=== PATIENT | female | born 1935 | race Caucasian/White ===

== ENCOUNTER → 2018-02-15 | Outpatient (CLI) | payer MEDICARE, BC ==
[2018-02-15 13:19] LABS: Basophils % (A) 0 %; Eosinophils # (A) 0.2 k/uL (0-0.7); Eosinophils % (A) 2 %; HCT 45.8 % (34.0-46.0); HGB 14.8 gm/dL (11.4-16.0); Lymphocytes # (A) 2.8 k/uL (1.0-4.8); Lymphocytes % (A) 32 %; MCH 32.7 pg (25.0-35.0); MCHC 32.3 g/dL (31.0-37.0); MCV 101.4 fL (80.0-100.0); Macrocytosis Slight; Monocytes # (A) 0.5 k/uL (0-1.0); Monocytes % (A) 5 %; Neutrophils # (A) 4.9 k/uL (1.3-7.7); Neutrophils % (A) 56 %; Platelet Count 179 k/uL (150-450); RBC 4.51 m/uL (3.80-5.40); WBC 8.7 k/uL (3.8-10.6)
[2018-02-15 19:16] LABS: T4, Free (Free Thyroxine) 1.5 ng/dL (0.80-1.80)
[2018-02-15 19:17] LABS: Albumin 4.2 g/dL (3.80-4.90); Albumin/Globulin Ratio 1.4 (1.20-2.10); Anion Gap 11.4 mmol/L (4.00-12.00); Calcium 9.9 mg/dL (8.7-10.3); Carbon Dioxide 23.6 mmol/L (21.6-31.8); LDL Cholesterol,Calculated 105.8 mg/dL (0.0-131.0); Magnesium 1.8 mg/dL (1.5-2.4); Potassium 4.5 mmol/L (3.5-5.5); Total Protein 7.2 g/dL (6.2-8.2); VLDL Calculation 23.2 mg/dL (5.00-40.00)
== END | disposition home or self-care (01) ==
LOC: LABWHC1 12:40
PROVIDERS: ATTEND Family Medicine
DX: E55.9 Vitamin D deficiency, unspecified (principal); R53.83 Other fatigue; E03.8 Other specified hypothyroidism; E78.5 Hyperlipidemia, unspecified
CPT/HCPCS: 36415; 80053; 80061; 82306; 82607; 83735; 84439; 84443; 85025

== ENCOUNTER 2018-07-12 13:20 | Emergency (ER) | payer MEDICARE, BC ==
[2018-07-12] MEDS ORDERED: ACETAMINOPHEN TAB 500 MG TAB PO STA (15:31)
--- NOTE | 2018-07-12 15:32 | XR ---
EXAMINATION TYPE: XR foot complete LT DATE OF EXAM: 07/12/2018 CLINICAL HISTORY: Left foot pain. Focal pain and swelling of the left second toe without injury. TECHNIQUE: Frontal, lateral, and oblique images of the left foot are obtained. COMPARISON: None FINDINGS: There is no acute fracture/dislocation evident in the left foot. The joint spaces in the left foot appear within normal limits. The overlying soft tissue appears unremarkable. There is a pu nctate radiopaque foreign body of the medial aspect of the soft tissues of the second toe of the left foot adjacent to the proximal diaphysis of the proximal phalanx. This measures 1 mm. There is genera lized osseous demineralization of the left foot. Degenerative changes are seen of the forefoot and mi dfoot. There is a small plantar enthesophyte and moderate Achilles enthesophyte. IMPRESSION: 1. No acute fracture or dislocation in the left foot. 2. Punctate foreign body of the medial second digit soft tissues near the 1st-2nd digit webspace. 3. Diffuse osseous demineralization, heel spurs, and degenerative changes of the forefoot and midfoot .
--- NOTE | 2018-07-12 15:54 | ED ---
Extremity Problem HPI - General Chief complaint: Extremity Problem,Nontraumatic Stated complaint: Leg Swelling, Foot Pain Time Seen by Provider: 07/12/18 15:05 Source: patient, family Mode of arrival: wheelchair Limitations: no limitations - History of Present Illness Initial comments: Patient is a 82-year-old female complaining of the left second toe pain 1 week. Patient denies any trauma. Patient was in the hospital visiting her and one of nurses saw her swelling and thought she should get an x-ray. Patient has chronic lower extremity swelling. No other complaints at this time. - Related Data Home Medications Medication Instructions Recorded Confirmed Atorvastatin Calcium [Lipitor] 10 mg PO HS 07/12/18 07/12/18 Levothyroxine Sodium [Synthroid] 150 mcg PO MOTUWETH 07/12/18 07/12/18 Levothyroxine Sodium [Synthroid] 225 mcg PO SUFRSA 07/12/18 07/12/18 Losartan [Cozaar] 25 mg PO DAILY 07/12/18 07/12/18 amLODIPine [Norvasc] 10 mg PO DAILY 07/12/18 07/12/18 Allergies Allergy/AdvReac Type Severity Reaction Status Date / Time No Known Allergies Allergy Verified 07/12/18 15:29 Review of Systems ROS Statement: Those systems with pertinent positive or pertinent negative responses have been documented in the HPI. ROS Other: All systems not noted in ROS Statement are negative. Past Medical History Past Medical History: Cancer, Hyperlipidemia, Hypertension, Myocardial Infarction ([place]), Osteoarthritis (OA), Thyroid Disorder Additional Past Surgical History / Comment(s): BILATERAL MASTECTOMY, MELANOMA Past Psychological History: Anxiety Smoking Status: Never smoker Past Alcohol Use History: None Reported Past Drug Use History: None Reported General Exam - General Exam Comments Initial Comments: GENERAL: Well-appearing, well-nourished and in no acute distress. HEAD: Atraumatic, normocephalic. EYES: Pupils equal round and reactive to light, extraocular movements intact, sclera anicteric, conjunctiva are normal. ENT: TMs normal, nares patent, oropharynx clear without exudates. Moist mucous membranes. NECK: Normal range of motion, supple without lymphadenopathy or JVD. LUNGS: Breath sounds clear to auscultation bilaterally and equal. No wheezes rales or rhonchi. HEART: Regular rate and rhythm without murmurs, rubs or gallops. ABDOMEN: Soft, nontender, normoactive bowel sounds. No guarding, no rebound. No masses appreciated. : Deferred EXTREMITIES: TTP over the left second toe. Range of motion is normal. Sensation is normal. 2+ pitting edema in the left foot NEUROLOGICAL: Cranial nerves II through XII grossly intact. Normal speech, normal gait. PSYCH: Normal mood, normal affect. SKIN: Warm, Dry, normal turgor, no rashes or lesions noted. Limitations: no limitations Course Vital Signs 07/12/18 14:08 Temperature 97.9 F Pulse Rate 67 Respiratory 16 Rate Blood Pressure 154/74 O2 Sat by Pulse 99 Oximetry Medical Decision Making - Medical Decision Making Patient is a 82-year-old female complaining of left second toe pain 1 week. On exam she is tender to palpation, full range of motion. X-ray shows possible foreign body in the webspace between the first and second toe. Correlation on exam reveals no erythema and no signs of infection. Patient will be discharged and will follow up with ortho if pain continues. Disposition Clinical Impression: Left foot pain Disposition: HOME SELF-CARE Condition: Stable Instructions (If sedation given, give patient instructions): Arthralgia (ED) Additional Instructions: Please return to the Emergency Department if symptoms worsen or any other concerns. Follow up with orthopedic if pain continues. Is patient prescribed a controlled substance at d/c from ED?: No Referrals: Lindsay Coy MD [Primary Care Provider] - 1-2 days
[2018-07-12 16:14] VITALS: BP 132/55; PULSE 69; RESP 18; TEMP 98.3
== END 2018-07-12 16:14 | disposition home or self-care (01) ==
LOC: EC 13:20
DX: M79.672 Pain in left foot (principal); R60.0 Localized edema; M79.675 Pain in left toe(s); E78.5 Hyperlipidemia, unspecified; I10 Essential (primary) hypertension; E07.9 Disorder of thyroid, unspecified; I25.2 Old myocardial infarction; Z79.890 Hormone replacement therapy; Z79.899 Other long term (current) drug therapy; Z87.39 Personal history of other diseases of the musculoskeletal system and connective tissue; Z85.820 Personal history of malignant melanoma of skin; Z98.890 Other specified postprocedural states
CPT/HCPCS: 99283

== ENCOUNTER 2018-07-18 12:27 | Emergency (ER) | payer MEDICARE, BC ==
[2018-07-18] MEDS ORDERED: KETOROLAC 30 MG/ML 1 ML VIAL IM STA (13:30)
--- NOTE | 2018-07-18 13:35 | ED ---
General Adult HPI - General Chief complaint: Extremity Problem,Nontraumatic Stated complaint: left foot (gout) Time Seen by Provider: 07/18/18 13:19 Source: patient, RN notes reviewed, old records reviewed Mode of arrival: ambulatory Limitations: physical limitation - History of Present Illness Initial comments: 82-year-old female with left second toe pain for the past several weeks. She denies injury or trauma. She was seen in the emergency department approximately one week ago, she had an x-ray at that time. She states the pain has persisted. She's been taking Tylenol arthritis with minimal relief. She denies fever. She states there was some swelling although this has improved. Denies pain at the ankle or calf. No known history of gout or pseudogout. - Related Data Home Medications Medication Instructions Recorded Confirmed Atorvastatin Calcium [Lipitor] 10 mg PO HS 07/12/18 07/12/18 Levothyroxine Sodium [Synthroid] 150 mcg PO MOTUWETH 07/12/18 07/12/18 Levothyroxine Sodium [Synthroid] 225 mcg PO SUFRSA 07/12/18 07/12/18 Losartan [Cozaar] 25 mg PO DAILY 07/12/18 07/12/18 amLODIPine [Norvasc] 10 mg PO DAILY 07/12/18 07/12/18 Previous Rx's Medication Instructions Recorded Ibuprofen [Motrin] 400 mg PO Q8HR #15 tab 07/18/18 Allergies Allergy/AdvReac Type Severity Reaction Status Date / Time No Known Allergies Allergy Verified 07/18/18 13:10 Review of Systems ROS Statement: Those systems with pertinent positive or pertinent negative responses have been documented in the HPI. ROS Other: All systems not noted in ROS Statement are negative. Past Medical History Past Medical History: Cancer, Hyperlipidemia, Hypertension, Myocardial Infarction ([place]), Osteoarthritis ([place]), Thyroid Disorder History of Any Multi-Drug Resistant Organisms: None Reported Additional Past Surgical History / Comment(s): BILATERAL MASTECTOMY, MELANOMA Past Psychological History: Anxiety Smoking Status: Never smoker Past Alcohol Use History: None Reported Past Drug Use History: None Reported General Exam Limitations: physical limitation General appearance: alert, in no apparent distress Head exam: Present: atraumatic, normocephalic Eye exam: Present: normal appearance, PERRL Neck exam: Present: normal inspection. Absent: tenderness, meningismus Respiratory exam: Present: normal lung sounds bilaterally. Absent: respiratory distress, wheezes Cardiovascular Exam: Present: regular rate, normal rhythm GI/Abdominal exam: Present: soft. Absent: distended, tenderness Extremities exam: Present: other (Left foot, normal cap refill, no swelling of the digits or midfoot, there is tenderness at the base of the second toe. No pain with range of motion. No swelling or erythema.) Course Vital Signs 07/18/18 13:07 Temperature 97.9 F Pulse Rate 84 Respiratory 18 Rate Blood Pressure 128/65 O2 Sat by Pulse 99 Oximetry Medical Decision Making - Medical Decision Making 82-year-old female with left second toe pain. Exam unremarkable, no signs of infection in the foot or toes. No external signs of trauma, no bruising, normal range of motion. She does have some point tenderness at the base of the second toe. She is currently taking Tylenol arthritis. She will be prescribed short course of Motrin 400. She will follow-up with her primary care physician. She will be given orthopedic follow-up. Disposition Clinical Impression: Left foot pain, Osteoarthritis Disposition: HOME SELF-CARE Condition: Good Prescriptions: Ibuprofen [Motrin] 400 mg PO Q8HR #15 tab Is patient prescribed a controlled substance at d/c from ED?: No Referrals: Lindsay Coy MD [Primary Care Provider] - 1-2 days Time of Disposition: 13:34
[2018-07-18 14:40] VITALS: BP 122/66; PULSE 81; RESP 16; TEMP 98
== END 2018-07-18 14:39 | disposition home or self-care (01) ==
LOC: EC 12:27
DX: M19.072 Primary osteoarthritis, left ankle and foot (principal); I10 Essential (primary) hypertension; E78.5 Hyperlipidemia, unspecified; I25.2 Old myocardial infarction; E07.9 Disorder of thyroid, unspecified; Z79.890 Hormone replacement therapy; Z79.899 Other long term (current) drug therapy; Z85.820 Personal history of malignant melanoma of skin; Z90.13 Acquired absence of bilateral breasts and nipples
CPT/HCPCS: 99283; 96372; J1885

== ENCOUNTER → 2018-09-20 | Outpatient (CLI) | payer MEDICARE, BC ==
[2018-09-20 14:05] LABS: Basophils # (A) 0.1 k/uL (0-0.2); Basophils % (A) 1 %; Eosinophils # (A) 0.1 k/uL (0-0.7); Eosinophils % (A) 1 %; HCT 40.9 % (34.0-46.0); HGB 13.3 gm/dL (11.4-16.0); Lymphocytes # (A) 1.9 k/uL (1.0-4.8); Lymphocytes % (A) 21 %; MCH 33.1 pg (25.0-35.0); MCHC 32.4 g/dL (31.0-37.0); MCV 102.1 fL (80.0-100.0); Macrocytosis Slight; Mean Platelet Volume 10.4; Monocytes # (A) 0.8 k/uL (0-1.0); Monocytes % (A) 9 %; Neutrophils % (A) 66 %; Platelet Count 218 k/uL (150-450); RDW 15.2 % (11.5-15.5); WBC 9.2 k/uL (3.8-10.6)
[2018-09-20 19:52] LABS: T4, Free (Free Thyroxine) 1.7 ng/dL (0.80-1.80)
[2018-09-20 20:04] LABS: African American GFR (CKD) 34.7 (60.0-200.0); Albumin 3.7 g/dL (3.80-4.90); Albumin/Globulin Ratio 1.37 (1.60-3.17); Anion Gap 11.4 mmol/L (4.00-12.00); BUN/Creat Ratio 13.13 Ratio (12.00-20.00); Calcium 9.6 mg/dL (8.7-10.3); Carbon Dioxide 23.6 mmol/L (21.6-31.8); Chol/HDL Ratio 3.32; Globulin 2.7 g/dL (1.6-3.3); LDL Cholesterol,Calculated 107.8 mg/dL (0.0-131.0); Magnesium 1.8 mg/dL (1.5-2.4); Non-African American GFR(CKD) 29.9 (60.0-200.0); Potassium 4.9 mmol/L (3.5-5.5); Total Bilirubin 1.4 mg/dL (0.3-1.2); Total Protein 6.4 g/dL (6.2-8.2); VLDL Calculation 24.2 mg/dL (5.00-40.00)
== END | disposition home or self-care (01) ==
LOC: LABWHC1 12:43
PROVIDERS: ATTEND Family Medicine
DX: E78.5 Hyperlipidemia, unspecified (principal); E03.8 Other specified hypothyroidism; R11.0 Nausea; R18.8 Other ascites
CPT/HCPCS: 36415; 80053; 80061; 83690; 83735; 84439; 84443; 85025

== ENCOUNTER → 2018-09-29 | Outpatient (CLI) | payer MEDICARE, BC ==
[2018-09-30 00:35] LABS: African American GFR (CKD) 30.1 (60.0-200.0); Anion Gap 14.2 mmol/L (4.00-12.00); BUN/Creat Ratio 13.33 Ratio (12.00-20.00); Calcium 9.6 mg/dL (8.7-10.3); Carbon Dioxide 23.8 mmol/L (21.6-31.8); Non-African American GFR(CKD) 25.9 (60.0-200.0); Potassium 4.7 mmol/L (3.5-5.5)
== END | disposition home or self-care (01) ==
LOC: LABWHC1 15:27
PROVIDERS: ATTEND Family Medicine
DX: N17.9 Acute kidney failure, unspecified (principal); R18.8 Other ascites
CPT/HCPCS: 36415; 80048; 85652

== ENCOUNTER → 2018-09-30 | Outpatient (CLI) | payer MEDICARE, BC ==
--- NOTE | 2018-09-30 20:32 | CT ---
EXAMINATION TYPE: CT abdomen pelvis wo con DATE OF EXAM: 09/30/2018 COMPARISON: None HISTORY: Ascites and lower leg edema. CT DLP: 971 mGycm Examination of the solid and hollow viscera is limited given the lack of contrast. FINDINGS: LUNG BASES: No evidence for nodule. No evidence for infiltrate. LIVER/GB: Diminutive liver with peripheral nodular contour compatible with cirrhotic liver disease. T here is evidence of force surrounding ascites throughout the upper abdomen. Cholelithiasis is identif ied. PANCREAS: No pancreatic mass identified. No inflammatory process seen. SPLEEN: No evidence for splenomegaly. No intrasplenic lesions seen. ADRENALS: No adrenal nodules identified. Mild right-sided adrenal glandular hyperplasia. KIDNEYS: No evidence for renal mass. No nephrolithiasis. No hydronephrosis. No renal hematoma identif ied. BOWEL: There appear to be partial colectomy changes. Correlate surgical history. No evidence of bowel obstruction. No inflammatory process. Lymph nodes: No evidence for adenopathy greater than 1 cm. Abdominal aorta: Atheromatous changes seen. No evidence for aneurysm. Genital organs: No significant abnormality. Other: Moderately severe four-quadrant ascites. IMPRESSION: 1. Findings compatible with cirrhotic liver disease. 2. Four-quadrant ascites. 3. Cholelithiasis.
== END | disposition home or self-care (01) ==
LOC: RADCTMAIN 15:15
PROVIDERS: ATTEND Family Medicine
DX: K80.20 Calculus of gallbladder without cholecystitis without obstruction (principal); R18.8 Other ascites; C43.39 Malignant melanoma of other parts of face; Z85.3 Personal history of malignant neoplasm of breast
CPT/HCPCS: 74176

== ENCOUNTER 2018-10-04 10:59 | Inpatient (IN) | payer MEDICARE, BC ==
[2018-10-04] MEDS ORDERED: FUROSEMIDE 10 MG/ML 4 ML VIAL IV STA (11:31)
[2018-10-04] MEDS ORDERED: IPRATROPIUM-ALBUTEROL 3 ML NEB INHALATION STA (11:31)
--- NOTE | 2018-10-04 11:41 | ED ---
SOB HPI - General Chief Complaint: Shortness of Breath Stated Complaint: RETAINING FLUID Time Seen by Provider: 10/04/18 11:12 Source: patient, RN notes reviewed Mode of arrival: ambulatory Limitations: no limitations - History of Present Illness Initial Comments: This 82-year-old female who presents from her doctor's office with complaints of shortness of breath exertional dyspnea peripheral edema also recent weight gain. She also did have a CAT scan the abdomen pelvis on that she is not sure with the results are. The CAT scan she is demonstrating a strike liver ascites and cholelithiasis. No fevers chills she also states she's had some nausea and increased amounts of flatus. No other modifying factors at this time. She is nonsmoker a nondrinker MD Complaint: shortness of breath - Related Data Home Medications Medication Instructions Recorded Confirmed Atorvastatin Calcium [Lipitor] 10 mg PO HS 07/12/18 10/04/18 Levothyroxine Sodium [Synthroid] 150 mcg PO MOTUWETH 07/12/18 10/04/18 Levothyroxine Sodium [Synthroid] 225 mcg PO SUFRSA 07/12/18 10/04/18 Losartan [Cozaar] 25 mg PO DAILY 07/12/18 10/04/18 amLODIPine [Norvasc] 10 mg PO DAILY 07/12/18 10/04/18 Cholecalciferol (Vitamin D3) 2,000 unit PO DAILY 07/18/18 10/04/18 [Vitamin D3] Multivitamins, Thera [Multivitamin 1 tab PO DAILY 07/18/18 10/04/18 (formulary)] Furosemide [Lasix] 20 mg PO DAILY 10/04/18 10/04/18 Allergies Allergy/AdvReac Type Severity Reaction Status Date / Time aspirin AdvReac Unknown Verified 10/04/18 11:24 hydrochlorothiazide AdvReac Unknown Verified 10/04/18 11:25 Review of Systems ROS Statement: Those systems with pertinent positive or pertinent negative responses have been documented in the HPI. ROS Other: All systems not noted in ROS Statement are negative. Past Medical History Past Medical History: Cancer, Hyperlipidemia, Hypertension, Myocardial Infarction ([place]), Osteoarthritis (OA), Thyroid Disorder History of Any Multi-Drug Resistant Organisms: None Reported Additional Past Surgical History / Comment(s): BILATERAL MASTECTOMY, MELANOMA Past Psychological History: Anxiety Smoking Status: Never smoker Past Alcohol Use History: None Reported Past Drug Use History: None Reported General Exam - General Exam Comments Initial Comments: This is a well-developed well-nourished awake alert oriented 3 female Limitations: no limitations General appearance: alert, anxious Head exam: Present: atraumatic, normocephalic, normal inspection Eye exam: Present: normal appearance, PERRL, EOMI. Absent: scleral icterus, conjunctival injection, periorbital swelling ENT exam: Present: normal exam, mucous membranes moist Neck exam: Present: normal inspection. Absent: tenderness, meningismus, lymphadenopathy Respiratory exam: Present: decreased breath sounds. Absent: respiratory distress, wheezes, rales, rhonchi, stridor Cardiovascular Exam: Present: regular rate, normal rhythm, normal heart sounds. Absent: systolic murmur, diastolic murmur, rubs, gallop, clicks GI/Abdominal exam: Present: soft, distended, normal bowel sounds, other (Exam consistent with ascites). Absent: tenderness, guarding, rebound, rigid Extremities exam: Present: full ROM, normal capillary refill, pedal edema. Absent: tenderness, joint swelling, calf tenderness Back exam: Present: normal inspection Neurological exam: Present: alert, oriented X3, CN II-XII intact Psychiatric exam: Present: normal affect, normal mood Skin exam: Present: warm, dry, intact, normal color. Absent: rash Course Vital Signs 10/04/18 10/04/18 10/04/18 11:02 11:45 11:53 Temperature 97.6 F Pulse Rate 95 77 78 Respiratory 18 Rate Blood Pressure 134/76 O2 Sat by Pulse 100 Oximetry - Reevaluation(s) Reevaluation #1: 10/04/18 14:09 Patient is feeling slightly better after the breathing treatment Medical Decision Making - Medical Decision Making I did discuss the findings with the patient family members as well as with Dr. Myles patient be admitted nephrology consultation patient does have evidence of CHF - Lab Data Result diagrams: 10/04/18 11:25 10/04/18 11:25 Lab Results 10/04/18 10/04/18 10/04/18 Range/Units 11:25 11:25 11:25 WBC 9.6 (3.8-10.6) k/uL RBC 4.07 (3.80-5.40) m/uL Hgb 13.2 (11.4-16.0) gm/dL Hct 40.0 (34.0-46.0) % MCV 98.3 (80.0-100.0) fL MCH 32.6 (25.0-35.0) pg MCHC 33.1 (31.0-37.0) g/dL RDW 15.4 (11.5-15.5) % Plt Count 248 (150-450) k/uL Neutrophils % 70 % Lymphocytes % 20 % Monocytes % 7 % Eosinophils % 1 % Basophils % 0 % Neutrophils # 6.7 (1.3-7.7) k/uL Lymphocytes # 1.9 (1.0-4.8) k/uL Monocytes # 0.7 (0-1.0) k/uL Eosinophils # 0.1 (0-0.7) k/uL Basophils # 0.0 (0-0.2) k/uL PT (9.0-12.0) sec INR (<1.2) APTT (22.0-30.0) sec Sodium 136 L (137-145) mmol/L Potassium 4.1 (3.5-5.1) mmol/L Chloride 101 (98-107) mmol/L Carbon Dioxide 21 L (22-30) mmol/L Anion Gap 14 mmol/L BUN 24 H (7-17) mg/dL Creatinine 1.81 H (0.52-1.04) mg/dL Est GFR (CKD-EPI)AfAm 30 (>60 ml/min/1.73 sqM) Est GFR (CKD-EPI)NonAf 26 (>60 ml/min/1.73 sqM) Glucose 125 H (74-99) mg/dL Calcium 9.8 (8.4-10.2) mg/dL Magnesium 1.8 (1.6-2.3) mg/dL Total Bilirubin 1.9 H (0.2-1.3) mg/dL AST 72 H (14-36) U/L ALT 32 (9-52) U/L Alkaline Phosphatase 166 H (38-126) U/L Troponin I (0.000-0.034) ng/mL NT-Pro-B Natriuret Pep 1500 pg/mL Total Protein 7.4 (6.3-8.2) g/dL Albumin 3.8 (3.5-5.0) g/dL 10/04/18 10/04/18 Range/Units 11:25 11:25 WBC (3.8-10.6) k/uL RBC (3.80-5.40) m/uL Hgb (11.4-16.0) gm/dL Hct (34.0-46.0) % MCV (80.0-100.0) fL MCH (25.0-35.0) pg MCHC (31.0-37.0) g/dL RDW (11.5-15.5) % Plt Count (150-450) k/uL Neutrophils % % Lymphocytes % % Monocytes % % Eosinophils % % Basophils % % Neutrophils # (1.3-7.7) k/uL Lymphocytes # (1.0-4.8) k/uL Monocytes # (0-1.0) k/uL Eosinophils # (0-0.7) k/uL Basophils # (0-0.2) k/uL PT 12.1 H (9.0-12.0) sec INR 1.2 H (<1.2) APTT 25.6 (22.0-30.0) sec Sodium (137-145) mmol/L Potassium (3.5-5.1) mmol/L Chloride (98-107) mmol/L Carbon Dioxide (22-30) mmol/L Anion Gap mmol/L BUN (7-17) mg/dL Creatinine (0.52-1.04) mg/dL Est GFR (CKD-EPI)AfAm (>60 ml/min/1.73 sqM) Est GFR (CKD-EPI)NonAf (>60 ml/min/1.73 sqM) Glucose (74-99) mg/dL Calcium (8.4-10.2) mg/dL Magnesium (1.6-2.3) mg/dL Total Bilirubin (0.2-1.3) mg/dL AST (14-36) U/L ALT (9-52) U/L Alkaline Phosphatase (38-126) U/L Troponin I 0.021 (0.000-0.034) ng/mL NT-Pro-B Natriuret Pep pg/mL Total Protein (6.3-8.2) g/dL Albumin (3.5-5.0) g/dL - EKG Data -: EKG Interpreted by Me (EKG shows sinus rhythm of 70 and with premature atrial complexes. Interval) EKG Comments: Rate was 79 CA interval 176 QRS duration 88 QT since QTC 382/438 nonspecific inferior and anterior configuration's - Radiology Data Radiology results: report reviewed (I did review the imaging and report or is evidence of a right small pleural effusions some increased markings.), image reviewed Disposition Clinical Impression: Congestive heart failure, Acute kidney injury, Peripheral edema, Exertional dyspnea, Bronchospasm Disposition: ADMITTED IP TO THIS HOSP Condition: Fair Referrals: Lindsay Coy MD [Primary Care Provider] - 1-2 days
[2018-10-04 12:02] LABS: Albumin 3.8 g/dL (3.5-5.0); Calcium 9.8 mg/dL (8.4-10.2); Magnesium 1.8 mg/dL (1.6-2.3); Potassium 4.1 mmol/L (3.5-5.1); Total Bilirubin 1.9 mg/dL (0.2-1.3); Total Protein 7.4 g/dL (6.3-8.2)
--- NOTE | 2018-10-04 12:15 | XR ---
EXAMINATION TYPE: XR chest 2V DATE OF EXAM: 10/04/2018 COMPARISON: 08/02/2010 HISTORY: Difficulty breathing TECHNIQUE: Frontal and lateral views of the chest are obtained. FINDINGS: There is no focal air space opacity, pulmonary vascular congestion, or pneumothorax seen. Very trace right pleural effusion blunts the costophrenic angle. Slight left perihilar peribronchial cuffing. The cardiac silhouette size is within normal limits. The osseous structures are intact. Mo derate multilevel degenerative changes of the thoracic spine. IMPRESSION: 1. Trace right pleural effusion. 2. Slight left perihilar peribronchial cuffing. Consider bronchitis or reactive airway disease.
[2018-10-04 12:18] LABS: Basophils % (A) 0 %; Eosinophils # (A) 0.1 k/uL (0-0.7); Eosinophils % (A) 1 %; HGB 13.2 gm/dL (11.4-16.0); Lymphocytes # (A) 1.9 k/uL (1.0-4.8); Lymphocytes % (A) 20 %; MCH 32.6 pg (25.0-35.0); MCHC 33.1 g/dL (31.0-37.0); MCV 98.3 fL (80.0-100.0); Mean Platelet Volume 10.3; Monocytes # (A) 0.7 k/uL (0-1.0); Monocytes % (A) 7 %; Neutrophils # (A) 6.7 k/uL (1.3-7.7); Neutrophils % (A) 70 %; Platelet Count 248 k/uL (150-450); RBC 4.07 m/uL (3.80-5.40); RDW 15.4 % (11.5-15.5); WBC 9.6 k/uL (3.8-10.6)
[2018-10-04 12:19] LABS: INR 1.2 (<1.2); Partial Thromboplastin Time 25.6 sec (22.0-30.0); Prothrombin Time 12.1 sec (9.0-12.0)
--- NOTE | 2018-10-04 15:50 | P.HPIM ---
History of Present Illness H&P Date: 10/04/18 Chief Complaint: retaining fluid and shortness of breath The patient is a 82-year-old morbidly obese female with a past medical history of essential hypertension, hyperlipidemia, osteoarthritis, hypothyroidism, breast cancer status post bilateral mastectomy who presents to the ER via private vehicle with chief complaint of difficulty breathing and increased swelling in her lower extremities. Apparently the patient began having worsening lower extremity swelling/fluid retention 2 weeks ago and then subsequently presented to her PCP and was started on Lasix 20 mg, the patient denied any improvement with Lasix and her dose was doubled to 40 mg, during this time the patient has had increasing difficulty breathing, she describes increasing abdominal distention with some pressure making it difficult for her to take deep breaths, she denies any abdominal pain, denies nausea and vomiting, she reports episodes of constipation. She denies any coughs or subjective fevers chills or night sweats, she denies any history of smoking Or alcohol use. At home the patient is normally able to ambulate with assistive devices using a cane walker and wheelchair. Patient reports that she had a CT abdomen and pelvis done on and only got the results today when she called Her PCP with worsening complaints. Review of records of CT abdomen and pelvis 09/30 suggests findings compatible with cirrhotic liver disease, with 4 quadrant ascites and cholelithiasis. In the ER the patient had a comprehensive workup chest x-ray showed trace right pleural effusion with slight left perihilar peribronchial cuffing. CBC was unremarkable, serum sodium was 136, serum bicarb 21, serum creatinine 1.8, total bilirubin 1.9, AST 72, ALT 32 alk phos 166, NT proBNP 1500. Patient was given a dose of Lasix and recommended for admission Review of Systems Pertinent positives per HPI all other review of systems otherwise negative Past Medical History Past Medical History: Cancer, Hyperlipidemia, Hypertension, Myocardial Infarction ([place]), Osteoarthritis ([place]), Thyroid Disorder History of Any Multi-Drug Resistant Organisms: None Reported Additional Past Surgical History / Comment(s): BILATERAL MASTECTOMY, MELANOMA Past Psychological History: Anxiety Smoking Status: Never smoker Past Alcohol Use History: None Reported Past Drug Use History: None Reported - Past Family History Father Additional Family Medical History / Comment(s): Father had heart disease and of this at the age of 73 yrs. Mother Family Medical History: Blood Disorder, Hypertension Additional Family Medical History / Comment(s): Von Willebrand disease. Mother at the age of 88 or 89yrs. Brother(s) Family Medical History: Blood Disorder Additional Family Medical History / Comment(s): Brother of Von Willebrand. Medications and Allergies Home Medications Medication Instructions Recorded Confirmed Type Atorvastatin Calcium [Lipitor] 10 mg PO HS 07/12/18 10/04/18 History Levothyroxine Sodium [Synthroid] 150 mcg PO MOTUWETH 07/12/18 10/04/18 History Levothyroxine Sodium [Synthroid] 225 mcg PO SUFRSA 07/12/18 10/04/18 History Losartan [Cozaar] 25 mg PO DAILY 07/12/18 10/04/18 History amLODIPine [Norvasc] 10 mg PO DAILY 07/12/18 10/04/18 History Cholecalciferol (Vitamin D3) 2,000 unit PO DAILY 07/18/18 10/04/18 History [Vitamin D3] Multivitamins, Thera [Multivitamin 1 tab PO DAILY 07/18/18 10/04/18 History (formulary)] Furosemide [Lasix] 20 mg PO DAILY 10/04/18 10/04/18 History Allergies Allergy/AdvReac Type Severity Reaction Status Date / Time aspirin AdvReac Unknown Verified 10/04/18 11:24 hydrochlorothiazide AdvReac Unknown Verified 10/04/18 11:25 Physical Exam Vitals: Vital Signs Temp Pulse Resp BP Pulse Ox 10/04/18 11:53 78 10/04/18 11:45 77 10/04/18 11:02 97.6 F 95 18 134/76 100 Intake and Output 10/04/18 10/04/18 10/04/18 06:59 14:59 22:59 Other: Weight 86.183 kg Constitutional: No acute distress, conversant, pleasant Eyes: Anicteric sclerae, moist conjunctiva, no lid-lag, PERRLA ENMT: NC/AT,Oropharynx clear, no erythema, exudates Neck:Supple, FROM, no masses, or JVD, No carotid bruits; No thyromegaly Lungs: Clear to auscultation, Clear to percussion, Normal respiratory effort, no accessory muscle use Cardiovascular: Heart regular in rate and rhythm, No murmurs, gallops, or rubs, 3 + pitting bipedal peripheral edema Abdominal: Soft Nontender, nom distended, no guarding, no rebound or rigidity, Normoactive bowel sounds No hepatomegaly, No splenomegaly, No palpable mass No abdominal wall hernia noted Skin: Normal temperature, tone, texture, turgor, No induration No subcutaneous nodules, No rash, lesions, No ulcers Extremities:No digital cyanosis No clubbing, Pedal pulses intact and symmetrical Radial pulses intact and symmetrical Normal gait and station, No calf tenderness Psychiatric: Alert and oriented to person, place and time, Appropriate affect Intact judgement Neuro: Muscles Strength 5/5 in all 4 extremities, Sensation to light touch grossly present throughout, Cranial nerves II-XII grossly intact. No focal sensory deficits Results CBC & Chem 7: 10/04/18 11:25 10/04/18 11:25 Labs: Abnormal Lab Results - Last 24 Hours (Table) 10/04/18 10/04/18 Range/Units 11:25 11:25 PT 12.1 H (9.0-12.0) sec INR 1.2 H (<1.2) Sodium 136 L (137-145) mmol/L Carbon Dioxide 21 L (22-30) mmol/L BUN 24 H (7-17) mg/dL Creatinine 1.81 H (0.52-1.04) mg/dL Glucose 125 H (74-99) mg/dL Total Bilirubin 1.9 H (0.2-1.3) mg/dL AST 72 H (14-36) U/L Alkaline Phosphatase 166 H (38-126) U/L Assessment and Plan Assessment: chronic medical conditions Essential hypertension Osteoarthritis Hyperlipidemia Hypothyroidism (1) Exertional dyspnea Current Visit: Yes Status: Acute Code(s): R06.09 - OTHER FORMS OF DYSPNEA SNOMED Code(s): 58746985 (2) Acute kidney injury Current Visit: Yes Status: Acute Code(s): N17.9 - ACUTE KIDNEY FAILURE, UNSPECIFIED SNOMED Code(s): 24026462 (3) Ascites Current Visit: Yes Status: Acute Code(s): R18.8 - OTHER ASCITES SNOMED Code(s): 188226573 (4) Peripheral edema Current Visit: Yes Status: Acute Code(s): R60.9 - EDEMA, UNSPECIFIED SNOMED Code(s): 425723295 (5) Elevated brain natriuretic peptide (BNP) level Current Visit: Yes Status: Acute Code(s): R79.89 - OTHER SPECIFIED ABNORMAL FINDINGS OF BLOOD CHEMISTRY SNOMED Code(s): 983844659 Plan: The patient is placed in observation anticipate a less than 2 midnight stay after presenting with exertional dyspnea, peripheral edema and recent CT abdomen and pelvis suggesting four-quadrant ascites and liver cirrhosis. The patient is noted to be in acute kidney injury likely prerenal. Patient is also had noted to have elevated NT proBNP 1500 and started on diuretics with Lasix, will plan to check a TSH, echocardiogram, PRANEETH, alpha-1 antitrypsin, ceruloplasmin, GGT, hepatitis panel, liver and renal ultrasound with plans for consultation to GI and nephrology respectively. The patient is continued on her home medications and her nephrotoxic agents are such as her ARB I will follow-up consultants recommendations and continue to follow her clinical course. CODE STATUS: Full code Discussed plan of care with: Patient and her family Anticipated discharge: 1-[address]: Home Prophylaxis : SCDs/heparin
--- NOTE | 2018-10-04 17:31 | US ---
EXAMINATION TYPE: US abd limited kidneys/bladder DATE OF EXAM: 10/04/2018 COMPARISON: NONE CLINICAL HISTORY: stone/cirrhosis. EXAM MEASUREMENTS: Liver Length: 12.7 cm Gallbladder Wall: 0.4 cm CBD: not visualized due to shadowing from stone in gallbladder/overlying bowel gas/ascites Right Kidney: 9.3 x 3.9 x 4.8 cm Left Kidney: 10.0 x 4.3 x 4.4 cm Pancreas: portions visualized wnl, partially obscured by bowel gas Liver: atrophied right lobe, lobular contour Gallbladder: wall slightly thickened, gallstones CBD: not visualized due to shadowing from stone in gallbladder/overlying bowel gas/ascites Right Kidney: No hydronephrosis or masses seen Left Kidney: Superior pole obscured by overlying bowel gas, limited views due to ascites and overlyi ng bowel gas Bladder: not fully distended, limited visualization Moderate to severe ascites. IMPRESSION: There are gallstones. No dilated ducts. Abdominal ascites. Kidneys show no sign of renal mass or obstruction.
[2018-10-04] MEDS: FUROSEMIDE 10 MG/ML 4 ML VIAL IV SCH (21:18)
[2018-10-04] MEDS: HEPARIN SODIUM,PORCINE 5,000 UNIT/ML 1 ML VIAL SQ SCH (21:19)
[2018-10-04] MEDS: ATORVASTATIN 10 MG TAB PO SCH (21:19)
[2018-10-04 22:30] LABS: Appearance,Urine Clear (Clear); Bacteria,Urine Moderate /hpf; Bilirubin,Urine Negative (Negative); Blood,Urine Negative (Negative); Color,Urine Yellow; Glucose,Urine (UA) Negative (Negative); Hyaline Casts,Urine 69 /lpf (0-2); Ketones,Urine Negative (Negative); Leukocyte Esterase,Urine Small (Negative); Mucus,Urine Rare /hpf; Nitrite,Urine Negative (Negative); Protein,Urine Negative (Negative); RBC,Urine 1 /hpf (0-5); Specific Gravity,Urine 1.013 (1.001-1.035); Squamous Epithelial Cell,Urine 3 /hpf (0-4); Urobilinogen,Urine <2.0 mg/dL (<2.0); WBC,Urine 4 /hpf (0-5)
[2018-10-05] MEDS: LEVOTHYROXINE 75 MCG TAB PO SCH (06:39)
[2018-10-05] MEDS ORDERED: FUROSEMIDE 40 MG TAB PO SCH (09:00)
[2018-10-05] MEDS ORDERED: LOSARTAN 25 MG TAB PO SCH (09:00)
[2018-10-05] MEDS: HEPARIN SODIUM,PORCINE 5,000 UNIT/ML 1 ML VIAL SQ SCH ×2 (09:07→20:34)
[2018-10-05] MEDS: MULTIVITAMINS, THERA 1 EACH TAB PO SCH (09:11)
[2018-10-05] MEDS: CHOLECALCIFEROL 1,000 UNIT TAB PO SCH (09:11)
[2018-10-05] MEDS: amLODIPine 10 MG TAB PO SCH (09:11)
[2018-10-05 10:53] VITALS: BMI 37.5
--- NOTE | 2018-10-05 12:04 | P.PN ---
Subjective Progress Note Date: 10/05/18 Patient seen and examined follow-up resting comfortably in bed, reports that she still feels significantly better. Reports her abdominal distention is significantly improved on diuretics, reports that her breathing is now back to baseline without any shortness of air. Also reports that her lower extremity swelling is improved. Right upper quadrant ultrasound indicating moderate to severe ascites, gallstones noted with slightly thickened gallbladder wall. Objective - Vital Signs Vital signs: Vital Signs Temp 98.1 F 10/05/18 08:30 Pulse 72 10/05/18 08:30 Resp 18 10/05/18 08:30 BP 119/56 10/05/18 08:30 Pulse Ox 99 10/05/18 08:30 Intake & Output 10/04/18 10/05/18 10/05/18 18:59 06:59 18:59 Intake Total 222 Output Total 700 Balance -700 222 Weight 86.183 kg 91.5 kg 91.5 kg Intake: Oral 222 Output: Urine 700 Other: Voiding Method Toilet # Voids 5 - Exam Constitutional: No acute distress, conversant, pleasant Eyes: Anicteric sclerae, moist conjunctiva, no lid-lag, PERRLA ENMT: NC/AT,Oropharynx clear, no erythema, exudates Neck:Supple, FROM, no masses, or JVD, No carotid bruits; No thyromegaly Lungs: Clear to auscultation, Clear to percussion, Normal respiratory effort, no accessory muscle use Cardiovascular: Heart regular in rate and rhythm, No murmurs, gallops, or rubs, 1.5 + pitting bipedal peripheral edema Abdominal: Soft Nontender, moderately distended improving, no guarding, no rebound or rigidity, Normoactive bowel sounds No hepatomegaly, No splenomegaly, No palpable mass No abdominal wall hernia noted Skin: Normal temperature, tone, texture, turgor, No induration No subcutaneous nodules, No rash, lesions, No ulcers Extremities:No digital cyanosis No clubbing, Pedal pulses intact and symmetrical Radial pulses intact and symmetrical Normal gait and station, No calf tenderness Psychiatric: Alert and oriented to person, place and time, Appropriate affect Intact judgement Neuro: Muscles Strength 5/5 in all 4 extremities, Sensation to light touch grossly present throughout, Cranial nerves II-XII grossly intact. No focal sensory deficits - Labs CBC & Chem 7: 10/04/18 11:25 10/04/18 11:25 Labs: Abnormal Lab Results - Last 24 Hours (Table) 10/04/18 10/04/18 10/04/18 Range/Units 07:00 11:25 11:25 PT 12.1 H (9.0-12.0) sec INR 1.2 H (<1.2) Sodium 136 L (137-145) mmol/L Carbon Dioxide 21 L (22-30) mmol/L BUN 24 H (7-17) mg/dL Creatinine 1.81 H (0.52-1.04) mg/dL Glucose 125 H (74-99) mg/dL Total Bilirubin 1.9 H (0.2-1.3) mg/dL GGT 176 H (12-43) U/L AST 72 H (14-36) U/L Alkaline Phosphatase 166 H (38-126) U/L Ur Leukocyte Esterase (Negative) Urine WBC Clumps (None) /hpf Urine Bacteria (None) /hpf Hyaline Casts (0-2) /lpf Urine Mucus (None) /hpf 10/04/18 Range/Units 21:25 PT (9.0-12.0) sec INR (<1.2) Sodium (137-145) mmol/L Carbon Dioxide (22-30) mmol/L BUN (7-17) mg/dL Creatinine (0.52-1.04) mg/dL Glucose (74-99) mg/dL Total Bilirubin (0.2-1.3) mg/dL GGT (12-43) U/L AST (14-36) U/L Alkaline Phosphatase (38-126) U/L Ur Leukocyte Esterase Small H (Negative) Urine WBC Clumps Rare H (None) /hpf Urine Bacteria Moderate H (None) /hpf Hyaline Casts 69 H (0-2) /lpf Urine Mucus Rare H (None) /hpf Assessment and Plan (1) Exertional dyspnea Narrative/Plan: * Now resolved with receiving diuretics * Likely secondary to volume overload due to underlying liver cirrhosis versus possible CHF * Abdominal ultrasound confirming moderate to severe ascites Current Visit: Yes Status: Acute Code(s): R06.09 - OTHER FORMS OF DYSPNEA SNOMED Code(s): 12145453 (2) Acute kidney injury Narrative/Plan: * Likely prerenal secondary to volume overload continue diuretics * Renal consultation requested * A follow-up today's labs Current Visit: Yes Status: Acute Code(s): N17.9 - ACUTE KIDNEY FAILURE, UNSPECIFIED SNOMED Code(s): 06952617 (3) Ascites Narrative/Plan: * Symptomatically patient feeling better with less abdominal distention * Computed tomography scan suggesting underlying liver cirrhosis * GI consultation requested awaiting recommendations, labs ordered * Consider diagnostic paracentesis Current Visit: Yes Status: Acute Code(s): R18.8 - OTHER ASCITES SNOMED Code(s): 165154358 (4) Peripheral edema Current Visit: Yes Status: Acute Code(s): R60.9 - EDEMA, UNSPECIFIED SNOMED Code(s): 748230506 (5) Elevated brain natriuretic peptide (BNP) level Current Visit: Yes Status: Acute Code(s): R79.89 - OTHER SPECIFIED ABNORMAL FINDINGS OF BLOOD CHEMISTRY SNOMED Code(s): 186889032 Plan: Disposition * Continue current treatment plan continue diuretics consultants recommendations * Continue to follow clinical course * Anticipated discharge 1-2 days
[2018-10-05 12:36] LABS: Basophils % (A) 0 %; Eosinophils # (A) 0.1 k/uL (0-0.7); Eosinophils % (A) 1 %; HCT 37.9 % (34.0-46.0); HGB 12.4 gm/dL (11.4-16.0); Lymphocytes # (A) 2.3 k/uL (1.0-4.8); Lymphocytes % (A) 22 %; MCH 32.2 pg (25.0-35.0); MCHC 32.8 g/dL (31.0-37.0); MCV 98.1 fL (80.0-100.0); Macrocytosis Slight; Monocytes # (A) 0.7 k/uL (0-1.0); Monocytes % (A) 7 %; Neutrophils # (A) 7.1 k/uL (1.3-7.7); Neutrophils % (A) 68 %; Platelet Count 216 k/uL (150-450); RBC 3.86 m/uL (3.80-5.40); RDW 15.7 % (11.5-15.5); WBC 10.4 k/uL (3.8-10.6)
[2018-10-05 12:44] LABS: Albumin 3.9 g/dL (3.5-5.0); Calcium 9.7 mg/dL (8.4-10.2); Total Bilirubin 1.6 mg/dL (0.2-1.3); Total Protein 7.5 g/dL (6.3-8.2)
[2018-10-05 12:45] LABS: Potassium 4.2 mmol/L (3.5-5.1)
--- NOTE | 2018-10-05 13:01 | ECHOF ---
Referral Reason:Peripheral edema MEASUREMENTS -------- HEIGHT: 162.6 cm WEIGHT: 86.2 kg BP: 139/76 RVIDd: 3.4 cm (< 3.3) IVSd: 1.1 cm (0.6 - 1.1) LVIDd: 3.3 cm (3.9 - 5.3) LVPWd: 1.4 cm (0.6 - 1.1) IVSs: 1.3 cm LVIDs: 2.9 cm LVPWs: 1.5 cm LA Diam: 4.1 cm (2.7 - 3.8) LAESV Index (A-L): 30.60 ml/m Ao Diam: 2.6 cm (2.0 - 3.7) AV Cusp: 1.5 cm (1.5 - 2.6) LA Diam: 4.2 cm (2.7 - 3.8) MV EXCURSION: 18.048 mm (> 18.000) MV EF SLOPE: 74 mm/s (70 - 150) EPSS: 0.8 cm MV E Pierre: 0.81 m/s MV DecT: 337 ms MV A Pierre: 1.08 m/s MV E/A Ratio: 0.76 RAP: 5.00 mmHg RVSP: 42.07 mmHg FINDINGS -------- Undetermined rhythm. This was a technically good study. The left ventricular size is normal. There is borderline concentric left ventricular hypertrophy. Overall left ventricular systolic function is normal with, an EF between 55 - 60 %. The diastolic filling pattern is normal for the age of the patient 10.31. The right ventricle is normal in size. The left atrium is mildly dilated. The right atrial size is normal. There is mild aortic valve sclerosis. There is no evidence of aortic regurgitation. Mild mitral annular calcification present. [id number] mitral regurgitation is present. Mild tricuspid regurgitation present. There is mild pulmonary hypertension. The right ventricular systolic pressure, as measured by Doppler, is 42.07mmHg. There is no pulmonic regurgitation present. The aortic root size is normal. There is a small, generalized pericardial effusion present. Large Pleural Effusion. CONCLUSIONS -------- 1. Undetermined rhythm. 2. This was a technically good study. 3. The left ventricular size is normal. 4. There is borderline concentric left ventricular hypertrophy. 5. Overall left ventricular systolic function is normal with, an EF between 55 - 60 %. 6. The diastolic filling pattern is normal for the age of the patient 10.31 7. The right ventricle is normal in size. 8. The left atrium is mildly dilated. 9. The right atrial size is normal. 10. There is mild aortic valve sclerosis. 11. Mild mitral annular calcification present. 12. [id number]-[id number] mitral regurgitation is present. 13. Mild tricuspid regurgitation present. 14. There is mild pulmonary hypertension. 15. The right ventricular systolic pressure, as measured by Doppler, is 42.07mmHg. 16. There is no pulmonic regurgitation present. 17. The aortic root size is normal. 18. There is a small, generalized pericardial effusion present. 19. Large Pleural Effusion. BRICK BAKER: Monica Oshea RDCS
[2018-10-05] MEDS: FUROSEMIDE 10 MG/ML 4 ML VIAL IV SCH ×2 (13:12→20:36)
--- NOTE | 2018-10-05 13:29 | P.CONS ---
History of Present Illness - Reason for Consult Consult date: 10/05/18 Cirrhosis Requesting physician: Kaleb Luz - Chief Complaint Shortness of breath lower extremity edema abdominal distention - History of Present Illness 82-year-old female with a past medical history of von Willebrand disease, breast carcinoma, skin cancer, hyperlipidemia, hypertension, [place] admitted with shortness of breath increased lower extremity edema and abdominal distention and firmness 2 weeks with elevated BUN/creatinine. Patient was placed on diuretics and r eports feeling leg edema is better abdomen is more soft. Consult requested for cirrhosis. Ultrasound of the kidneys bladder reported lobular contour atrophic right lobe liver measuring 12.7 cm. Gallstones present. CBD not visualized. Moderate to severe ascites. Patient noticed increased exacerbated leg swelling and abdominal girth over the last few weeks. Outpatient CT of abdomen and pelvis on 09/30/2018 findings compatible with cirrhotic liver disease four-quadrant ascites and gallstones. No history of known liver disorders. No history of alcoholism or hepatitis. Hepatitis screen nonreactive. Hemoglobin 13.2. White count 9.6. Platelet 248. INR 1.2. Total bilirubin 1.9. AST 72. ALT 32. AP 166. GGT 176. Ceruloplasmin 32.2. PRANEETH negative. BUN 24. Creatinine 1.8. Review of Systems Constitutional: Denies fever, chills, sweats, weight gain, or loss. Weakness. HEENT: Negative for migraines, blurred vision or loss, earaches, drainage, tinnitus, oral mucosal lesions, dysphagia, or odynophagia. CARDIAC: Negative for chest pain, arrhythmias, or palpitation. RESPIRATORY: Admitted with shortness of breath denies, hemoptysis, cough, or sputum production. GI: See HPI for pertinent findings. : Negative for hematuria, urgency, frequency, polyuria, or dysuria. GYNc: Negative vaginal discharge. MUSCULOSKELETAL: Negative for muscle aches, swelling, arthritis, and arthralgias. NEUROLOGIC: Negative for stroke or TIA. ENDOCRINE: Negative for thyroid problems. SKIN: Increased lower extremity edema. Negative for rash or itching. PSYCHIATRIC: Negative history for depression and anxiety Past Medical History Past Medical History: Cancer, Hyperlipidemia, Hypertension, Myocardial Infarction ([place]), Osteoarthritis (OA), Thyroid Disorder Additional Past Medical History / Comment(s): Bilateral breast cancer with mastectomies (years apart), facial melanoma, Von Willebrand disease, aortic and tricuspid murmur, arthritis in multiple joints, hypothyroid, lower leg edema at times, History of Any Multi-Drug Resistant Organisms: None Reported Past Surgical History: Breast Surgery, Hernia Repair Additional Past Surgical History / Comment(s): BILATERAL MASTECTOMY, MELANOMA Past Anesthesia/Blood Transfusion Reactions: No Reported Reaction Past Psychological History: Anxiety Smoking Status: Never smoker Past Alcohol Use History: None Reported Past Drug Use History: None Reported - Past Family History Father Additional Family Medical History / Comment(s): Father had heart disease and of this at the age of 73 yrs. Mother Family Medical History: Blood Disorder, Hypertension Additional Family Medical History / Comment(s): Von Willebrand disease. Mother at the age of 88 or 89yrs. Brother(s) Family Medical History: Blood Disorder Additional Family Medical History / Comment(s): Brother of Von Willebrand. Medications and Allergies Home Medications Medication Instructions Recorded Confirmed Type Atorvastatin Calcium [Lipitor] 10 mg PO HS 07/12/18 10/04/18 History Levothyroxine Sodium [Synthroid] 150 mcg PO MOTUWETH 07/12/18 10/04/18 History Levothyroxine Sodium [Synthroid] 225 mcg PO SUFRSA 07/12/18 10/04/18 History Losartan [Cozaar] 25 mg PO DAILY 07/12/18 10/04/18 History amLODIPine [Norvasc] 10 mg PO DAILY 07/12/18 10/04/18 History Cholecalciferol (Vitamin D3) 2,000 unit PO DAILY 07/18/18 10/04/18 History [Vitamin D3] Multivitamins, Thera [Multivitamin 1 tab PO DAILY 07/18/18 10/04/18 History (formulary)] Furosemide [Lasix] 20 mg PO DAILY 10/04/18 10/04/18 History Allergies Allergy/AdvReac Type Severity Reaction Status Date / Time aspirin AdvReac Unknown Verified 10/04/18 11:24 hydrochlorothiazide AdvReac Unknown Verified 10/04/18 11:25 Physical Exam Vitals: Vital Signs Temp Pulse Pulse Resp BP BP Pulse Ox 10/05/18 08:30 98.1 F 72 18 119/56 99 10/05/18 04:00 97.9 F 67 17 106/57 95 10/05/18 00:00 98.3 F 72 18 132/69 95 08/26/19 20:26 17 10/04/18 20:00 98.8 F 80 18 140/93 94 L 10/04/18 19:00 81 18 141/89 99 10/04/18 16:00 98.0 F 72 18 126/70 99 Intake and Output 10/04/18 10/05/18 10/05/18 22:59 06:59 14:59 Intake Total 222 Output Total 100 600 Balance -100 -600 222 Intake: Oral 222 Output: Urine 100 600 Other: Voiding Method Toilet Toilet # Voids 5 Weight 92.1 kg 91.5 kg 91.5 kg General appearance: The patient is alert, oriented, in no acute distress. HET: Head is normocephalic and atraumatic. Pupils are equal and reactive. Oropharynx is clear without lesions. Neck: Supple without lymphadenopathy. Trachea midline. Heart: S1 S2. Regular rate and rhythm. Lungs: No crackles or wheezes are heard. Abdomen: Soft, nontender, mildly bloated ascites present with bowel sounds. No peritoneal signs. No palpable organomegaly or masses. Extremities: +2/+3 bilateral lower extremity edema. Neurological: No focal deficits. Strength and sensation are grossly intact. Results CBC & Chem 7: 10/05/18 12:16 10/05/18 12:16 Labs: Abnormal Lab Results - Last 24 Hours (Table) 10/04/18 10/04/18 10/05/18 Range/Units 07:00 21:25 12:16 RDW 15.7 H (11.5-15.5) % BUN (7-17) mg/dL Creatinine (0.52-1.04) mg/dL Glucose (74-99) mg/dL Total Bilirubin (0.2-1.3) mg/dL GGT 176 H (12-43) U/L AST (14-36) U/L Alkaline Phosphatase (38-126) U/L Ur Leukocyte Esterase Small H (Negative) Urine WBC Clumps Rare H (None) /hpf Urine Bacteria Moderate H (None) /hpf Hyaline Casts 69 H (0-2) /lpf Urine Mucus Rare H (None) /hpf 10/05/18 Range/Units 12:16 RDW (11.5-15.5) % BUN 27 H (7-17) mg/dL Creatinine 1.55 H (0.52-1.04) mg/dL Glucose 102 H (74-99) mg/dL Total Bilirubin 1.6 H (0.2-1.3) mg/dL GGT (12-43) U/L AST 80 H (14-36) U/L Alkaline Phosphatase 159 H (38-126) U/L Ur Leukocyte Esterase (Negative) Urine WBC Clumps (None) /hpf Urine Bacteria (None) /hpf Hyaline Casts (0-2) /lpf Urine Mucus (None) /hpf CT scan - abdomen: report reviewed (Dr. Layton) US - abdomen: report reviewed (Dr. Layton) Assessment and Plan (1) Cirrhosis Narrative/Plan: 82-year-old female history von Willebrand disease admitted with exertional dyspnea increased lower extremity edema abdominal distention acute kidney injury with radiographic imaging consistent with a cirrhotic liver ascites gallstones mild transaminitis hyperbilirubinemia etiology unclear possible nonalcoholic steatohepatitis progressed to cirrhosis underlying intrinsic liver disease autoimmune pathology cannot be excluded. LFTs slightly elevated total bilirubin 1.6. AST 80. ALT 34. AP 159 Current Visit: Yes Status: Acute Code(s): K74.60 - UNSPECIFIED CIRRHOSIS OF LIVER SNOMED Code(s): 73385936 (2) Ascites Current Visit: Yes Status: Acute Code(s): R18.8 - OTHER ASCITES SNOMED Code(s): 078866541 (3) Von Willebrand disease Current Visit: Yes Status: Chronic Code(s): D68.0 - VON WILLEBRAND'S DISEASE SNOMED Code(s): 567733044 Plan: 1. Serologic workup for chronic liver disease initiated. Diagnostic paracent esis was advised we'll schedule interventional radiology sent fluid for cytology and analysis. Continue with diuretics presently receiving Lasix 40 g IV twice daily which is improving her symptomatology. We'll follow closely with you. Thank you for this kind referral and the opportunity to participate in the care of your patient. This consultation was discussed with Dr. Layton. The impression and plan of care have been directed as dictated.
--- NOTE | 2018-10-05 18:21 | CONS ---
CONSULTATION REASON FOR CONSULT: Renal failure. HISTORY OF PRESENT ILLNESS: The patient is an 82-year-old female who was admitted to the hospital yesterday with complaints of increased shortness of breath and lower extremity edema. The patient noticed that she has been progressively gaining weight and has developed increased abdominal distention and swelling in her legs. She was also more short of breath. The patient states that PCP had started Lasix as outpatient, but there was no significant improvement. The patient denies any previous history of kidney diseases. Her creatinine was 1.8 on admission. It is down to 1.5 now. Previous creatinine noted to be 1.0 in March of 2018 and 0.7 in July of 2017. Currently, patient is maintained on Lasix 40 mg IV q.12 hours. The patient denies use of any nonsteroidal anti-inflammatory agents prior to admission. She was maintained on Cozaar at home. Blood pressures have been on the lower side with systolic about 106-119 mmHg. PAST MEDICAL HISTORY: Hypertension, hyperlipidemia, history of IA and coronary artery disease, osteoarthritis, hypothyroidism, history of breast cancer. PAST SURGICAL HISTORY: Bilateral mastectomy, melanoma resection. SOCIAL HISTORY: Negative for smoking, drug abuse or alcohol abuse. MEDICATIONS: Medications at home prior to admission include Lipitor, Synthroid, Cozaar, Norvasc, vitamin D3, multivitamins, Lasix. ALLERGIES: Include aspirin and hydrochlorothiazide. REVIEW OF SYSTEMS: As per HPI. Other systems negative. PHYSICAL EXAMINATION: Patient is comfortable, awake, alert, oriented x3. She is not in any acute distress. Blood pressure is 118/72, heart rate 85 per minute. Patient is afebrile. Examination of the heart S1, S2. Examination of the lungs, bilateral breath sounds are heard. Abdomen is soft, nontender. Exam of lower extremities shows edema 2+ bilaterally. Abdomen is distended and nontender. DISABILITY HEARING OFFICER exam grossly intact. LABS: Show sodium 137, potassium 4.2, BUN 27, serum creatinine 1.5, hemoglobin 12.4 g/dL. UA is completely benign. ASSESSMENT: 1. Acute kidney injury, mostly cardiorenal, currently improving. Continue with current dose of diuretics. Hold off on the Cozaar as blood pressure is currently on the lower side. 2. Congestive heart failure, acute, mainly diastolic. EF 55-60 percent on echocardiogram. 3. Mild to moderate mitral regurgitation. 4. Some possible underlying liver disease. The patient has been evaluated by Gastroenterology. There is consideration for possible nonalcoholic steatohepatitis. 5. Von Willebrand's disease. PLAN: Continue with current dose of Lasix. Repeat labs in a.m. Patient will need outpatient followup. Follow up on the diagnostic paracentesis. Thank you for this consultation. We will continue to follow the patient with you during her hospitalization. MMODL / IJN: [id number] /
[2018-10-05 18:40] LABS: Iron Saturation 25.12 (12.00-45.00)
[2018-10-05 18:48] LABS: Protein, Total 6.6 g/dL (5.7-8.2)
[2018-10-05 19:06] LABS: Alpha Fetoprotein, Tumor Mkr 5.1 ng/mL (0.0-7.9)
[2018-10-05] MEDS: ATORVASTATIN 10 MG TAB PO SCH (20:37)
[2018-10-06] MEDS: LEVOTHYROXINE 75 MCG TAB PO SCH (06:15)
[2018-10-06 06:58] LABS: Basophils % (A) 0 %; Eosinophils # (A) 0.2 k/uL (0-0.7); Eosinophils % (A) 2 %; HCT 40.2 % (34.0-46.0); HGB 12.9 gm/dL (11.4-16.0); Lymphocytes # (A) 3.5 k/uL (1.0-4.8); Lymphocytes % (A) 32 %; MCH 32.3 pg (25.0-35.0); MCHC 32.2 g/dL (31.0-37.0); MCV 100.6 fL (80.0-100.0); Macrocytosis Slight; Mean Platelet Volume 9.7; Monocytes # (A) 0.6 k/uL (0-1.0); Monocytes % (A) 6 %; Neutrophils # (A) 6.4 k/uL (1.3-7.7); Neutrophils % (A) 58 %; Platelet Count 211 k/uL (150-450); RBC 3.99 m/uL (3.80-5.40); RDW 14.4 % (11.5-15.5); WBC 11.1 k/uL (3.8-10.6)
[2018-10-06 07:08] LABS: Albumin 3.7 g/dL (3.5-5.0); Calcium 9.7 mg/dL (8.4-10.2); Potassium 3.6 mmol/L (3.5-5.1); Total Bilirubin 1.3 mg/dL (0.2-1.3); Total Protein 7.2 g/dL (6.3-8.2)
[2018-10-06] MEDS: HEPARIN SODIUM,PORCINE 5,000 UNIT/ML 1 ML VIAL SQ SCH ×2 (09:31→19:43)
[2018-10-06] MEDS: CHOLECALCIFEROL 1,000 UNIT TAB PO SCH (10:35)
[2018-10-06] MEDS: MULTIVITAMINS, THERA 1 EACH TAB PO SCH (10:36)
[2018-10-06] MEDS: amLODIPine 10 MG TAB PO SCH (10:36)
[2018-10-06 10:44] LABS: Albumin 3.45 g/dL (3.80-4.90); Gamma Globulin 1.24 g/dL (0.70-1.50)
[2018-10-06 11:47] LABS: Liver/Kidney Microsome Antibod 1.1 UNITS (<=20)
--- NOTE | 2018-10-06 12:06 | P.PN ---
Subjective Progress Note Date: 10/06/18 Patient seen and examined follow-up resting comfortably in bed, reports that she still feels significantly better. Reports her abdominal distention is significantly improved on diuretics, reports that her breathing is now back to baseline without any shortness of air. Also reports that her lower extremity swelling is improved. Right upper quadrant ultrasound indicating moderate to severe ascites, gallstones noted with slightly thickened gallbladder wall. Patient reports to have had 4. 2 liters of ascitic fluid from her paracentesis labs are pending patient doing well no acute events overnight Objective - Vital Signs Vital signs: Vital Signs Temp 97.6 F 10/06/18 04:00 Pulse 71 10/06/18 10:33 Resp 18 10/06/18 10:33 BP 134/63 10/06/18 10:33 Pulse Ox 97 10/06/18 10:33 Intake & Output 10/05/18 10/06/18 10/06/18 18:59 06:59 18:59 Intake Total 666 240 Output Total 750 400 Balance -84 -400 240 Weight 91.5 kg 90.9 kg Intake: Oral 666 240 Output: Urine 750 400 Other: Voiding Method Toilet # Voids 1 # Bowel Movements 2 - Exam Constitutional: No acute distress, conversant, pleasant Eyes: Anicteric sclerae, moist conjunctiva, no lid-lag, PERRLA ENMT: NC/AT,Oropharynx clear, no erythema, exudates Neck:Supple, FROM, no masses, or JVD, No carotid bruits; No thyromegaly Lungs: Clear to auscultation, Clear to percussion, Normal respiratory effort, no accessory muscle use Cardiovascular: Heart regular in rate and rhythm, No murmurs, gallops, or rubs, 2 + pitting bipedal peripheral edema Abdominal: Soft Nontender, nondistended, no guarding, no rebound or rigidity, Normoactive bowel sounds No hepatomegaly, No splenomegaly, No palpable mass No abdominal wall hernia noted Skin: Normal temperature, tone, texture, turgor, No induration No subcutaneous nodules, No rash, lesions, No ulcers Extremities:No digital cyanosis No clubbing, Pedal pulses intact and symmetrical Radial pulses intact and symmetrical Normal gait and station, No calf tenderness Psychiatric: Alert and oriented to person, place and time, Appropriate affect Intact judgement Neuro: Muscles Strength 5/5 in all 4 extremities, Sensation to light touch grossly present throughout, Cranial nerves II-XII grossly intact. No focal sensory deficits - Labs CBC & Chem 7: 10/06/18 06:46 10/06/18 06:46 Labs: Abnormal Lab Results - Last 24 Hours (Table) 10/05/18 10/05/18 10/05/18 Range/Units 12:16 12:16 12:16 WBC (3.8-10.6) k/uL MCV (80.0-100.0) fL RDW 15.7 H (11.5-15.5) % BUN 27 H (7-17) mg/dL Creatinine 1.55 H (0.52-1.04) mg/dL Glucose 102 H (74-99) mg/dL TIBC 215 L (228-460) ug/dL Ferritin 353.7 H (10.0-291.0) ng/mL Total Bilirubin 1.6 H (0.2-1.3) mg/dL AST 80 H (14-36) U/L Alkaline Phosphatase 159 H (38-126) U/L Albumin (PEP) 3.45 L (3.80-4.90) g/dL 10/06/18 10/06/18 Range/Units 06:46 06:46 WBC 11.1 H (3.8-10.6) k/uL MCV 100.6 H (80.0-100.0) fL RDW (11.5-15.5) % BUN 27 H (7-17) mg/dL Creatinine 1.58 H (0.52-1.04) mg/dL Glucose (74-99) mg/dL TIBC (228-460) ug/dL Ferritin (10.0-291.0) ng/mL Total Bilirubin (0.2-1.3) mg/dL AST 71 H (14-36) U/L Alkaline Phosphatase 159 H (38-126) U/L Albumin (PEP) (3.80-4.90) g/dL Assessment and Plan (1) Cirrhosis of liver with ascites Narrative/Plan: * Likely secondary to HODGES * Symptomatically patient feeling better abdomen no longer distended after diagnostic paracentesis , Follow up with ascitic fluid results * Computed tomography scan suggesting underlying liver cirrhosis * Appreciate GI recommendations, labs ordered * Continue diuretics will switch from IV to Lasix 40 mg by mouth twice a day and Aldactone 25 mg by mouth daily Current Visit: Yes Status: Acute Code(s): K74.60 - UNSPECIFIED CIRRHOSIS OF LIVER; R18.8 - OTHER ASCITES SNOMED Code(s): 03878851 (2) Exertional dyspnea Narrative/Plan: * Now resolved with receiving diuretics * Likely secondary to volume overload due to underlying liver cirrhosis versus possible CHF * Abdominal ultrasound confirming moderate to severe ascites Current Visit: Yes Status: Acute Code(s): R06.09 - OTHER FORMS OF DYSPNEA SNOMED Code(s): 95230838 (3) Acute kidney injury Narrative/Plan: * Likely prerenal secondary to volume overload continue diuretics * Appreciate nephrology recommendations * A follow-up today's labs Current Visit: Yes Status: Acute Code(s): N17.9 - ACUTE KIDNEY FAILURE, UNSPECIFIED SNOMED Code(s): 71039910 (4) Peripheral edema Narrative/Plan: * Elevated BNP but echocardiogram showing normal preserved ejection fraction with mild to moderate MR and normal diastolic filling pressures * Multifactorial secondary to underlying liver cirrhosis ( previously on amlodipine medications * Likely secondary to * Continue with diuretics Current Visit: Yes Status: Acute Code(s): R60.9 - EDEMA, UNSPECIFIED SNOMED Code(s): 095048298 (5) Essential hypertension Narrative/Plan: * We'll change her antihypertensive regimen discontinue Cozaar and Norvasc * Initiate Lasix and Aldactone Current Visit: Yes Status: Acute Code(s): I10 - ESSENTIAL (PRIMARY) HYPERTENSION SNOMED Code(s): 08660391 (6) Elevated brain natriuretic peptide (BNP) level Current Visit: Yes Status: Acute Code(s): R79.89 - OTHER SPECIFIED ABNORMAL FINDINGS OF BLOOD CHEMISTRY SNOMED Code(s): 419491113 Plan: * Follow up ascitic fluid results * Anticipated discharge 1-2 days
--- NOTE | 2018-10-06 12:20 | US ---
Therapeutic paracentesis. DATE OF EXAM: 10/06/2018 CLINICAL HISTORY: Ascites The procedure was discussed with the patient. The risks, complications, benefits, and alternatives we re discussed and any questions were answered. Informed consent was obtained. The patient was placed s upine on the ultrasound table and prepped and draped in the usual sterile fashion. All elements of maximal barrier technique were utilized. Under ultrasound guidance, access into the right lower quadrant was obtained, via the paracentesis catheter system and direct ultrasound guidanc e. Approximately 4.25 liters of straw-colored fluid was removed. The patient was stable throughout the p rocedure and remained stable upon discharge from Department of Radiology. IMPRESSION: Successful therapeutic paracentesis under ultrasound guidance.
--- NOTE | 2018-10-06 12:32 | P.PN ---
Subjective Progress Note Date: 10/06/18 Principal diagnosis: cirrhosis ascites s/p diagnostic therapeutic paracentesis 4L removed. Patient feels much better. Serologic workup for CLD processing so far unremarkable. Creatinine stable 1.5. Objective - Vital Signs Vital signs: Vital Signs Temp 97.6 F 10/06/18 04:00 Pulse 71 10/06/18 10:33 Resp 18 10/06/18 10:33 BP 134/63 10/06/18 10:33 Pulse Ox 97 10/06/18 10:33 Intake & Output 10/05/18 10/06/18 10/06/18 18:59 06:59 18:59 Intake Total 666 240 Output Total 750 400 Balance -84 -400 240 Weight 91.5 kg 90.9 kg Intake: Oral 666 240 Output: Urine 750 400 Other: Voiding Method Toilet # Voids 1 # Bowel Movements 2 - Exam General appearance: The patient is alert, oriented, in no acute distress. HET: Head is normocephalic and atraumatic. Pupils are equal and reactive. Oropharynx is clear without lesions. Neck: Supple without lymphadenopathy. Trachea midline. Heart: S1 S2. Regular rate and rhythm. Lungs: No crackles or wheezes are heard. Abdomen: Soft, nontender, nondistended with bowel sounds. No peritoneal signs. No palpable organomegaly or masses. Extremities: +2BLE edema Neurological: No focal deficits. Strength and sensation are grossly intact. - Labs CBC & Chem 7: 10/06/18 06:46 10/06/18 06:46 Labs: Abnormal Lab Results - Last 24 Hours (Table) 10/05/18 10/05/18 10/05/18 Range/Units 12:16 12:16 12:16 WBC (3.8-10.6) k/uL MCV (80.0-100.0) fL RDW 15.7 H (11.5-15.5) % BUN 27 H (7-17) mg/dL Creatinine 1.55 H (0.52-1.04) mg/dL Glucose 102 H (74-99) mg/dL TIBC 215 L (228-460) ug/dL Ferritin 353.7 H (10.0-291.0) ng/mL Total Bilirubin 1.6 H (0.2-1.3) mg/dL AST 80 H (14-36) U/L Alkaline Phosphatase 159 H (38-126) U/L 10/06/18 10/06/18 Range/Units 06:46 06:46 WBC 11.1 H (3.8-10.6) k/uL MCV 100.6 H (80.0-100.0) fL RDW (11.5-15.5) % BUN 27 H (7-17) mg/dL Creatinine 1.58 H (0.52-1.04) mg/dL Glucose (74-99) mg/dL TIBC (228-460) ug/dL Ferritin (10.0-291.0) ng/mL Total Bilirubin (0.2-1.3) mg/dL AST 71 H (14-36) U/L Alkaline Phosphatase 159 H (38-126) U/L Assessment and Plan (1) Cirrhosis Narrative/Plan: 82-year-old female history von Willebrand disease admitted with exertional dyspnea increased lower extremity edema abdominal distention acute kidney injury with radiographic imaging consistent with a cirrhotic liver ascites gallstones mild transaminitis hyperbilirubinemia etiology unclear possible nonalcoholic steatohepatitis progressed to cirrhosis underlying intrinsic liver disease autoimmune pathology cannot be excluded. Current Visit: Yes Status: Acute Code(s): K74.60 - UNSPECIFIED CIRRHOSIS OF LIVER SNOMED Code(s): 33460377 (2) Ascites Current Visit: Yes Status: Acute Code(s): R18.8 - OTHER ASCITES SNOMED Code(s): 555532396 (3) Von Willebrand disease Current Visit: Yes Status: Chronic Code(s): D68.0 - VON WILLEBRAND'S DISEASE SNOMED Code(s): 206542982 Plan: 1. S/P paracentesis cytology pending. Continue w/ diuretics per nephrology recommendations. Low salt diet. DC per nephrology/medicine. RTC 2 weeks for reevaluation. Assessment and plan of care d/w Dr. Layton
[2018-10-06 14:15] LABS: Appearance,BF Clear; Color,BF Yellow; Nucleated Cells, Body Fluid 210 /uL; RBC, Body Fluid 160 /uL
[2018-10-06 14:17] LABS: Mononuclear WBC,Body Fluid 79 %; Polynuclear WBC,Body Fluid 21 %; Total Cells Counted,Body Fluid 100
[2018-10-06] MEDS: FUROSEMIDE 40 MG TAB PO SCH (16:08)
--- NOTE | 2018-10-06 18:16 | PN ---
PROGRESS NOTE Patient is seen for followup for acute kidney injury. Her renal function has been improving since admission, with serum creatinine down from about 1.8 mg/dL to 1.5 now. The patient was admitted with volume overload, increased lower extremity edema, and she has been maintained on diuretics. She was receiving IV Lasix q.12 hours. She also had paracentesis done yesterday for about 4 L. The patient tolerated the procedure well. She has not had any episodes of hypotension. On examination this morning, blood pressure 131/69, heart rate 76 per minute. She is afebrile. EXAMINATION OF THE HEART: S1 and S2. EXAMINATION OF LUNGS: Bilateral breath sounds are heard. ABDOMEN: Soft, non-tender. Examination of lower extremities shows edema 1+ bilaterally. TECHNICAL SUPERVISOR exam is grossly intact. Labs show sodium 138, potassium 3.6, BUN 27, serum creatinine 1.58, hemoglobin of 12.9 g/dL. ASSESSMENT: 1. Acute kidney injury, mostly cardiorenal. Currently off of Cozaar, maintained on diuretics. IV Lasix has been switched to p.o., which is appropriate. She has had an improvement in volume status. The patient is not on any nephrotoxic medications. We will repeat labs in a.m. 2. Congestive heart failure, diastolic, ejection fraction 55% to 60%, currently improved. 3. Mild to moderate mitral regurgitation. 4. Liver cirrhosis, being followed by Gastroenterology, being worked up for etiology. 5. Von Willebrand's disease. 6. Portal hypertension and ascites, status post paracentesis done yesterday. PLAN: Continue with oral Lasix. Avoid hypotension. Repeat labs in a.m. No evidence of obstructive uropathy noted on ultrasound. Patient will need outpatient followup. MMODL / IJN: [id number] /
[2018-10-06] MEDS: ATORVASTATIN 10 MG TAB PO SCH (19:54)
[2018-10-06 19:58] VITALS: RESP 16
[2018-10-06 21:47] LABS: Albumin, Fluid Source Paracentesis Fluid
[2018-10-07] MEDS: LEVOTHYROXINE 75 MCG TAB PO SCH (05:35)
[2018-10-07 06:19] LABS: Basophils % (A) 0 %; Eosinophils # (A) 0.3 k/uL (0-0.7); Eosinophils % (A) 4 %; HCT 38.2 % (34.0-46.0); HGB 12.3 gm/dL (11.4-16.0); Lymphocytes % (A) 33 %; MCHC 32.2 g/dL (31.0-37.0); MCV 99.3 fL (80.0-100.0); Macrocytosis Slight; Mean Platelet Volume 9.9; Monocytes # (A) 0.6 k/uL (0-1.0); Monocytes % (A) 7 %; Neutrophils # (A) 4.8 k/uL (1.3-7.7); Neutrophils % (A) 53 %; Platelet Count 157 k/uL (150-450); RBC 3.85 m/uL (3.80-5.40); RDW 14.4 % (11.5-15.5); WBC 9.1 k/uL (3.8-10.6)
[2018-10-07 06:28] LABS: Albumin 3.1 g/dL (3.5-5.0); Potassium 3.6 mmol/L (3.5-5.1); Total Bilirubin 1.2 mg/dL (0.2-1.3); Total Protein 6.3 g/dL (6.3-8.2)
[2018-10-07] MEDS ORDERED: SPIRONOLACTONE 25 MG TAB PO SCH (09:00)
[2018-10-07] MEDS: HEPARIN SODIUM,PORCINE 5,000 UNIT/ML 1 ML VIAL SQ SCH (09:05)
[2018-10-07] MEDS: CHOLECALCIFEROL 1,000 UNIT TAB PO SCH (09:41)
[2018-10-07] MEDS: MULTIVITAMINS, THERA 1 EACH TAB PO SCH (09:41)
[2018-10-07] MEDS: FUROSEMIDE 40 MG TAB PO SCH (09:41)
[2018-10-07 10:16] VITALS: BP 120/59; PULSE 67; TEMP 97.8
--- NOTE | 2018-10-07 10:20 | P.DS ---
Providers Date of admission: 10/04/18 14:52 Expected date of discharge: 10/07/18 Attending physician: Kaleb Luz MD Consults: 10/04/18 14:52 Consult Physician Routine Consulting Provider: Teena Vidal Consult Reason/Comments: Acute kidney injury Do you want consulting provider notified?: Yes 10/04/18 15:21 Consult Physician Routine Consulting Provider: Pan Layton Consult Reason/Comments: liver cirrhosis Do you want consulting provider notified?: Yes Primary care physician: Lindsay Coy MD - Discharge Diagnosis(es) (1) Cirrhosis of liver with ascites Status: Acute (2) Exertional dyspnea Status: Acute (3) Acute kidney injury Status: Acute (4) Peripheral edema Status: Acute (5) Essential hypertension Status: Acute (6) Elevated brain natriuretic peptide (BNP) level Status: Acute Hospital Course: The patient is a 82-year-old obese female with a history of hypertension hyperlipidemia hypothyroidism that was admitted with exertional dyspnea peripheral edema and ascites and was found to have liver cirrhosis with ascites of unknown etiology possibly nonalcoholic steatohepatitis. The patient was placed on diuretics with IV Lasix and diuresed well and noted improvement of her abdominal distention and difficulty breathing and peripheral edema, Abdominal ultrasound was consistent with moderate to severe ascites gallstones noted with slightly thickened gallbladder wall. GI was consulted and workup for liver cirrhosis was initiated, interventional radiology was consulted and the patient had a diagnostic paracentesis with 4.2 L of ascitic fluid removed performed without any significant causative etiology identified. The patient presented with a creatinine of 1.8 that was thought to be cardiorenal and due to over diuresis with Lasix. Noted elevated NT proBNP 1500, echocardiogram performed showed a preserved LVEF of 55-60% without any diastolic dysfunction noted. with treatment the patient's symptoms resolved and she was subsequently discharged home in stable condition and told to follow-up with GI in 2 weeks in clinic. This discharge process took approximately 35 minutes. Focused exam Abdomen: Soft nontender nondistended, normoactive bowel sounds all 4 quadrants Cardiovascular: Regular rate and rhythm no murmurs rubs or gallops, +1.5 pitting peripheral edema Patient Condition at Discharge: Fair Plan - Discharge Summary Discharge Rx Participant: No New Discharge Prescriptions: New Spironolactone [Aldactone] 25 mg PO DAILY #30 tab Furosemide [Lasix] 40 mg PO BID@0900,1600 #60 tab Vitamin E (Dl,Tocopheryl Acet) [Vitamin E] 400 unit PO BID #60 capsule Continue Levothyroxine Sodium [Synthroid] 225 mcg PO SUFRSA Atorvastatin Calcium [Lipitor] 10 mg PO HS Levothyroxine Sodium [Synthroid] 150 mcg PO MOTUWETH Cholecalciferol (Vitamin D3) [Vitamin D3] 2,000 unit PO DAILY Multivitamins, Thera [Multivitamin (formulary)] 1 tab PO DAILY Discontinued amLODIPine [Norvasc] 10 mg PO DAILY Losartan [Cozaar] 25 mg PO DAILY Furosemide [Lasix] 20 mg PO DAILY Discharge Medication List Atorvastatin Calcium [Lipitor] 10 mg PO HS 07/12/18 [History] Levothyroxine Sodium [Synthroid] 150 mcg PO MOTUWETH 07/12/18 [History] Levothyroxine Sodium [Synthroid] 225 mcg PO SUFRSA 07/12/18 [History] Cholecalciferol (Vitamin D3) [Vitamin D3] 2,000 unit PO DAILY 07/18/18 [History] Multivitamins, Thera [Multivitamin (formulary)] 1 tab PO DAILY 07/18/18 [History] Furosemide [Lasix] 40 mg PO BID@0900,1600 #60 tab 10/06/18 [Rx] Spironolactone [Aldactone] 25 mg PO DAILY #30 tab 10/06/18 [Rx] Vitamin E (Dl,Tocopheryl Acet) [Vitamin E] 400 unit PO BID #60 capsule 10/07/18 [Rx] Follow up Appointment(s)/Referral(s): Lindsay Coy MD [Primary Care Provider] - 1-2 days (Office will contact for appointment) Pan Layton MD [STAFF PHYSICIAN] - 10/21/18 9:00 am Patient Instructions/Handouts: Pneumonia (DC), Paracentesis (DC) Discharge Disposition: HOME SELF-CARE
--- NOTE | 2018-10-07 20:56 | PN ---
PROGRESS NOTE Patient is seen for followup for acute kidney injury. She was admitted to the hospital with volume overload and increased lower extremity edema. Patient has been diuresed. She was also found to have ascites with evidence of liver cirrhosis. She has had paracentesis. Renal function has improved, with creatinine down to 1.35 from 1.8 on initial admission. Patient wants to go home today. On examination this morning, blood pressure 120/59, heart rate 67 per minute. She is afebrile. EXAMINATION OF THE HEART: S1 and S2. EXAMINATION OF LUNGS: Bilateral breath sounds are heard. ABDOMEN: Soft, non-tender. Examination of lower extremities shows edema 2+ bilaterally. CRAFT ARTIST exam is grossly intact. Labs show sodium 136, potassium 3.6, BUN 26, serum creatinine 1.35. UA was completely benign. ASSESSMENT: 1. Acute kidney injury, cardiorenal, currently improved. Patient is being diuresed. She was switched to oral diuretics yesterday. Currently doing well. 2. Liver cirrhosis, being followed by GI, status post paracentesis. 3. Hypothyroidism, maintained on supplementation. 4. Volume overload, currently improved. PLAN: The patient can be discharged on oral diuretics. Follow up as outpatient in about 1-2 weeks. MMODL / IJN: [id number] /
[2018-10-08] MEDS ORDERED: LEVOTHYROXINE 75 MCG TAB PO SCH (06:30)
== END 2018-10-07 13:07 | disposition home or self-care (01) | DRG 948 ==
LOC: EC 10:59 → 3SCARD 14:52
PROVIDERS: ADMIT Family Medicine; ATTEND Family Medicine
PROC: 0W9G3ZZ Drainage of Peritoneal Cavity, Percutaneous Approach (ICD-10-PCS; principal; 2018-10-06)
DX: R18.8 Other ascites (principal); N17.9 Acute kidney failure, unspecified; D68.0 Von Willebrand disease; K76.6 Portal hypertension; E66.01 Morbid (severe) obesity due to excess calories; I08.1 Rheumatic disorders of both mitral and tricuspid valves; K74.60 Unspecified cirrhosis of liver; K75.81 Nonalcoholic steatohepatitis (NASH); E03.9 Hypothyroidism, unspecified; E78.5 Hyperlipidemia, unspecified; F41.9 Anxiety disorder, unspecified; I25.10 Atherosclerotic heart disease of native coronary artery without angina pectoris; I25.2 Old myocardial infarction; J98.01 Acute bronchospasm; K80.20 Calculus of gallbladder without cholecystitis without obstruction; M19.90 Unspecified osteoarthritis, unspecified site; I10 Essential (primary) hypertension; T50.2X5A Adverse effect of carbonic-anhydrase inhibitors, benzothiadiazides and other diuretics, initial encounter; Z68.35 Body mass index [BMI] 35.0-35.9, adult; Z79.890 Hormone replacement therapy; Z79.899 Other long term (current) drug therapy; Z88.6 Allergy status to analgesic agent; Z88.8 Allergy status to other drugs, medicaments and biological substances; Z85.820 Personal history of malignant melanoma of skin; Z90.13 Acquired absence of bilateral breasts and nipples; Z85.3 Personal history of malignant neoplasm of breast; Z82.49 Family history of ischemic heart disease and other diseases of the circulatory system; Z83.2 Family history of diseases of the blood and blood-forming organs and certain disorders involving the immune mechanism
CPT/HCPCS: 36415; 49083; 71046; 76705; 76770; 80053; 80074; 81001; 82042; 82103; 82105; 82390; 82728; 82945; 82977; 83516; 83540; 83550; 83735; 83880; 84165; 84443; 84484; 85025; 85610; 85730; 86038; 86376; 87070; 87075; 87205; 88108; 88305; 88341; 88342; 89050; 93005; 93306; 94640; 96374; 99285

== ENCOUNTER → 2018-11-04 | Outpatient (CLI) | payer MEDICARE, BC ==
[2018-11-04 11:29] LABS: Basophils % (A) 0 %; Eosinophils # (A) 0.1 k/uL (0-0.7); Eosinophils % (A) 1 %; HCT 39.4 % (34.0-46.0); HGB 12.6 gm/dL (11.4-16.0); Lymphocytes # (A) 1.5 k/uL (1.0-4.8); Lymphocytes % (A) 17 %; MCHC 32.1 g/dL (31.0-37.0); MCV 99.6 fL (80.0-100.0); Macrocytosis Slight; Mean Platelet Volume 8.8; Monocytes # (A) 0.5 k/uL (0-1.0); Monocytes % (A) 6 %; Neutrophils # (A) 6.6 k/uL (1.3-7.7); Neutrophils % (A) 73 %; Platelet Count 241 k/uL (150-450); RBC 3.96 m/uL (3.80-5.40); RDW 15.2 % (11.5-15.5)
[2018-11-04 11:44] LABS: INR 1.2 (<1.2); Prothrombin Time 12.5 sec (9.0-12.0)
[2018-11-04 11:49] LABS: Appearance,Urine Clear (Clear); Bilirubin,Urine Negative (Negative); Blood,Urine Negative (Negative); Color,Urine Yellow; Glucose,Urine (UA) Negative (Negative); Ketones,Urine Negative (Negative); Leukocyte Esterase,Urine Negative (Negative); Nitrite,Urine Negative (Negative); PH, Urine 6.5 (5.0-8.0); Protein,Urine Negative (Negative); Specific Gravity,Urine 1.009 (1.001-1.035); Urobilinogen,Urine <2.0 mg/dL (<2.0)
[2018-11-04 17:15] LABS: Iron Saturation 29.52 (12.00-45.00)
[2018-11-04 17:23] LABS: Alpha Fetoprotein, Tumor Mkr 3.2 ng/mL (0.0-7.9); Vitamin D 25 Hydroxy 42.2 ng/mL (30.0-100.0)
[2018-11-04 17:34] LABS: African American GFR (CKD) 54.5 (60.0-200.0); Albumin 3.3 g/dL (3.80-4.90); Albumin/Globulin Ratio 1.14 (1.60-3.17); Anion Gap 9.6 mmol/L (4.00-12.00); BUN/Creat Ratio 16.36 Ratio (12.00-20.00); Calcium 9.2 mg/dL (8.7-10.3); Carbon Dioxide 28.4 mmol/L (21.6-31.8); Globulin 2.9 g/dL (1.6-3.3); Magnesium 1.7 mg/dL (1.5-2.4); Potassium 3.9 mmol/L (3.5-5.5); Total Bilirubin 1.6 mg/dL (0.3-1.2); Total Protein 6.2 g/dL (6.2-8.2); Uric Acid 8.4 mg/dL (2.9-7.7)
[2018-11-04 21:37] LABS: Creatinine,Urine Random 52.6 mg/dL
[2018-11-04 21:46] LABS: Total Protein,Urine Random 13.3 mg/dL (0.0-13.5)
== END | disposition home or self-care (01) ==
LOC: LABWHC1 10:42
PROVIDERS: ATTEND Nurse Practitioner
DX: K74.60 Unspecified cirrhosis of liver (principal); N17.9 Acute kidney failure, unspecified; R80.9 Proteinuria, unspecified
CPT/HCPCS: 36415; 80053; 81003; 82105; 82306; 82570; 82728; 83540; 83550; 83735; 83970; 84100; 84156; 84550; 85025; 85610

== ENCOUNTER → 2018-11-04 | Outpatient (CLI) | payer MEDICARE, BC ==
--- NOTE | 2018-11-04 13:32 | US ---
EXAMINATION TYPE: US abdomen limited DATE OF EXAM: 11/04/2018 COMPARISON: US CLINICAL HISTORY: K74.60 Unspecified cirrhosis of liver. EXAM MEASUREMENTS: Liver Length: 14.5 cm Gallbladder Wall: 0.4 cm CBD: 0.3 cm Right Kidney: 10.1 x 4.5 x 4.1cm Moderate volume ascites. Pancreas: Obscured by bowel gas Liver: atrophied right lobe, lobular, cirrhotic morphology Gallbladder: cholelithiasis Evidence for sonographic Dyson's sign: no CBD: wnl There is a cirrhotic morphology of the liver. The intrahepatic portion of the IVC and proximal abdomi nal aorta are within normal limits. Cholelithiasis is seen. Mild gallbladder wall thickening is seen likely related to the adjacent ascites as the common bile duct is within normal limits. The visualize d portions of the pancreas are homogenous. IMPRESSION: 1. Cirrhotic morphology of liver with recurrent ascites, overall moderate volume. No suspicious hepat ic mass is seen. 2. Cholelithiasis and mild gallbladder wall thickening, likely related to the adjacent ascites in hep atocellular disease.
== END | disposition home or self-care (01) ==
LOC: RADUSWWP 09:30
PROVIDERS: ATTEND Internal Medicine Gastroenterology
DX: K74.60 Unspecified cirrhosis of liver (principal); R18.8 Other ascites; K80.20 Calculus of gallbladder without cholecystitis without obstruction; K82.8 Other specified diseases of gallbladder
CPT/HCPCS: 76705

== ENCOUNTER 2018-11-25 11:42 | Day surgery (SDC) | payer MEDICARE, BC ==
[2018-11-25 12:26] LABS: Mean Platelet Volume 8.8; Platelet Count 246 k/uL (150-450)
[2018-11-25 12:38] VITALS: RESP 16; TEMP 98.1
[2018-11-25 12:57] LABS: INR 1.2 (<1.2); Prothrombin Time 12.2 sec (9.0-12.0)
[2018-11-25] MEDS: ALBUMIN HUMAN 25% 50 ML in EMPTY BAG 1 BAG IVPB SCH ×4 (13:17→14:04)
[2018-11-25 14:20] VITALS: BP 136/65; PULSE 80
--- NOTE | 2018-11-25 15:56 | US ---
Therapeutic paracentesis. DATE OF EXAM: 11/25/2018 CLINICAL HISTORY: Ascites The procedure was discussed with the patient. The risks, complications, benefits, and alternatives we re discussed and any questions were answered. Informed consent was obtained. The patient was placed s upine on the ultrasound table and prepped and draped in the usual sterile fashion. All elements of maximal barrier technique were utilized. Under ultrasound guidance, access into the right lower quadrant was obtained, via the paracentesis catheter system and direct ultrasound guidanc e. Approximately 8.1 liters of straw-colored fluid was removed. The patient was stable throughout the pr ocedure and remained stable upon discharge from Department of Radiology. IMPRESSION: Successful therapeutic paracentesis under ultrasound guidance.
== END 2018-11-25 14:50 | disposition home or self-care (01) ==
LOC: RADPROMAIN 11:42
PROVIDERS: ATTEND Internal Medicine Gastroenterology
DX: R18.8 Other ascites (principal)
CPT/HCPCS: 82565; 85049; 85610; 36415; 49083; P9047

== ENCOUNTER 2018-12-22 11:55 | Day surgery (SDC) | payer MEDICARE, BC ==
[2018-12-22 12:46] LABS: Mean Platelet Volume 7.5; Platelet Count 288 k/uL (150-450)
[2018-12-22 12:48] VITALS: RESP 18; TEMP 98.1
[2018-12-22] MEDS: ALBUMIN HUMAN 25% 50 ML in EMPTY BAG 1 BAG IVPB SCH ×4 (12:51→14:11)
[2018-12-22 12:55] LABS: INR 1.2 (<1.2); Prothrombin Time 12.1 sec (9.0-12.0)
[2018-12-22 15:36] VITALS: BP 139/68; PULSE 99
--- NOTE | 2018-12-23 08:29 | US ---
Therapeutic paracentesis. DATE OF EXAM: 12/22/2018 CLINICAL HISTORY: Ascites The procedure was discussed with the patient. The risks, complications, benefits, and alternatives we re discussed and any questions were answered. Informed consent was obtained. The patient was placed s upine on the ultrasound table and prepped and draped in the usual sterile fashion. All elements of maximal barrier technique were utilized. Under ultrasound guidance, access into the right lower quadrant was obtained, via the paracentesis catheter system and direct ultrasound guidanc e. Approximately 8.9 liters of straw-colored fluid was removed. The patient was stable throughout the pr ocedure and remained stable upon discharge from Department of Radiology. IMPRESSION: Successful therapeutic paracentesis under ultrasound guidance.
== END 2018-12-22 15:10 | disposition home or self-care (01) ==
LOC: RADPROMAIN 11:55
PROVIDERS: ATTEND Nurse Practitioner
DX: R18.8 Other ascites (principal)
CPT/HCPCS: 82565; 85049; 85610; 36415; 49083; P9047

== ENCOUNTER 2019-01-05 11:29 | Day surgery (SDC) | payer MEDICARE, BC ==
[2019-01-05 12:17] VITALS: RESP 20; TEMP 97.9
[2019-01-05 12:39] LABS: Mean Platelet Volume 7.6; Platelet Count 245 k/uL (150-450)
[2019-01-05 12:54] LABS: INR 1.2 (<1.2); Prothrombin Time 12.1 sec (9.0-12.0)
[2019-01-05] MEDS: ALBUMIN HUMAN 25% 50 ML in EMPTY BAG 1 BAG IVPB SCH ×4 (13:49→14:45)
[2019-01-05 15:26] VITALS: BP 121/70; PULSE 70
--- NOTE | 2019-01-05 15:38 | US ---
EXAMINATION TYPE: US paracentesis abd w/image DATE OF EXAM: 01/05/2019 COMPARISON: NONE HISTORY: Ascites. PROCEDURE: Maximal barrier technique was utilized. The skin overlying a suitable pocket of fluid was localized with ultrasound and the overlying skin was prepped and draped. Ultrasound was utilized with sterile technique. Lidocaine was used for local anesthesia and a skin helen made with a scalpel. Catheter was advanced under direct ultrasound guidance into a suitable pocket of fluid and approximately 9 liters of serous fluid were removed. Catheter was withdrawn and hemostasis achieved. There is no immediate complication; the patient is discharged in stable condition. IMPRESSION: STATUS POST ULTRASOUND GUIDED PARACENTESIS FOR PALLIATION OF ASCITES. THIS PROCEDURE WA S PERFORMED BY THE UNDERSIGNED.
== END 2019-01-05 15:20 | disposition home or self-care (01) ==
LOC: RADPROMAIN 11:29
PROVIDERS: ATTEND Internal Medicine Gastroenterology
DX: R18.8 Other ascites (principal)
CPT/HCPCS: 82565; 85049; 85610; 36415; 49083; P9047

== ENCOUNTER 2019-01-19 11:41 | Day surgery (SDC) | payer MEDICARE, BC ==
[2019-01-19 12:54] LABS: Mean Platelet Volume 9.6; Platelet Count 219 k/uL (150-450)
[2019-01-19 12:58] LABS: INR 1.2 (<1.2); Prothrombin Time 12.7 sec (9.0-12.0)
[2019-01-19 13:00] VITALS: TEMP 97.5
[2019-01-19] MEDS: ALBUMIN HUMAN 25% 50 ML in EMPTY BAG 1 BAG IVPB SCH ×4 (13:32→14:39)
[2019-01-19 14:02] VITALS: BP 136/74; PULSE 75; RESP 18
--- NOTE | 2019-01-20 08:06 | US ---
EXAMINATION TYPE: US paracentesis abd w/image DATE OF EXAM: 01/19/2019 COMPARISON: NONE HISTORY: Ascites. PROCEDURE: Maximal barrier technique was utilized. The skin overlying a suitable pocket of fluid was localized with ultrasound and the overlying skin was prepped and draped. Ultrasound was utilized with sterile technique. Lidocaine was used for local anesthesia and a skin helen made with a scalpel. Catheter was advanced under direct ultrasound guidance into a suitable pocket of fluid and approximately 8.4 liter s of serous fluid were removed. Catheter was withdrawn and hemostasis achieved. There is no immedia te complication; the patient is discharged in stable condition. IMPRESSION: STATUS POST ULTRASOUND GUIDED PARACENTESIS FOR PALLIATION OF ASCITES. THIS PROCEDURE WA S PERFORMED BY THE UNDERSIGNED.
== END 2019-01-19 15:25 | disposition home or self-care (01) ==
LOC: RADPROMAIN 11:41
PROVIDERS: ATTEND Internal Medicine Gastroenterology
DX: R18.8 Other ascites (principal)
CPT/HCPCS: 82565; 85049; 85610; 36415; 49083; P9047

== ENCOUNTER 2019-01-31 11:55 | Day surgery (SDC) | payer MEDICARE, BC ==
[2019-01-31 12:40] LABS: Mean Platelet Volume 9.8; Platelet Count 255 k/uL (150-450)
[2019-01-31 12:52] VITALS: RESP 18
[2019-01-31 13:03] LABS: INR 1.2 (<1.2); Prothrombin Time 12.1 sec (9.0-12.0)
[2019-01-31 14:07] VITALS: TEMP 98.4
[2019-01-31] MEDS: ALBUMIN HUMAN 25% 50 ML in EMPTY BAG 1 BAG IVPB SCH ×3 (14:54→15:25)
[2019-01-31 15:32] VITALS: BP 132/64; PULSE 83
--- NOTE | 2019-02-01 08:13 | US ---
EXAMINATION TYPE: US paracentesis abd w/image DATE OF EXAM: 01/31/2019 COMPARISON: NONE HISTORY: Ascites. PROCEDURE: Maximal barrier technique was utilized. The skin overlying a suitable pocket of fluid was localized with ultrasound and the overlying skin was prepped and draped. Ultrasound was utilized with sterile technique. Lidocaine was used for local anesthesia and a skin helen made with a scalpel. Catheter was advanced under direct ultrasound guidance into a suitable pocket of fluid and approximately 8.7 liter s of serous fluid were removed. Catheter was withdrawn and hemostasis achieved. There is no immedia te complication; the patient is discharged in stable condition. IMPRESSION: STATUS POST ULTRASOUND GUIDED PARACENTESIS FOR PALLIATION OF ASCITES. THIS PROCEDURE WA S PERFORMED BY THE UNDERSIGNED.
== END 2019-01-31 15:50 | disposition home or self-care (01) ==
LOC: RADPROMAIN 11:55
PROVIDERS: ATTEND Nurse Practitioner
DX: R18.8 Other ascites (principal)
CPT/HCPCS: 82565; 85049; 85610; 49083; P9047

== ENCOUNTER 2019-02-11 11:32 | Day surgery (SDC) | payer MEDICARE, BC ==
[2019-02-15] MEDS ORDERED: ALBUMIN HUMAN 25% 50 ML in EMPTY BAG 1 BAG IVPB SCH (12:45)
== END 2019-02-11 14:00 | disposition home or self-care (01) ==
LOC: RADPROMAIN 11:32
PROVIDERS: ATTEND Internal Medicine Gastroenterology
DX: R18.8 Other ascites (principal); Z53.8 Procedure and treatment not carried out for other reasons

== ENCOUNTER 2019-02-15 11:55 | Day surgery (SDC) | payer MEDICARE, BC ==
[2019-02-15 13:19] VITALS: RESP 20; TEMP 97.7
[2019-02-15 13:33] LABS: Mean Platelet Volume 10.1; Platelet Count 293 k/uL (150-450)
[2019-02-15 13:59] LABS: INR 1.1 (<1.2); Prothrombin Time 11.8 sec (9.0-12.0)
[2019-02-15] MEDS: ALBUMIN HUMAN 25% 50 ML in EMPTY BAG 1 BAG IVPB SCH ×4 (14:24→15:12)
[2019-02-15 15:05] VITALS: PULSE 78
[2019-02-15 15:54] VITALS: BP 118/72
--- NOTE | 2019-02-16 09:19 | US ---
Therapeutic paracentesis. DATE OF EXAM: 02/15/2019 CLINICAL HISTORY: Ascites The procedure was discussed with the patient. The risks, complications, benefits, and alternatives we re discussed and any questions were answered. Informed consent was obtained. The patient was placed s upine on the ultrasound table and prepped and draped in the usual sterile fashion. All elements of maximal barrier technique were utilized. Under ultrasound guidance, access into the right lower quadrant was obtained, via the paracentesis catheter system and direct ultrasound guidanc e. Approximately 9.1 liters of straw-colored fluid was removed. The patient was stable throughout the pr ocedure and remained stable upon discharge from Department of Radiology. IMPRESSION: Successful therapeutic paracentesis under ultrasound guidance.
== END 2019-02-15 16:05 | disposition home or self-care (01) ==
LOC: RADPROMAIN 11:55
PROVIDERS: ATTEND Internal Medicine Gastroenterology
DX: R18.8 Other ascites (principal)
CPT/HCPCS: 82565; 85049; 85610; 36415; 49083; P9047

== ENCOUNTER 2019-03-04 11:49 | Day surgery (SDC) | payer MEDICARE, BC ==
[2019-03-04 13:13] LABS: Mean Platelet Volume 9.5; Platelet Count 202 k/uL (150-450)
[2019-03-04 13:17] LABS: INR 1.2 (<1.2); Prothrombin Time 12.2 sec (9.0-12.0)
[2019-03-04 13:29] VITALS: RESP 16; TEMP 97.7
[2019-03-04] MEDS: ALBUMIN HUMAN 25% 50 ML in EMPTY BAG 1 BAG IVPB SCH ×4 (14:13→15:00)
[2019-03-04 14:40] VITALS: BP 128/70; PULSE 71
--- NOTE | 2019-03-08 18:51 | US ---
Therapeutic paracentesis. DATE OF EXAM: 03/04/2019 CLINICAL HISTORY: Ascites The procedure was discussed with the patient. The risks, complications, benefits, and alternatives we re discussed and any questions were answered. Informed consent was obtained. The patient was placed s upine on the ultrasound table and prepped and draped in the usual sterile fashion. All elements of maximal barrier technique were utilized. Under ultrasound guidance, access into the right lower quadrant was obtained, via the paracentesis catheter system and direct ultrasound guidanc e. Approximately 10.2 liters of straw-colored fluid was removed. The patient was stable throughout the p rocedure and remained stable upon discharge from Department of Radiology. IMPRESSION: Successful therapeutic paracentesis under ultrasound guidance.
== END 2019-03-04 15:45 | disposition home or self-care (01) ==
LOC: RADPROMAIN 11:49
PROVIDERS: ATTEND Internal Medicine Gastroenterology
DX: R18.8 Other ascites (principal)
CPT/HCPCS: 82565; 85049; 85610; 36415; 49083; P9047

== ENCOUNTER 2019-03-18 11:00 | Day surgery (SDC) | payer MEDICARE, BC ==
[2019-03-18 12:14] LABS: Mean Platelet Volume 9.3; Platelet Count 223 k/uL (150-450)
[2019-03-18 12:35] LABS: INR 1.1 (<1.2); Prothrombin Time 11.7 sec (9.0-12.0)
[2019-03-18 12:54] VITALS: TEMP 97.5
[2019-03-18] MEDS: ALBUMIN HUMAN 25% 50 ML in EMPTY BAG 1 BAG IVPB SCH ×4 (13:48→14:38)
[2019-03-18 15:15] VITALS: BP 121/67; PULSE 79; RESP 18
--- NOTE | 2019-03-18 15:54 | US ---
EXAMINATION TYPE: US paracentesis abd w/image DATE OF EXAM: 03/18/2019 COMPARISON: NONE HISTORY: Ascites. PROCEDURE: Maximal barrier technique was utilized. The skin overlying a suitable pocket of fluid was localized with ultrasound and the overlying skin was prepped and draped. Ultrasound was utilized with sterile technique. Hand hygiene obtained with soap and water. Lidocaine was used for local anesthesia and a s kin helen made with a scalpel. Catheter was advanced under direct ultrasound guidance into a suitable pocket of fluid and approximately 10.2 liters of serous fluid were removed. Catheter was withdrawn a nd hemostasis achieved. There is no immediate complication; the patient is discharged in stable cond ition. IMPRESSION: STATUS POST ULTRASOUND GUIDED PARACENTESIS FOR PALLIATION OF ASCITES. THIS PROCEDURE WA S PERFORMED BY THE UNDERSIGNED.
== END 2019-03-18 15:35 | disposition home or self-care (01) ==
LOC: RADPROMAIN 11:00
PROVIDERS: ATTEND Internal Medicine Gastroenterology
DX: R18.8 Other ascites (principal)
CPT/HCPCS: 82565; 85049; 85610; 36415; 49083; P9047

== ENCOUNTER 2019-04-01 10:45 | Day surgery (SDC) | payer MEDICARE, BC ==
[2019-04-01 11:56] LABS: Mean Platelet Volume 9.9; Platelet Count 207 k/uL (150-450)
[2019-04-01 11:57] LABS: INR 1.2 (<1.2); Prothrombin Time 12.4 sec (9.0-12.0)
[2019-04-01 12:01] VITALS: TEMP 97.5
[2019-04-01] MEDS: ALBUMIN HUMAN 25% 50 ML in EMPTY BAG 1 BAG IVPB SCH ×4 (12:44→13:27)
[2019-04-01 14:48] VITALS: BP 120/58; PULSE 73; RESP 14
--- NOTE | 2019-04-01 15:48 | US ---
EXAMINATION TYPE: US paracentesis abd w/image DATE OF EXAM: 04/01/2019 COMPARISON: NONE HISTORY: Ascites. PROCEDURE: Maximal barrier technique was utilized. The skin overlying a suitable pocket of fluid was localized with ultrasound and the overlying skin was prepped and draped. Ultrasound was utilized with sterile technique. Lidocaine was used for local anesthesia and a skin helen made with a scalpel. Catheter was advanced under direct ultrasound guidance into a suitable pocket of fluid and approximately 9.8 liter s of serous fluid were removed. Catheter was withdrawn and hemostasis achieved. There is no immedia te complication; the patient is discharged in stable condition. IMPRESSION: STATUS POST ULTRASOUND GUIDED PARACENTESIS FOR PALLIATION OF ASCITES. THIS PROCEDURE WA S PERFORMED BY THE UNDERSIGNED.
== END 2019-04-01 14:48 | disposition home or self-care (01) ==
LOC: RADPROMAIN 10:45
PROVIDERS: ATTEND Internal Medicine Gastroenterology
DX: R18.8 Other ascites (principal)
CPT/HCPCS: 82565; 85049; 85610; 36415; 49083; P9047

== ENCOUNTER → 2019-04-05 | Outpatient (CLI) | payer MEDICARE, BC ==
[2019-04-05 14:32] LABS: Basophils % (A) 0 %; Eosinophils # (A) 0.1 k/uL (0-0.7); Eosinophils % (A) 0 %; HCT 36.9 % (34.0-46.0); HGB 11.6 gm/dL (11.4-16.0); Lymphocytes # (A) 1.2 k/uL (1.0-4.8); Lymphocytes % (A) 11 %; MCH 31.4 pg (25.0-35.0); MCHC 31.5 g/dL (31.0-37.0); MCV 99.6 fL (80.0-100.0); Macrocytosis Slight; Mean Platelet Volume 10.7; Monocytes # (A) 0.6 k/uL (0-1.0); Monocytes % (A) 6 %; Neutrophils # (A) 8.9 k/uL (1.3-7.7); Neutrophils % (A) 80 %; Platelet Count 224 k/uL (150-450); RBC 3.71 m/uL (3.80-5.40); RDW 14.6 % (11.5-15.5); WBC 11.2 k/uL (3.8-10.6)
[2019-04-05 14:36] LABS: Appearance,Urine Clear (Clear); Bacteria,Urine Many /hpf; Bilirubin,Urine Negative (Negative); Blood,Urine Negative (Negative); Color,Urine Yellow; Glucose,Urine (UA) Negative (Negative); Hyaline Casts,Urine 29 /lpf (0-2); Ketones,Urine Negative (Negative); Leukocyte Esterase,Urine Small (Negative); Mucus,Urine Rare /hpf; Nitrite,Urine Negative (Negative); Protein,Urine Negative (Negative); RBC,Urine 1 /hpf (0-5); Specific Gravity,Urine 1.011 (1.001-1.035); Squamous Epithelial Cell,Urine 1 /hpf (0-4); Urobilinogen,Urine <2.0 mg/dL (<2.0); WBC,Urine 4 /hpf (0-5)
[2019-04-05 14:39] LABS: INR 1.3 (<1.2)
[2019-04-05 14:41] LABS: Protein/Creatinine Ratio,Urine 0.097
[2019-04-05 19:21] LABS: % Iron Saturation 43.9 (12.00-45.00); African American GFR (CKD) 21.1 (60.0-200.0); Albumin 3.1 g/dL (3.80-4.90); Albumin/Globulin Ratio 1.35 (1.60-3.17); Anion Gap 12.3 mmol/L (4.00-12.00); BUN/Creat Ratio 20.83 Ratio (12.00-20.00); Calcium 9.1 mg/dL (8.7-10.3); Carbon Dioxide 21.7 mmol/L (21.6-31.8); Ferritin 111.3 ng/mL (10.0-291.0); Globulin 2.3 g/dL (1.6-3.3); Magnesium 1.6 mg/dL (1.5-2.4); Non-African American GFR(CKD) 18.2 (60.0-200.0); Potassium 4.3 mmol/L (3.5-5.5); Total Bilirubin 1.2 mg/dL (0.3-1.2); Total Protein 5.4 g/dL (6.2-8.2)
== END | disposition home or self-care (01) ==
LOC: LABWHC1 13:17
PROVIDERS: ATTEND Nurse Practitioner
DX: E55.9 Vitamin D deficiency, unspecified (principal); N25.81 Secondary hyperparathyroidism of renal origin; N39.0 Urinary tract infection, site not specified; D64.9 Anemia, unspecified; R80.9 Proteinuria, unspecified; N17.9 Acute kidney failure, unspecified; K74.60 Unspecified cirrhosis of liver
CPT/HCPCS: 36415; 80053; 81001; 82306; 82570; 82728; 83540; 83550; 83735; 83970; 84156; 85025; 85610

== ENCOUNTER 2019-04-15 09:35 | Day surgery (SDC) | payer MEDICARE, BC ==
[2019-04-15 10:24] LABS: Mean Platelet Volume 9.5; Platelet Count 203 k/uL (150-450)
[2019-04-15 10:40] LABS: INR 1.3 (<1.2); Prothrombin Time 12.7 sec (9.0-12.0)
[2019-04-15 10:41] VITALS: TEMP 97.7
[2019-04-15] MEDS: ALBUMIN HUMAN 25% 50 ML in EMPTY BAG 1 BAG IVPB SCH ×4 (11:00→12:01)
[2019-04-15 12:13] VITALS: RESP 16
[2019-04-15 13:02] VITALS: BP 113/65; PULSE 70
--- NOTE | 2019-04-15 13:46 | US ---
Ultrasound-guided paracentesis. DATE OF EXAM: 04/15/2019 CLINICAL HISTORY: Ascites The procedure was discussed with the patient. The risks, complications, benefits, and alternatives we re discussed and any questions were answered. Informed consent was obtained. The patient was placed s upine on the ultrasound table and prepped and draped in the usual sterile fashion. All elements of maximal barrier technique were utilized. Under ultrasound guidance, access into the right lower quadrant was obtained, via the paracentesis catheter system and direct ultrasound guidanc e. Approximately 7.6 liters of straw-colored fluid was removed. The patient was stable throughout the pr ocedure and remained stable upon discharge from Department of Radiology. IMPRESSION: Successful paracentesis under ultrasound guidance.
== END 2019-04-15 12:40 | disposition home or self-care (01) ==
LOC: RADPROMAIN 09:35
PROVIDERS: ATTEND Internal Medicine Gastroenterology
DX: R18.8 Other ascites (principal)
CPT/HCPCS: 82565; 85049; 85610; 36415; 49083; P9047

== ENCOUNTER 2019-04-29 09:22 | Day surgery (SDC) | payer MEDICARE, BC ==
[2019-04-29 10:13] LABS: Mean Platelet Volume 9.9; Platelet Count 197 k/uL (150-450)
[2019-04-29 10:16] VITALS: TEMP 98
[2019-04-29 10:27] LABS: INR 1.2 (<1.2); Prothrombin Time 12.3 sec (9.0-12.0)
[2019-04-29 10:35] LABS: Calcium 9.2 mg/dL (8.4-10.2); Potassium 4.4 mmol/L (3.5-5.1)
[2019-04-29] MEDS: ALBUMIN HUMAN 25% 50 ML in EMPTY BAG 1 BAG IVPB SCH ×4 (11:31→12:11)
[2019-04-29 12:44] VITALS: RESP 14
--- NOTE | 2019-04-29 13:14 | US ---
EXAMINATION TYPE: US paracentesis abd w/image DATE OF EXAM: 04/29/2019 COMPARISON: NONE HISTORY: Ascites. PROCEDURE: Maximal barrier technique was utilized. The skin overlying a suitable pocket of fluid was localized with ultrasound and the overlying skin was prepped and draped. Ultrasound was utilized with sterile technique. Lidocaine was used for local anesthesia and a skin helen made with a scalpel. Catheter was advanced under direct ultrasound guidance into a suitable pocket of fluid and approximately 9.3 liter s of serous fluid were removed. Catheter was withdrawn and hemostasis achieved. There is no immedia te complication; the patient is discharged in stable condition. IMPRESSION: STATUS POST ULTRASOUND GUIDED PARACENTESIS FOR PALLIATION OF ASCITES. THIS PROCEDURE WA S PERFORMED BY THE UNDERSIGNED.
[2019-04-29 13:19] VITALS: BP 108/59; PULSE 75
== END 2019-04-29 13:15 | disposition home or self-care (01) ==
LOC: RADPROMAIN 09:22
PROVIDERS: ATTEND Internal Medicine Gastroenterology
DX: R18.8 Other ascites (principal)
CPT/HCPCS: 80048; 85049; 85610; 36415; 49083; P9047

== ENCOUNTER 2019-05-13 09:57 | Day surgery (SDC) | payer MEDICARE, BC ==
[2019-05-13 10:14] VITALS: RESP 20; TEMP 97.8
[2019-05-13 10:29] LABS: Mean Platelet Volume 9.9; Platelet Count 194 k/uL (150-450)
[2019-05-13 10:35] LABS: INR 1.3 (<1.2); Prothrombin Time 12.6 sec (9.0-12.0)
[2019-05-13] MEDS: ALBUMIN HUMAN 25% 50 ML in EMPTY BAG 1 BAG IVPB SCH ×4 (11:04→11:54)
[2019-05-13 11:55] VITALS: BP 112/56; PULSE 63
--- NOTE | 2019-05-16 10:33 | US ---
Ultrasound-guided paracentesis. DATE OF EXAM: 05/13/2019 CLINICAL HISTORY: Ascites The procedure was discussed with the patient. The risks, complications, benefits, and alternatives we re discussed and any questions were answered. Informed consent was obtained. The patient was placed s upine on the ultrasound table and prepped and draped in the usual sterile fashion. All elements of maximal barrier technique were utilized. Under ultrasound guidance, access into the right lower quadrant was obtained, via the paracentesis catheter system and direct ultrasound guidanc e. Approximately 7.9 liters of straw-colored fluid was removed. The patient was stable throughout the pr ocedure and remained stable upon discharge from Department of Radiology. IMPRESSION: Successful paracentesis under ultrasound guidance.
== END 2019-05-13 12:15 | disposition home or self-care (01) ==
LOC: RADPROMAIN 09:57
PROVIDERS: ATTEND Internal Medicine Gastroenterology
DX: R18.8 Other ascites (principal)
CPT/HCPCS: 82565; 85049; 85610; 36415; 49083; P9047

== ENCOUNTER 2019-05-27 09:40 | Day surgery (SDC) | payer MEDICARE, BC ==
[2019-05-27 10:26] VITALS: TEMP 97.4
[2019-05-27 10:27] LABS: Mean Platelet Volume 9.6; Platelet Count 185 k/uL (150-450)
[2019-05-27 10:33] LABS: INR 1.2 (<1.2); Prothrombin Time 12.2 sec (9.0-12.0)
[2019-05-27 10:59] LABS: T4, Free (Free Thyroxine) 2.63 ng/dL (0.78-2.19)
[2019-05-27] MEDS: ALBUMIN HUMAN 25% 50 ML in EMPTY BAG 1 BAG IVPB SCH ×4 (11:24→12:05)
[2019-05-27 12:30] VITALS: RESP 16
[2019-05-27 12:38] VITALS: BP 135/67; PULSE 70
--- NOTE | 2019-05-27 13:03 | US ---
Ultrasound-guided paracentesis. DATE OF EXAM: 05/27/2019 CLINICAL HISTORY: Ascites The procedure was discussed with the patient. The risks, complications, benefits, and alternatives we re discussed and any questions were answered. Informed consent was obtained. The patient was placed s upine on the ultrasound table and prepped and draped in the usual sterile fashion. All elements of maximal barrier technique were utilized. Under ultrasound guidance, access into the right lower quadrant was obtained, via the paracentesis catheter system and direct ultrasound guidanc e. Approximately 8.5 liters of straw-colored fluid was removed. The patient was stable throughout the pr ocedure and remained stable upon discharge from Department of Radiology. IMPRESSION: Successful paracentesis under ultrasound guidance.
== END 2019-05-27 12:55 | disposition home or self-care (01) ==
LOC: RADPROMAIN 09:40
PROVIDERS: ATTEND Internal Medicine Gastroenterology
DX: R18.8 Other ascites (principal)
CPT/HCPCS: 84439; 82565; 84443; 85049; 85610; 36415; 49083; P9047

== ENCOUNTER 2019-06-10 09:22 | Day surgery (SDC) | payer MEDICARE, BC ==
[2019-06-10 10:02] LABS: Mean Platelet Volume 9.8; Platelet Count 229 k/uL (150-450)
[2019-06-10 10:04] VITALS: TEMP 97.6
[2019-06-10 10:08] LABS: INR 1.2 (<1.2); Prothrombin Time 12.5 sec (9.0-12.0)
[2019-06-10] MEDS: ALBUMIN HUMAN 25% 50 ML in EMPTY BAG 1 BAG IVPB SCH ×4 (10:45→11:39)
[2019-06-10 11:29] VITALS: RESP 16
--- NOTE | 2019-06-10 13:02 | US ---
Ultrasound-guided paracentesis. DATE OF EXAM: 06/10/2019 CLINICAL HISTORY: Ascites The procedure was discussed with the patient. The risks, complications, benefits, and alternatives we re discussed and any questions were answered. Informed consent was obtained. The patient was placed s upine on the ultrasound table and prepped and draped in the usual sterile fashion. All elements of maximal barrier technique were utilized. Under ultrasound guidance, access into the right lower quadrant was obtained, via the paracentesis catheter system and direct ultrasound guidanc e. Approximately 9 liters of straw-colored fluid was removed. The patient was stable throughout the proc edure and remained stable upon discharge from Department of Radiology. IMPRESSION: Successful paracentesis under ultrasound guidance.
[2019-06-10 13:04] VITALS: BP 129/83; PULSE 75
== END 2019-06-10 12:25 | disposition home or self-care (01) ==
LOC: RADPROMAIN 09:22
PROVIDERS: ATTEND Internal Medicine Gastroenterology
DX: R18.8 Other ascites (principal)
CPT/HCPCS: 82565; 85049; 85610; 36415; 49083; P9047

== ENCOUNTER 2019-06-17 09:29 | Day surgery (SDC) | payer MEDICARE, BC ==
[2019-06-17 10:06] LABS: Mean Platelet Volume 10.4; Platelet Count 180 k/uL (150-450)
[2019-06-17 10:09] VITALS: TEMP 97.3
[2019-06-17 10:12] LABS: INR 1.2 (<1.2); Prothrombin Time 12.6 sec (9.0-12.0)
[2019-06-17] MEDS: ALBUMIN HUMAN 25% 50 ML in EMPTY BAG 1 BAG IVPB SCH ×3 (11:13→11:29)
[2019-06-17 11:58] VITALS: BP 129/61; PULSE 63; RESP 18
--- NOTE | 2019-06-17 13:41 | US ---
Ultrasound-guided paracentesis. DATE OF EXAM: 06/17/2019 CLINICAL HISTORY: Ascites The procedure was discussed with the patient. The risks, complications, benefits, and alternatives we re discussed and any questions were answered. Informed consent was obtained. The patient was placed s upine on the ultrasound table and prepped and draped in the usual sterile fashion. All elements of maximal barrier technique were utilized. Under ultrasound guidance, access into the right lower quadrant was obtained, via the paracentesis catheter system and direct ultrasound guidanc e. Approximately 6.5 liters of straw-colored fluid was removed. The patient was stable throughout the pr ocedure and remained stable upon discharge from Department of Radiology. IMPRESSION: Successful paracentesis under ultrasound guidance.
== END 2019-06-17 12:10 | disposition home or self-care (01) ==
LOC: RADPROMAIN 09:29
PROVIDERS: ATTEND Internal Medicine Gastroenterology
DX: R18.8 Other ascites (principal); Z11.59 Encounter for screening for other viral diseases
CPT/HCPCS: 82565; 85049; 85610; 87635; 36415; 49083; P9047

== ENCOUNTER 2019-06-24 10:06 | Day surgery (SDC) | payer MEDICARE, BC ==
[2019-06-24 10:41] LABS: Mean Platelet Volume 10.2; Platelet Count 205 k/uL (150-450)
[2019-06-24 10:45] LABS: INR 1.3 (<1.2); Prothrombin Time 12.6 sec (9.0-12.0)
[2019-06-24 11:55] VITALS: RESP 18; TEMP 97.8
[2019-06-24] MEDS: ALBUMIN HUMAN 25% 50 ML in EMPTY BAG 1 BAG IVPB SCH ×3 (12:18→14:28)
[2019-06-24 12:51] VITALS: BP 116/64; PULSE 72
--- NOTE | 2019-06-27 09:14 | US ---
EXAMINATION TYPE: US paracentesis abd w/image DATE OF EXAM: 06/24/2019 COMPARISON: NONE HISTORY: Ascites. PROCEDURE: Maximal barrier technique was utilized. The skin overlying a suitable pocket of fluid was localized with ultrasound and the overlying skin was prepped and draped. Ultrasound was utilized with sterile technique. Lidocaine was used for local anesthesia and a skin helen made with a scalpel. Catheter was advanced under direct ultrasound guidance into a suitable pocket of fluid and approximately 5 liters of serous fluid were removed. Catheter was withdrawn and hemostasis achieved. There is no immediate complication; the patient is discharged in stable condition. IMPRESSION: STATUS POST ULTRASOUND GUIDED PARACENTESIS FOR PALLIATION OF ASCITES. THIS PROCEDURE WA S PERFORMED BY THE UNDERSIGNED.
== END 2019-06-24 13:00 | disposition home or self-care (01) ==
LOC: RADPROMAIN 10:06
PROVIDERS: ATTEND Internal Medicine Gastroenterology
DX: R18.8 Other ascites (principal)
CPT/HCPCS: 85049; 85610; 87635; 36415; 49083; P9047

== ENCOUNTER 2019-07-04 18:05 | Inpatient (IN) | payer MEDICARE, BC ==
[2019-07-04] MEDS ORDERED: SODIUM CHLORIDE 0.9% 1,000 ML IV STA (19:28)
--- NOTE | 2019-07-04 19:58 | ED ---
General Adult HPI - General Chief complaint: Recheck/Abnormal Lab/Rx Stated complaint: fluid retention on abdomen Time Seen by Provider: 07/04/19 19:04 Source: patient, RN notes reviewed, old records reviewed Mode of arrival: ambulatory Limitations: no limitations - History of Present Illness Initial comments: Patient is a 83-year-old female with a history of stroke cyst, with frequent paracentesis scheduled. She reports she missed last weeks paracentesis. She presents today with a family friend to has been in charge of taking care of her. She reports that she has no local family and the care of the Patient has been solely on her. Patient has had frequent falls over the past few weeks, generalized weakness. She denies any specific chest pain. She does report significant lower extremity edema and now reports that her legs are "leaking". Patient states that she doesn't live alone at this time. Patient's caregiver and Patient states that she may be seeking consults to social work is she may benefit from long-term care. - Related Data Home Medications Medication Instructions Recorded Confirmed Atorvastatin Calcium [Lipitor] 10 mg PO HS 07/12/18 07/04/19 Levothyroxine Sodium [Synthroid] 150 mcg PO DAILY 07/12/18 07/04/19 Multivitamins, Thera [Multivitamin 1 tab PO DAILY 07/18/18 07/04/19 (formulary)] Spironolactone 25 mg PO DAILY 07/04/19 07/04/19 Previous Rx's Medication Instructions Recorded Furosemide [Lasix] 40 mg PO BID@0900,1600 #60 tab 10/06/18 Allergies Allergy/AdvReac Type Severity Reaction Status Date / Time aspirin AdvReac Unknown Verified 07/04/19 22:08 Review of Systems ROS Statement: Those systems with pertinent positive or pertinent negative responses have been documented in the HPI. ROS Other: All systems not noted in ROS Statement are negative. Past Medical History Past Medical History: Cancer, Hyperlipidemia, Hypertension, Osteoarthritis (OA), Thyroid Disorder Additional Past Medical History / Comment(s): Bilateral breast cancer with mastectomies (years apart), facial melanoma, Von Willebrand disease, aortic and tricuspid murmur, arthritis in multiple joints, hypothyroid, lower leg edema, ascites Last Myocardial Infarction Date:: unknown History of Any Multi-Drug Resistant Organisms: None Reported Past Surgical History: Breast Surgery, Hernia Repair Additional Past Surgical History / Comment(s): BILATERAL MASTECTOMY, MELANOMA removal from face with reconstruction, multiple paracenetesis, D & C, punch biopsy Past Anesthesia/Blood Transfusion Reactions: No Reported Reaction Past Psychological History: No Psychological Hx Reported Smoking Status: Never smoker Past Alcohol Use History: None Reported Past Drug Use History: None Reported - Past Family History Father Additional Family Medical History / Comment(s): Father had heart disease and of this at the age of 73 yrs. Mother Family Medical History: Blood Disorder, Hypertension Additional Family Medical History / Comment(s): Von Willebrand disease. Mother at the age of 88 or 89yrs. Brother(s) Family Medical History: Blood Disorder Additional Family Medical History / Comment(s): Brother of Von Willebrand. General Exam - General Exam Comments Initial Comments: 83-year-old female. Alert and oriented 3. Limitations: no limitations General appearance: alert, in no apparent distress Head exam: Present: atraumatic, normocephalic, normal inspection Eye exam: Present: normal appearance, PERRL, EOMI. Absent: scleral icterus, conjunctival injection, periorbital swelling ENT exam: Present: normal exam, mucous membranes moist Neck exam: Present: normal inspection. Absent: tenderness, meningismus, lymphadenopathy Respiratory exam: Present: decreased breath sounds. Absent: normal lung sounds bilaterally, respiratory distress, wheezes, rales, rhonchi, stridor Cardiovascular Exam: Present: regular rate, normal rhythm, normal heart sounds. Absent: systolic murmur, diastolic murmur, rubs, gallop, clicks GI/Abdominal exam: Present: soft, normal bowel sounds, other (Patient has evidence of ascites.). Absent: distended, tenderness, guarding, rebound, rigid Extremities exam: Present: normal inspection, full ROM, normal capillary refill, other (Is bilateral peripheral edema with weeping. ). Absent: tenderness, pedal edema, joint swelling, calf tenderness Back exam: Present: normal inspection Neurological exam: Present: alert, oriented X3, CN II-XII intact Psychiatric exam: Present: normal affect, normal mood Skin exam: Present: warm, dry, intact, normal color. Absent: rash Course Vital Signs 07/04/19 07/04/19 07/04/19 18:33 20:00 21:00 Temperature 98.3 F Pulse Rate 72 81 70 Respiratory 18 16 16 Rate Blood Pressure 103/67 110/64 O2 Sat by Pulse 98 96 Oximetry 07/04/19 22:00 Temperature Pulse Rate 68 Respiratory 16 Rate Blood Pressure 120/58 O2 Sat by Pulse Oximetry Medical Decision Making - Medical Decision Making 83-year-old female with history of cirrhosis and ascites presents today generalized weakness frequent falls, and lower extremity swelling and worsening ascites. Patient is requesting paracentesis. At this time patient's lab work was reviewed. She is found to be hyperkalemic. No significant EKG changes. She started hyperkalemia protocol. Some evidence of dehydration as well as low sodium. She was given some fluid in emergency Department this time. Patient's case was discussed with Dr. Garcia Patient will be admitted at this time with GI consult.Patient was found to have an elevated troponin 0.036 likely due to renal function. We will continue to trend this but she denies any specific chest pain. Chest x-ray shows new density on the right midlung field could be healing fracture or to exclude pulmonary nodule. Patient will be admitted this time. Discussed the case with Dr. Funes. - Lab Data Result diagrams: 07/04/19 19:51 07/04/19 21:27 Lab Results 07/04/19 07/04/19 07/04/19 Range/Units 19:51 19:51 19:51 WBC 10.5 (3.8-10.6) k/uL RBC 3.39 L (3.80-5.40) m/uL Hgb 10.3 L (11.4-16.0) gm/dL Hct 32.9 L (34.0-46.0) % MCV 97.0 (80.0-100.0) fL MCH 30.4 (25.0-35.0) pg MCHC 31.3 (31.0-37.0) g/dL RDW 14.8 (11.5-15.5) % Plt Count 203 (150-450) k/uL Neutrophils % 72 % Lymphocytes % 16 % Monocytes % 8 % Eosinophils % 1 % Basophils % 0 % Neutrophils # 7.5 (1.3-7.7) k/uL Lymphocytes # 1.6 (1.0-4.8) k/uL Monocytes # 0.8 (0-1.0) k/uL Eosinophils # 0.1 (0-0.7) k/uL Basophils # 0.0 (0-0.2) k/uL Hypochromasia Slight PT 12.8 H (9.0-12.0) sec INR 1.3 H (<1.2) APTT 24.0 (22.0-30.0) sec Sodium 126 L (137-145) mmol/L Potassium 7.4 H* (3.5-5.1) mmol/L Chloride 102 (98-107) mmol/L Carbon Dioxide 16 L (22-30) mmol/L Anion Gap 8 mmol/L BUN 38 H (7-17) mg/dL Creatinine 1.58 H (0.52-1.04) mg/dL Est GFR (CKD-EPI)AfAm 35 (>60 ml/min/1.73 sqM) Est GFR (CKD-EPI)NonAf 30 (>60 ml/min/1.73 sqM) Glucose 99 (74-99) mg/dL Calcium 9.4 (8.4-10.2) mg/dL Total Bilirubin 1.1 (0.2-1.3) mg/dL AST 63 H (14-36) U/L ALT 33 (4-34) U/L Alkaline Phosphatase 168 H (38-126) U/L Troponin I (0.000-0.034) ng/mL NT-Pro-B Natriuret Pep pg/mL Total Protein 6.0 L (6.3-8.2) g/dL Albumin 2.6 L (3.5-5.0) g/dL Amylase 113 H (30-110) U/L Lipase 429 H (23-300) U/L Urine Color Urine Appearance (Clear) Urine pH (5.0-8.0) Ur Specific [place] (1.001-1.035) Urine Protein (Negative) Urine Glucose (UA) (Negative) Urine Ketones (Negative) Urine Blood (Negative) Urine Nitrite (Negative) Urine Bilirubin (Negative) Urine Urobilinogen (<2.0) mg/dL Ur Leukocyte Esterase (Negative) Urine RBC (0-5) /hpf Urine WBC (0-5) /hpf Ur Squamous Epith Cells (0-4) /hpf Urine Bacteria (None) /hpf Hyaline Casts (0-2) /lpf Urine Mucus (None) /hpf 07/04/19 07/04/19 07/04/19 Range/Units 19:51 19:51 21:17 WBC (3.8-10.6) k/uL RBC (3.80-5.40) m/uL Hgb (11.4-16.0) gm/dL Hct (34.0-46.0) % MCV (80.0-100.0) fL MCH (25.0-35.0) pg MCHC (31.0-37.0) g/dL RDW (11.5-15.5) % Plt Count (150-450) k/uL Neutrophils % % Lymphocytes % % Monocytes % % Eosinophils % % Basophils % % Neutrophils # (1.3-7.7) k/uL Lymphocytes # (1.0-4.8) k/uL Monocytes # (0-1.0) k/uL Eosinophils # (0-0.7) k/uL Basophils # (0-0.2) k/uL Hypochromasia PT (9.0-12.0) sec INR (<1.2) APTT (22.0-30.0) sec Sodium (137-145) mmol/L Potassium (3.5-5.1) mmol/L Chloride (98-107) mmol/L Carbon Dioxide (22-30) mmol/L Anion Gap mmol/L BUN (7-17) mg/dL Creatinine (0.52-1.04) mg/dL Est GFR (CKD-EPI)AfAm (>60 ml/min/1.73 sqM) Est GFR (CKD-EPI)NonAf (>60 ml/min/1.73 sqM) Glucose (74-99) mg/dL Calcium (8.4-10.2) mg/dL Total Bilirubin (0.2-1.3) mg/dL AST (14-36) U/L ALT (4-34) U/L Alkaline Phosphatase (38-126) U/L Troponin I 0.036 H* (0.000-0.034) ng/mL NT-Pro-B Natriuret Pep 1180 pg/mL Total Protein (6.3-8.2) g/dL Albumin (3.5-5.0) g/dL Amylase (30-110) U/L Lipase (23-300) U/L Urine Color Yellow Urine Appearance Cloudy H (Clear) Urine pH 5.5 (5.0-8.0) Ur Specific [place] 1.017 (1.001-1.035) Urine Protein Negative (Negative) Urine Glucose (UA) Negative (Negative) Urine Ketones Negative (Negative) Urine Blood Negative (Negative) Urine Nitrite Negative (Negative) Urine Bilirubin Negative (Negative) Urine Urobilinogen <2.0 (<2.0) mg/dL Ur Leukocyte Esterase Large H (Negative) Urine RBC 2 (0-5) /hpf Urine WBC 16 H (0-5) /hpf Ur Squamous Epith Cells 4 (0-4) /hpf Urine Bacteria Many H (None) /hpf Hyaline Casts 1 (0-2) /lpf Urine Mucus Rare H (None) /hpf 07/04/19 Range/Units 21:27 WBC (3.8-10.6) k/uL RBC (3.80-5.40) m/uL Hgb (11.4-16.0) gm/dL Hct (34.0-46.0) % MCV (80.0-100.0) fL MCH (25.0-35.0) pg MCHC (31.0-37.0) g/dL RDW (11.5-15.5) % Plt Count (150-450) k/uL Neutrophils % % Lymphocytes % % Monocytes % % Eosinophils % % Basophils % % Neutrophils # (1.3-7.7) k/uL Lymphocytes # (1.0-4.8) k/uL Monocytes # (0-1.0) k/uL Eosinophils # (0-0.7) k/uL Basophils # (0-0.2) k/uL Hypochromasia PT (9.0-12.0) sec INR (<1.2) APTT (22.0-30.0) sec Sodium (137-145) mmol/L Potassium 6.8 H* (3.5-5.1) mmol/L Chloride (98-107) mmol/L Carbon Dioxide (22-30) mmol/L Anion Gap mmol/L BUN (7-17) mg/dL Creatinine (0.52-1.04) mg/dL Est GFR (CKD-EPI)AfAm (>60 ml/min/1.73 sqM) Est GFR (CKD-EPI)NonAf (>60 ml/min/1.73 sqM) Glucose (74-99) mg/dL Calcium (8.4-10.2) mg/dL Total Bilirubin (0.2-1.3) mg/dL AST (14-36) U/L ALT (4-34) U/L Alkaline Phosphatase (38-126) U/L Troponin I (0.000-0.034) ng/mL NT-Pro-B Natriuret Pep pg/mL Total Protein (6.3-8.2) g/dL Albumin (3.5-5.0) g/dL Amylase (30-110) U/L Lipase (23-300) U/L Urine Color Urine Appearance (Clear) Urine pH (5.0-8.0) Ur Specific [place] (1.001-1.035) Urine Protein (Negative) Urine Glucose (UA) (Negative) Urine Ketones (Negative) Urine Blood (Negative) Urine Nitrite (Negative) Urine Bilirubin (Negative) Urine Urobilinogen (<2.0) mg/dL Ur Leukocyte Esterase (Negative) Urine RBC (0-5) /hpf Urine WBC (0-5) /hpf Ur Squamous Epith Cells (0-4) /hpf Urine Bacteria (None) /hpf Hyaline Casts (0-2) /lpf Urine Mucus (None) /hpf 07/04/19 19:57 EKG performed at 1946 shows normal sinus rhythm cannot rule out anterior infarct age interim. Abnormal EKG. Ventricular rate 70 bpm. Was 196 most seconds. QT QTc is 362/390 ms. QRS is 96 ms. - Radiology Data Radiology results: report reviewed Patient was found to have an elevated troponin 0.036. We will continue to trend this but she denies any specific chest pain. Urinalysis shows evidence of UTI. Chest x-ray shows new density on the right midlung field could be healing fracture or to exclude pulmonary nodule. Disposition Clinical Impression: Peripheral edema, Acute kidney injury, Cirrhosis, Ascites, Von Willebrand disease, Hyperkalemia Disposition: ADMITTED IP TO THIS HOSP Condition: Stable Is patient prescribed a controlled substance at d/c from ED?: No Referrals: Jakob Hauser [Primary Care Provider] - 1-2 days Time of Disposition: 22:58
--- NOTE | 2019-07-04 20:03 | XR ---
EXAMINATION TYPE: XR chest 2V DATE OF EXAM: 07/04/2019 COMPARISON: 10/04/2018 HISTORY: Short of breath TECHNIQUE: 2 views. FINDINGS: Heart is normal. There is a poorly marginated 1.5 cm density in the right midlung. The other lung fi elds are clear. There are no hilar masses. There is no pleural effusion. Thoracic spine is intact. IMPRESSION: There is new density over the right midlung field. This could be healing rib fracture. Re commend shallow oblique views to confirm or exclude a pulmonary nodule. Normal heart.
[2019-07-04 20:35] LABS: Albumin 2.6 g/dL (3.5-5.0); Calcium 9.4 mg/dL (8.4-10.2); Total Bilirubin 1.1 mg/dL (0.2-1.3)
[2019-07-04 20:47] LABS: Basophils % (A) 0 %; Eosinophils # (A) 0.1 k/uL (0-0.7); Eosinophils % (A) 1 %; HCT 32.9 % (34.0-46.0); HGB 10.3 gm/dL (11.4-16.0); Hypochromasia Slight; Lymphocytes # (A) 1.6 k/uL (1.0-4.8); Lymphocytes % (A) 16 %; MCH 30.4 pg (25.0-35.0); MCHC 31.3 g/dL (31.0-37.0); Mean Platelet Volume 10.4; Monocytes # (A) 0.8 k/uL (0-1.0); Monocytes % (A) 8 %; Neutrophils # (A) 7.5 k/uL (1.3-7.7); Neutrophils % (A) 72 %; Platelet Count 203 k/uL (150-450); RBC 3.39 m/uL (3.80-5.40); RDW 14.8 % (11.5-15.5); WBC 10.5 k/uL (3.8-10.6)
[2019-07-04 20:48] LABS: Potassium 7.4 mmol/L (3.5-5.1)
[2019-07-04 20:53] LABS: INR 1.3 (<1.2); Prothrombin Time 12.8 sec (9.0-12.0)
[2019-07-04] MEDS ORDERED: ALBUTEROL NEB (CONC) 2.5 MG/0.5 ML INHALATION ONE (21:50)
[2019-07-04] MEDS ORDERED: DEXTROSE 50% SYRINGE 50 ML IVP ONE (21:50)
[2019-07-04] MEDS ORDERED: INSULIN REGULAR 100 UNIT/ML VIAL IV ONE (21:50)
[2019-07-04 22:06] LABS: Appearance,Urine Cloudy (Clear); Bacteria,Urine Many /hpf; Bilirubin,Urine Negative (Negative); Blood,Urine Negative (Negative); Color,Urine Yellow; Glucose,Urine (UA) Negative (Negative); Hyaline Casts,Urine 1 /lpf (0-2); Ketones,Urine Negative (Negative); Leukocyte Esterase,Urine Large (Negative); Mucus,Urine Rare /hpf; Nitrite,Urine Negative (Negative); PH, Urine 5.5 (5.0-8.0); Protein,Urine Negative (Negative); RBC,Urine 2 /hpf (0-5); Specific Gravity,Urine 1.017 (1.001-1.035); Squamous Epithelial Cell,Urine 4 /hpf (0-4); Urobilinogen,Urine <2.0 mg/dL (<2.0); WBC,Urine 16 /hpf (0-5)
[2019-07-04] MEDS ORDERED: SODIUM BICARB 8.4% 50 ML SYR (1 MEQ/ML) IV ONE (22:51)
[2019-07-04] MEDS ORDERED: SODIUM POLYSTYRENE SULFONATE 15 GM/60 ML BOTTLE PO ONE (22:51)
[2019-07-04] MEDS ORDERED: SODIUM CHLORIDE 0.9% 1,000 ML IV ONE (22:59)
[2019-07-04] MEDS ORDERED: CALCIUM GLUCONATE 1 GM in SODIUM CHLORIDE 0.9% 100 ML IVPB ONE (23:00)
[2019-07-05] MEDS ORDERED: IBUPROFEN 400 MG TAB PO PRN (00:20)
[2019-07-05] MEDS ORDERED: MORPHINE SULFATE 4 MG/ML SYRINGE IV PRN (00:20)
[2019-07-05] MEDS ORDERED: traMADol 50 MG TAB PO PRN (00:20)
[2019-07-05] MEDS ORDERED: NALOXONE 0.4 MG/ML 1 ML VIAL IV PRN (00:20)
[2019-07-05] MEDS ORDERED: ACETAMINOPHEN TAB 325 MG TAB PO PRN (00:20)
[2019-07-05] MEDS ORDERED: INSULIN REGULAR 100 UNIT/ML VIAL IV ONE (03:58)
[2019-07-05] MEDS ORDERED: DEXTROSE 50% SYRINGE 50 ML IVP ONE (03:58)
--- NOTE | 2019-07-05 05:52 | P.HPIM ---
History of Present Illness H&P Date: 07/05/19 Chief Complaint: Abdominal distention missed paracentesis 83-year-old female with idiopathic liver cirrhosis and von Willebrand disease Patient lives alone and currently not having proper care she has missed her paracentesis session for the past 2 weeks and this has been causing a lot of swelling in her legs and abdomen affecting her breathing denies any abdominal pain denies any fevers or chills denies any headache nausea or vomiting. Patient is asking also for social media strategist help to provide her with resources to get some care at home she otherwise denies any GI bleeding, urinary symptoms, nausea or vomiting Patient also reports falling at home due to generalized weakness. In the ED she was found to have elevated liver enzymes, anemia, slightly elevated troponin EKG showed no acute ST changes. Patient also has CK D stage III and hyponatremia. Patient also found to have hyperkalemia Chest x-ray showed right mid lung field no density versus a healing fracture of the rib Patient admitted for management of her hyperkalemia and for interventional radiology to perform paracentesis Review of Systems Pertinent positives as noted in HPI. All other systems were reviewed and are negative Past Medical History Past Medical History: Cancer, Hyperlipidemia, Hypertension, Osteoarthritis (OA), Thyroid Disorder Additional Past Medical History / Comment(s): Bilateral breast cancer with mastectomies (years apart), facial melanoma, Von Willebrand disease, aortic and tricuspid murmur, arthritis in multiple joints, hypothyroid, lower leg edema, ascites Last Myocardial Infarction Date:: unknown History of Any Multi-Drug Resistant Organisms: None Reported Past Surgical History: Breast Surgery, Hernia Repair Additional Past Surgical History / Comment(s): BILATERAL MASTECTOMY, MELANOMA removal from face with reconstruction, multiple paracenetesis, D & C, punch biopsy Past Anesthesia/Blood Transfusion Reactions: No Reported Reaction Past Psychological History: No Psychological Hx Reported Smoking Status: Never smoker Past Alcohol Use History: None Reported Past Drug Use History: None Reported - Past Family History Father Additional Family Medical History / Comment(s): Father had heart disease and of this at the age of 73 yrs. Mother Family Medical History: Blood Disorder, Hypertension Additional Family Medical History / Comment(s): Von Willebrand disease. Mother at the age of 88 or 89yrs. Brother(s) Family Medical History: Blood Disorder Additional Family Medical History / Comment(s): Brother of Von Willebrand. Medications and Allergies Home Medications Medication Instructions Recorded Confirmed Type Atorvastatin Calcium [Lipitor] 10 mg PO HS 07/12/18 07/04/19 History Levothyroxine Sodium [Synthroid] 150 mcg PO DAILY 07/12/18 07/04/19 History Multivitamins, Thera [Multivitamin 1 tab PO DAILY 07/18/18 07/04/19 History (formulary)] Furosemide [Lasix] 40 mg PO BID@0900,1600 #60 tab 10/06/18 07/04/19 Rx Spironolactone 25 mg PO DAILY 07/04/19 07/04/19 History Allergies Allergy/AdvReac Type Severity Reaction Status Date / Time aspirin AdvReac Unknown Verified 07/04/19 22:08 Physical Exam Vitals: Vital Signs Temp Pulse Resp BP Pulse Ox 07/05/19 01:00 82 16 96 07/05/19 00:00 84 16 112/51 95 07/04/19 23:10 85 07/04/19 23:00 85 16 112/63 07/04/19 22:59 84 07/04/19 22:00 68 16 120/58 07/04/19 21:00 70 16 07/04/19 20:00 81 16 110/64 96 07/04/19 18:33 98.3 F 72 18 103/67 98 Intake and Output 07/04/19 07/04/19 07/05/19 14:59 22:59 06:59 Other: Weight 53.524 kg Constitutional: No acute distress, conversant, pleasant Eyes: Scleral jaundice, moist conjunctiva, Pupils equal round reactive to light ENMT: NC/AT Oropharynx clear, no erythema, or exudates Neck: Supple, FROM, no masses, or JVD No carotid bruits No thyromegaly Lungs: Clear to auscultation Clear to percussion Normal respiratory effort, no accessory muscle use Cardiovascular: Heart regular in rate and rhythm, Systolic murmurs, no gallops, or rubs No peripheral edema Abdominal: Abdomen is moderate to severely distended no tenderness to deep palpation, positive transmitting thr Nontender, no guarding, rebound or rigidity Abdomen moving with respiration Normoactive bowel sounds No palpable mass No abdominal wall hernia noted Skin: Normal temperature, tone, texture, turgor No induration No subcutaneous nodules No rash, lesions No ulcers Extremities: No digital cyanosis No clubbing Pedal pulses intact and symmetrical Radial pulses intact and symmetrical No calf tenderness Psychiatric: Alert and oriented to person, place and time Appropriate affect fair judgement Neuro Muscles Strength 4/5 in all 4 extremities Sensation to light touch grossly present throughout Cranial nerves II-XII grossly intact No focal sensory deficits Lymphatics: no palpable cervical or supraclavicular , or inguinal lymph nodes Results CBC & Chem 7: 07/04/19 19:51 07/05/19 03:02 Labs: Abnormal Lab Results - Last 24 Hours (Table) 07/04/19 07/04/19 07/04/19 Range/Units 19:51 19:51 19:51 RBC 3.39 L (3.80-5.40) m/uL Hgb 10.3 L (11.4-16.0) gm/dL Hct 32.9 L (34.0-46.0) % PT 12.8 H (9.0-12.0) sec INR 1.3 H (<1.2) Sodium 126 L (137-145) mmol/L Potassium 7.4 H* (3.5-5.1) mmol/L Carbon Dioxide 16 L (22-30) mmol/L BUN 38 H (7-17) mg/dL Creatinine 1.58 H (0.52-1.04) mg/dL AST 63 H (14-36) U/L Alkaline Phosphatase 168 H (38-126) U/L Troponin I (0.000-0.034) ng/mL Total Protein 6.0 L (6.3-8.2) g/dL Albumin 2.6 L (3.5-5.0) g/dL Amylase 113 H (30-110) U/L Lipase 429 H (23-300) U/L Urine Appearance (Clear) Ur Leukocyte Esterase (Negative) Urine WBC (0-5) /hpf Urine Bacteria (None) /hpf Urine Mucus (None) /hpf 07/04/19 07/04/19 07/04/19 Range/Units 19:51 21:17 21:27 RBC (3.80-5.40) m/uL Hgb (11.4-16.0) gm/dL Hct (34.0-46.0) % PT (9.0-12.0) sec INR (<1.2) Sodium (137-145) mmol/L Potassium 6.8 H* (3.5-5.1) mmol/L Carbon Dioxide (22-30) mmol/L BUN (7-17) mg/dL Creatinine (0.52-1.04) mg/dL AST (14-36) U/L Alkaline Phosphatase (38-126) U/L Troponin I 0.036 H* (0.000-0.034) ng/mL Total Protein (6.3-8.2) g/dL Albumin (3.5-5.0) g/dL Amylase (30-110) U/L Lipase (23-300) U/L Urine Appearance Cloudy H (Clear) Ur Leukocyte Esterase Large H (Negative) Urine WBC 16 H (0-5) /hpf Urine Bacteria Many H (None) /hpf Urine Mucus Rare H (None) /hpf Assessment and Plan Assessment: 83-year-old female with idiopathic liver cirrhosis, von Willebrand disease. Comes in due to abdominal distention which started to affect her breathing. Generalized weakness and falling on home. Patient has missed 2 sessions of paracentesis which is done weekly. Anticipated length of stay less than 2 midnights Hyperkalemia Hypervolemic Hyponatremia, secondary to advanced liver cirrhosis Idiopathic liver cirrhosis Abdominal ascites Chronic anemia Elevated troponins CK D stage III Incidental finding of right mid lung field new density versus healing fracture consider follow-up Plan Supportive care Hyperkalemia cocktail slower potassium, close monitoring of her potassium Discontinue normal saline IV fluids. Resume diuretics and Aldactone Close monitoring of electrolytes Fall precautions PT/OT evaluation quill worker consult for discharge planning Resume home meds Interventional radiology for paracentesis CODE STATUS: Full code DVT prophylaxis: Heparin subcu 3 times a day Discussed with: Patient, ER, RN Anticipated length of stay less than [address]: Pending clinical course A total of 75 minutes was spent on the care of this complex patient more than 50% of the time was spent in counseling and care coordination.
[2019-07-05] MEDS ORDERED: LEVOTHYROXINE 75 MCG TAB PO SCH (06:30)
[2019-07-05] MEDS ORDERED: PANTOPRAZOLE 40 MG/10 ML VIAL IV SCH (09:00)
[2019-07-05] MEDS ORDERED: SODIUM BICARBONATE TAB 650 MG TAB PO SCH (09:00)
[2019-07-05] MEDS ORDERED: FUROSEMIDE 40 MG TAB PO SCH (09:00)
[2019-07-05] MEDS ORDERED: SPIRONOLACTONE 25 MG TAB PO SCH (09:00)
[2019-07-05 09:29] LABS: Calcium 9.2 mg/dL (8.4-10.2); Potassium 5.9 mmol/L (3.5-5.1)
[2019-07-05] MEDS: HEPARIN SODIUM,PORCINE 5,000 UNIT/ML 1 ML VIAL SQ SCH ×3 (10:26→16:48)
[2019-07-05 12:37] LABS: Glucose,Whole Blood 108 mg/dL (75-99)
[2019-07-05] MEDS ORDERED: FUROSEMIDE 10 MG/ML 10 ML VIAL IV STA (13:36)
--- NOTE | 2019-07-05 14:00 | P.PN ---
Subjective Progress Note Date: 07/05/19 (delayed charting seen at 1030) Principal diagnosis: abdominal distension Patient is an 83-year-old female with idiopathic cirrhosis of the liver requiring frequent paracentesis, von Willebrand's disease, arthritis, hypothyroidism, and chronic lower extremity edema who presented to the emergency department secondary to abdominal distention. In the ER she underwent an extensive evaluation. On arrival her vital signs were within normal limits. Laboratory analysis showed a sodium of 126 and potassium of 7.4. Her creatinine was 1.58 (baseline 2). Her lipase was mildly elevated at 429. Urinalysis was benign. Her chest x-ray shows density over the right lung field that could be a healing rib fracture versus a pulmonary nodule. Initial EKG was unremarkable. She was treated for her hyperkalemia with insulin, glucose, albuterol, bicarbonate, and Kayexalate. Arrangements were made for admission. Of note patient reports that she missed 1 of her paracentesis appointments. She's been struggling with driving and getting out of the house. Her potassium remained elevated throughout the night requiring repeated insulin and glucose. Patient seen and examined at bedside. She reports she feels very tired. She denies any nausea or vomiting. She is not having any shortness of breath or chest pain. She denies any diarrhea. She reiterates that things have been very difficult she lives alone and is having to care for her self, she is having difficulty driving and getting to her doctor's appointments. She denies missing any of her medications or taking any extra medications. She states that she has had home health care in the past. Her recently in February. Objective - Vital Signs Vital signs: Vital Signs Temp 97.8 F 07/05/19 05:00 Pulse 73 07/05/19 10:21 Resp 16 07/05/19 10:21 BP 111/80 07/05/19 10:21 Pulse Ox 100 07/05/19 10:21 Intake & Output 07/04/19 07/05/19 07/05/19 18:59 06:59 18:59 Weight 53.524 kg - Exam General: ill appearing, mild distress, appears at stated age Derm: warm, dry Head: atraumatic, normocephalic, symmetric Eyes: EOMI, no lid lag, anicteric sclera Mouth: no lip lesion, mucus membranes moist Cardiovascular: S1S2 reg, no murmur, positive posterior tibial pulse bilateral, Lungs: Decreased breath sounds bilateral with rhonchi on right , no accessory muscle use Abdominal: soft, + distention, + fluid wave nontender to palpation, no guarding, no appreciable organomegaly Ext: no gross muscle atrophy, 3+ edema, no contractures Neuro: CN II-XI grossly intact, no focal neuro deficits Psych: Alert, oriented, appropriate affect - Labs CBC & Chem 7: 07/04/19 19:51 07/05/19 08:39 Labs: Abnormal Lab Results - Last 24 Hours (Table) 07/04/19 07/04/19 07/04/19 Range/Units 19:51 19:51 19:51 RBC 3.39 L (3.80-5.40) m/uL Hgb 10.3 L (11.4-16.0) gm/dL Hct 32.9 L (34.0-46.0) % PT 12.8 H (9.0-12.0) sec INR 1.3 H (<1.2) Sodium 126 L (137-145) mmol/L Potassium 7.4 H* (3.5-5.1) mmol/L Carbon Dioxide 16 L (22-30) mmol/L BUN 38 H (7-17) mg/dL Creatinine 1.58 H (0.52-1.04) mg/dL POC Glucose (mg/dL) (75-99) mg/dL AST 63 H (14-36) U/L Alkaline Phosphatase 168 H (38-126) U/L Troponin I (0.000-0.034) ng/mL Total Protein 6.0 L (6.3-8.2) g/dL Albumin 2.6 L (3.5-5.0) g/dL Amylase 113 H (30-110) U/L Lipase 429 H (23-300) U/L Urine Appearance (Clear) Ur Leukocyte Esterase (Negative) Urine WBC (0-5) /hpf Urine Bacteria (None) /hpf Urine Mucus (None) /hpf 07/04/19 07/04/19 07/04/19 Range/Units 19:51 21:17 21:27 RBC (3.80-5.40) m/uL Hgb (11.4-16.0) gm/dL Hct (34.0-46.0) % PT (9.0-12.0) sec INR (<1.2) Sodium (137-145) mmol/L Potassium 6.8 H* (3.5-5.1) mmol/L Carbon Dioxide (22-30) mmol/L BUN (7-17) mg/dL Creatinine (0.52-1.04) mg/dL POC Glucose (mg/dL) (75-99) mg/dL AST (14-36) U/L Alkaline Phosphatase (38-126) U/L Troponin I 0.036 H* (0.000-0.034) ng/mL Total Protein (6.3-8.2) g/dL Albumin (3.5-5.0) g/dL Amylase (30-110) U/L Lipase (23-300) U/L Urine Appearance Cloudy H (Clear) Ur Leukocyte Esterase Large H (Negative) Urine WBC 16 H (0-5) /hpf Urine Bacteria Many H (None) /hpf Urine Mucus Rare H (None) /hpf 07/05/19 07/05/19 07/05/19 Range/Units 03:02 08:39 12:36 RBC (3.80-5.40) m/uL Hgb (11.4-16.0) gm/dL Hct (34.0-46.0) % PT (9.0-12.0) sec INR (<1.2) Sodium 130 L (137-145) mmol/L Potassium 6.1 H* 5.9 H (3.5-5.1) mmol/L Carbon Dioxide 19 L (22-30) mmol/L BUN 38 H (7-17) mg/dL Creatinine 1.56 H (0.52-1.04) mg/dL POC Glucose (mg/dL) 108 H (75-99) mg/dL AST (14-36) U/L Alkaline Phosphatase (38-126) U/L Troponin I (0.000-0.034) ng/mL Total Protein (6.3-8.2) g/dL Albumin (3.5-5.0) g/dL Amylase (30-110) U/L Lipase (23-300) U/L Urine Appearance (Clear) Ur Leukocyte Esterase (Negative) Urine WBC (0-5) /hpf Urine Bacteria (None) /hpf Urine Mucus (None) /hpf Microbiology - Last 24 Hours (Table) 07/04/19 21:17 Urine Culture - Preliminary Urine,Clean Catch Assessment and Plan Assessment: Decompensated idiopathic cirrhosis -Paracentesis today -Aldactone on hold secondary to hyperkalemia -Lasix switched IV to help with diuresis -2 g sodium, 1.5 L fluid restriction diet Hyperkalemia -Undetermined etiology -Aldactone on hold -Improving -Status post Kayexalate and temporizing measures -Repeat potassium level at 3 PM Hyponatremia -Hypervolemic -Continue with diuresis -Follow sodium levels -Continue with fluid restriction Chronic kidney disease stage IV with non-anion gap metabolic acidosis -Continue with sodium bicarb -Slightly improving -Creatinine is better than baseline which is 2 Mildly elevated troponin -Suspect secondary to chronic kidney disease -No signs or symptoms consistent with coronary artery disease will not continue to trend troponin Anemia, mild and clinically insignificant -Follow CBC -Further outpatient evaluation Right-sided pulmonary abnormality -Healing rib fracture versus acute infiltrate -Repeat chest x-ray in a.m. Social stressors -Difficulty with right to doctor's appointment - recently Chronic: Hypertension Dyslipidemia Von Willebrand's disease DVT prophylaxis: Heparin Discussed with: patient, nursing Anticipated discharge: in 1-[address]: home with home health A total of 35 minutes was spent on the care of this complex patient more than 50% of the time was spent in counseling and care coordination.
[2019-07-05 16:34] LABS: Calcium 8.9 mg/dL (8.4-10.2); Potassium 5.3 mmol/L (3.5-5.1)
[2019-07-05] MEDS ORDERED: ALBUMIN HUMAN 25% 50 ML in EMPTY BAG 1 BAG IVPB ONE ×2 (17:00→18:00)
[2019-07-05 17:48] LABS: Glucose,Whole Blood 170 mg/dL (75-99)
[2019-07-05 20:08] VITALS: RESP 18
[2019-07-05] MEDS ORDERED: FUROSEMIDE 10 MG/ML 10 ML VIAL IV SCH (21:00)
[2019-07-05 21:24] VITALS: BP 127/67; PULSE 78; TEMP 97.5
--- NOTE | 2019-07-06 07:43 | US ---
Ultrasound-guided paracentesis. DATE OF EXAM: 07/05/2019 CLINICAL HISTORY: Ascites The procedure was discussed with the patient. The risks, complications, benefits, and alternatives we re discussed and any questions were answered. Informed consent was obtained. The patient was placed s upine on the ultrasound table and prepped and draped in the usual sterile fashion. All elements of maximal barrier technique were utilized. Under ultrasound guidance, access into the right lower quadrant was obtained, via the paracentesis catheter system and direct ultrasound guidanc e. Approximately 5.2 liters of straw-colored fluid was removed. The patient was stable throughout the pr ocedure and remained stable upon discharge from Department of Radiology. IMPRESSION: Successful paracentesis under ultrasound guidance.
--- NOTE | 2019-07-06 18:49 | P.DS ---
Providers Date of admission: 07/04/19 22:36 Expected date of discharge: 07/05/19 Attending physician: Dolores Krishnamurthy MD Primary care physician: Jakob Hauser [facility] Course: Diagnosis: Patient left AMA Decompensated idiopathic cirrhosis Hyperkalemia Hyponatremia Chronic kidney disease stage IV with non-anion gap metabolic acidosis Mildly elevated troponin Anemia, mild and not clinically significant Right-sided pulmonary abnormality Social stressors Hypertension Dyslipidemia 5 mg disease Hospital Course: Patient is an 83-year-old female with idiopathic cirrhosis of the liver requiring frequent paracentesis, von Willebrand's disease, arthritis, hypothyroidism, and chronic lower extremity edema who presented to the emergency department secondary to abdominal distention. In the ER she underwent an extensive evaluation. On arrival her vital signs were within normal limits. Laboratory analysis showed a sodium of 126 and potassium of 7.4. Her creatinine was 1.58 (baseline 2). Her lipase was mildly elevated at 429. Urinalysis was benign. Her chest x-ray shows density over the right lung field that could be a healing rib fracture versus a pulmonary nodule. Initial EKG was unremarkable. She was treated for her hyperkalemia with insulin, glucose, albuterol, bicarbonate, and Kayexalate. Arrangements were made for admission. Of note patient reports that she missed 1 of her paracentesis appointments. She's been struggling with driving and getting out of the house. Her potassium remained elevated throughout the night requiring repeated insulin and glucose. Her Lasix was resumed and her Aldactone was held. She underwent a paracentesis on 07/04 with removal of 5.2 L of fluid. She subsequently left AGAINST MEDICAL ADVICE. We were notified after the patient left the hospital. Patient Condition at Discharge: Undetermined Plan - Discharge Summary Discharge Rx Participant: Yes New Discharge Prescriptions: No Action Atorvastatin Calcium [Lipitor] 10 mg PO HS Levothyroxine Sodium [Synthroid] 150 mcg PO DAILY Multivitamins, Thera [Multivitamin (formulary)] 1 tab PO DAILY Furosemide [Lasix] 40 mg PO BID@0900,1600 #60 tab Spironolactone 25 mg PO DAILY Discharge Medication List Atorvastatin Calcium [Lipitor] 10 mg PO HS 07/12/18 [History] Levothyroxine Sodium [Synthroid] 150 mcg PO DAILY 07/12/18 [History] Multivitamins, Thera [Multivitamin (formulary)] 1 tab PO DAILY 07/18/18 [History] Furosemide [Lasix] 40 mg PO BID@0900,1600 #60 tab 10/06/18 [Rx] Spironolactone 25 mg PO DAILY 07/04/19 [History] Follow up Appointment(s)/Referral(s): Jakob Hauser [Primary Care Provider] - 1-2 days Discharge Disposition: Left Against Medical Advice
--- NOTE | 2019-07-07 12:39 | P.PN ---
Progress Note - Text Progress Note Date: 07/07/19 Spoke with TYRONE Villa regarding medical condition and blood work during her hospital stay. During our conversation it was noted that she had a UTI with E coli that results came back on today. I encouraged them to return to the hospital. However, it appears that the patient is unwilling to return at this time. I did call in Keflex 500mg BID for 5 days.
== END 2019-07-05 21:05 | disposition left against medical advice (07) | DRG 433 ==
LOC: EC 18:05 → 3SCARD 22:36
PROVIDERS: ADMIT Internal Medicine; ATTEND Internal Medicine
PROC: 0W9G3ZZ Drainage of Peritoneal Cavity, Percutaneous Approach (ICD-10-PCS; principal; 2019-07-05)
DX: K74.69 Other cirrhosis of liver (principal); N39.0 Urinary tract infection, site not specified; D68.0 Von Willebrand disease; E87.1 Hypo-osmolality and hyponatremia; E87.2 Acidosis; N17.9 Acute kidney failure, unspecified; N18.4 Chronic kidney disease, stage 4 (severe); R18.8 Other ascites; D63.1 Anemia in chronic kidney disease; B96.20 Unspecified Escherichia coli [E. coli] as the cause of diseases classified elsewhere; E03.9 Hypothyroidism, unspecified; E78.5 Hyperlipidemia, unspecified; E86.0 Dehydration; E87.5 Hyperkalemia; E87.70 Fluid overload, unspecified; I12.9 Hypertensive chronic kidney disease with stage 1 through stage 4 chronic kidney disease, or unspecified chronic kidney disease; R29.6 Repeated falls; M15.9 Polyosteoarthritis, unspecified; R79.89 Other specified abnormal findings of blood chemistry; Z11.59 Encounter for screening for other viral diseases; Z53.29 Procedure and treatment not carried out because of patient's decision for other reasons; Z63.4 Disappearance and death of family member; Z79.890 Hormone replacement therapy; Z79.899 Other long term (current) drug therapy; Z90.13 Acquired absence of bilateral breasts and nipples; Z86.73 Personal history of transient ischemic attack (TIA), and cerebral infarction without residual deficits; Z85.820 Personal history of malignant melanoma of skin; Z85.3 Personal history of malignant neoplasm of breast; Z88.6 Allergy status to analgesic agent; Z82.49 Family history of ischemic heart disease and other diseases of the circulatory system; Z83.2 Family history of diseases of the blood and blood-forming organs and certain disorders involving the immune mechanism; W19.XXXA Unspecified fall, initial encounter; Y92.009 Unspecified place in unspecified non-institutional (private) residence as the place of occurrence of the external cause
CPT/HCPCS: 36415; 49083; 71046; 80048; 80053; 81001; 82150; 83690; 83880; 84132; 84484; 85025; 85610; 85730; 87077; 87086; 87186; 87635; 93005; 94640; 96361; 96365; 96366; 96372; 96375; 96376; 99285

== ENCOUNTER 2019-07-15 09:30 | Day surgery (SDC) | payer MEDICARE, BC ==
[2019-07-15 09:47] VITALS: RESP 20; TEMP 98.1
[2019-07-15 10:14] LABS: Mean Platelet Volume 10.2; Platelet Count 182 k/uL (150-450)
[2019-07-15 10:26] LABS: INR 1.3 (<1.2); Prothrombin Time 13.4 sec (9.0-12.0)
[2019-07-15] MEDS: ALBUMIN HUMAN 25% 50 ML in EMPTY BAG 1 BAG IVPB SCH ×3 (11:05→11:46)
[2019-07-15 11:44] VITALS: BP 107/53
[2019-07-15 11:48] VITALS: PULSE 71
--- NOTE | 2019-07-15 13:02 | US ---
Ultrasound-guided paracentesis. DATE OF EXAM: 07/15/2019 CLINICAL HISTORY: Ascites The procedure was discussed with the patient. The risks, complications, benefits, and alternatives we re discussed and any questions were answered. Informed consent was obtained. The patient was placed s upine on the ultrasound table and prepped and draped in the usual sterile fashion. All elements of maximal barrier technique were utilized. Under ultrasound guidance, access into the right lower quadrant was obtained, via the paracentesis catheter system and direct ultrasound guidanc e. Approximately 4.5 liters of straw-colored fluid was removed. The patient was stable throughout the pr ocedure and remained stable upon discharge from Department of Radiology. IMPRESSION: Successful paracentesis under ultrasound guidance.
== END 2019-07-15 12:05 | disposition home or self-care (01) ==
LOC: RADPROMAIN 09:30
PROVIDERS: ATTEND Internal Medicine Gastroenterology
DX: R18.8 Other ascites (principal)
CPT/HCPCS: 82140; 82565; 85049; 85610; 36415; 49083; P9047

== ENCOUNTER 2019-07-18 11:38 | Inpatient (IN) | payer MEDICARE, BC ==
[2019-07-18] MEDS ORDERED: SODIUM CHLORIDE 0.9% 1,000 ML IV ONE (11:59)
[2019-07-18] MEDS ORDERED: FAMOTIDINE 20 MG/2 ML VIAL IV STA (12:00)
[2019-07-18] MEDS ORDERED: ONDANSETRON 4 MG/2 ML VIAL IVP STA (12:00)
--- NOTE | 2019-07-18 12:06 | ED ---
General Adult HPI - General Chief complaint: Recheck/Abnormal Lab/Rx Stated complaint: Altered Mental Time Seen by Provider: 07/18/19 11:45 Source: patient, RN notes reviewed Mode of arrival: ambulatory Limitations: no limitations - History of Present Illness Initial comments: Patient is a pleasant 83-year-old female presenting to the emergency Department with complaints of nausea and vomiting. Onset of symptoms was a couple of days ago. Patient was reportedly recently diagnosed with urinary tract infection however has not started antibiotics yet. There has been some reported confusion. Patient does have ascites. Patient states this is fairly normal for her. Patient states she had several liters removed around 5 days ago. Patient states her leg edema is also fairly chronic for her. No abdominal pain. Patient states she does feel slightly short of breath however states this is from her nausea and upset stomach. - Related Data Home Medications Medication Instructions Recorded Confirmed Atorvastatin Calcium [Lipitor] 10 mg PO HS 07/12/18 07/15/19 Levothyroxine Sodium [Synthroid] 150 mcg PO DAILY 07/12/18 07/15/19 Multivitamins, Thera [Multivitamin 1 tab PO DAILY 07/18/18 07/15/19 (formulary)] Spironolactone 25 mg PO DAILY 07/04/19 07/15/19 Previous Rx's Medication Instructions Recorded Furosemide [Lasix] 40 mg PO BID@0900,1600 #60 tab 10/06/18 Allergies Allergy/AdvReac Type Severity Reaction Status Date / Time aspirin AdvReac Unknown Verified 07/18/19 13:38 Review of Systems ROS Statement: Those systems with pertinent positive or pertinent negative responses have been documented in the HPI. ROS Other: All systems not noted in ROS Statement are negative. Constitutional: Denies: fever Eyes: Denies: eye pain ENT: Denies: ear pain Respiratory: Reports: as per HPI. Denies: cough Cardiovascular: Denies: chest pain Endocrine: Reports: fatigue Gastrointestinal: Reports: nausea, vomiting. Denies: abdominal pain Genitourinary: Reports: as per HPI Musculoskeletal: Denies: back pain Skin: Denies: rash Neurological: Reports: confusion Past Medical History Past Medical History: Cancer, Hyperlipidemia, Hypertension, Osteoarthritis (OA), Thyroid Disorder Additional Past Medical History / Comment(s): Bilateral breast cancer with mastectomies (years apart), facial melanoma, Von Willebrand disease, aortic and tricuspid murmur, arthritis in multiple joints, hypothyroid, lower leg edema, ascites Last Myocardial Infarction Date:: unknown History of Any Multi-Drug Resistant Organisms: None Reported Past Surgical History: Breast Surgery, Hernia Repair Additional Past Surgical History / Comment(s): BILATERAL MASTECTOMY, MELANOMA removal from face with reconstruction, multiple paracenetesis, D & C, punch biopsy Past Anesthesia/Blood Transfusion Reactions: No Reported Reaction Past Psychological History: Depression Smoking Status: Never smoker Past Alcohol Use History: None Reported Past Drug Use History: None Reported - Past Family History Father Additional Family Medical History / Comment(s): Father had heart disease and of this at the age of 73 yrs. Mother Family Medical History: Blood Disorder, Hypertension Additional Family Medical History / Comment(s): Von Willebrand disease. Mother at the age of 88 or 89yrs. Brother(s) Family Medical History: Blood Disorder Additional Family Medical History / Comment(s): Brother of Von Willebrand. General Exam Limitations: no limitations General appearance: alert, in no apparent distress Head exam: Present: normocephalic Eye exam: Present: normal appearance, PERRL ENT exam: Present: normal oropharynx Neck exam: Present: normal inspection Respiratory exam: Present: normal lung sounds bilaterally Cardiovascular Exam: Present: regular rate, normal rhythm GI/Abdominal exam: Present: soft, distended (Mild to moderate distention), normal bowel sounds. Absent: tenderness, guarding, rebound, rigid, pulsatile mass Extremities exam: Present: pedal edema (+2 bilaterally). Absent: calf tenderness Neurological exam: Present: alert Expanded Patient oriented to: Present: person, place. Absent: time Speech: Present: fluid speech Motor strength exam: RUE: 5, LUE: 5, RLE: 5, LLE: 5 Psychiatric exam: Present: normal affect, normal mood Skin exam: Present: normal color Course Vital Signs 07/18/19 11:42 Temperature 98.2 F Pulse Rate 69 Respiratory 22 Rate Blood Pressure 113/66 O2 Sat by Pulse 100 Oximetry EKG Findings - EKG Comments: EKG Findings:: Sinus rhythm at 72. Sinus arrhythmia. MT 174. QRS 94. QT 366. QTc 400. Normal axis. Normal QRS. No acute ST change. Medical Decision Making - Medical Decision Making Patient reevaluated and updated. [facility] physician group paged covering for Dr. Genao. Case was discussed with Dr. carrillo, who will admit. - Lab Data Result diagrams: 07/18/19 12:24 07/18/19 12:24 Lab Results 07/18/19 07/18/19 07/18/19 Range/Units 12:24 12:24 12:24 WBC 10.1 (3.8-10.6) k/uL RBC 3.44 L (3.80-5.40) m/uL Hgb 10.1 L (11.4-16.0) gm/dL Hct 32.9 L (34.0-46.0) % MCV 95.6 (80.0-100.0) fL MCH 29.4 (25.0-35.0) pg MCHC 30.8 L (31.0-37.0) g/dL RDW 14.8 (11.5-15.5) % Plt Count 181 (150-450) k/uL Neutrophils % 84 % Lymphocytes % 7 % Monocytes % 7 % Eosinophils % 0 % Basophils % 0 % Neutrophils # 8.5 H (1.3-7.7) k/uL Lymphocytes # 0.7 L (1.0-4.8) k/uL Monocytes # 0.7 (0-1.0) k/uL Eosinophils # 0.0 (0-0.7) k/uL Basophils # 0.0 (0-0.2) k/uL Hypochromasia Slight PT 12.5 H (9.0-12.0) sec INR 1.2 H (<1.2) APTT 29.3 (22.0-30.0) sec Sodium 126 L (137-145) mmol/L Potassium 5.5 H (3.5-5.1) mmol/L Chloride 102 (98-107) mmol/L Carbon Dioxide 16 L (22-30) mmol/L Anion Gap 8 mmol/L BUN 75 H (7-17) mg/dL Creatinine 2.87 H (0.52-1.04) mg/dL Est GFR (CKD-EPI)AfAm 17 (>60 ml/min/1.73 sqM) Est GFR (CKD-EPI)NonAf 15 (>60 ml/min/1.73 sqM) Glucose 123 H (74-99) mg/dL POC Glucose (mg/dL) (75-99) mg/dL POC Glu Crepe Machine Operator ID Plasma Lactic Acid Hernan (0.7-2.0) mmol/L Calcium 9.3 (8.4-10.2) mg/dL Total Bilirubin 1.1 (0.2-1.3) mg/dL AST 52 H (14-36) U/L ALT 29 (4-34) U/L Alkaline Phosphatase 227 H (38-126) U/L Ammonia (<30) umol/L Troponin I (0.000-0.034) ng/mL NT-Pro-B Natriuret Pep pg/mL Total Protein 5.5 L (6.3-8.2) g/dL Albumin 2.3 L (3.5-5.0) g/dL Urine Color Urine Appearance (Clear) Urine pH (5.0-8.0) Ur Specific Moore (1.001-1.035) Urine Protein (Negative) Urine Glucose (UA) (Negative) Urine Ketones (Negative) Urine Blood (Negative) Urine Nitrite (Negative) Urine Bilirubin (Negative) Urine Urobilinogen (<2.0) mg/dL Ur Leukocyte Esterase (Negative) 07/18/19 07/18/19 07/18/19 Range/Units 12:24 12:24 12:24 WBC (3.8-10.6) k/uL RBC (3.80-5.40) m/uL Hgb (11.4-16.0) gm/dL Hct (34.0-46.0) % MCV (80.0-100.0) fL MCH (25.0-35.0) pg MCHC (31.0-37.0) g/dL RDW (11.5-15.5) % Plt Count (150-450) k/uL Neutrophils % % Lymphocytes % % Monocytes % % Eosinophils % % Basophils % % Neutrophils # (1.3-7.7) k/uL Lymphocytes # (1.0-4.8) k/uL Monocytes # (0-1.0) k/uL Eosinophils # (0-0.7) k/uL Basophils # (0-0.2) k/uL Hypochromasia PT (9.0-12.0) sec INR (<1.2) APTT (22.0-30.0) sec Sodium (137-145) mmol/L Potassium (3.5-5.1) mmol/L Chloride (98-107) mmol/L Carbon Dioxide (22-30) mmol/L Anion Gap mmol/L BUN (7-17) mg/dL Creatinine (0.52-1.04) mg/dL Est GFR (CKD-EPI)AfAm (>60 ml/min/1.73 sqM) Est GFR (CKD-EPI)NonAf (>60 ml/min/1.73 sqM) Glucose (74-99) mg/dL POC Glucose (mg/dL) (75-99) mg/dL POC Glu Crepe Machine Operator ID Plasma Lactic Acid Hernan 2.2 H* (0.7-2.0) mmol/L Calcium (8.4-10.2) mg/dL Total Bilirubin (0.2-1.3) mg/dL AST (14-36) U/L ALT (4-34) U/L Alkaline Phosphatase (38-126) U/L Ammonia <9 (<30) umol/L Troponin I 0.029 (0.000-0.034) ng/mL NT-Pro-B Natriuret Pep 1050 pg/mL Total Protein (6.3-8.2) g/dL Albumin (3.5-5.0) g/dL Urine Color Urine Appearance (Clear) Urine pH (5.0-8.0) Ur Specific Moore (1.001-1.035) Urine Protein (Negative) Urine Glucose (UA) (Negative) Urine Ketones (Negative) Urine Blood (Negative) Urine Nitrite (Negative) Urine Bilirubin (Negative) Urine Urobilinogen (<2.0) mg/dL Ur Leukocyte Esterase (Negative) 07/18/19 07/18/19 Range/Units 13:11 13:20 WBC (3.8-10.6) k/uL RBC (3.80-5.40) m/uL Hgb (11.4-16.0) gm/dL Hct (34.0-46.0) % MCV (80.0-100.0) fL MCH (25.0-35.0) pg MCHC (31.0-37.0) g/dL RDW (11.5-15.5) % Plt Count (150-450) k/uL Neutrophils % % Lymphocytes % % Monocytes % % Eosinophils % % Basophils % % Neutrophils # (1.3-7.7) k/uL Lymphocytes # (1.0-4.8) k/uL Monocytes # (0-1.0) k/uL Eosinophils # (0-0.7) k/uL Basophils # (0-0.2) k/uL Hypochromasia PT (9.0-12.0) sec INR (<1.2) APTT (22.0-30.0) sec Sodium (137-145) mmol/L Potassium (3.5-5.1) mmol/L Chloride (98-107) mmol/L Carbon Dioxide (22-30) mmol/L Anion Gap mmol/L BUN (7-17) mg/dL Creatinine (0.52-1.04) mg/dL Est GFR (CKD-EPI)AfAm (>60 ml/min/1.73 sqM) Est GFR (CKD-EPI)NonAf (>60 ml/min/1.73 sqM) Glucose (74-99) mg/dL POC Glucose (mg/dL) 125 H (75-99) mg/dL POC Glu Crepe Machine Operator ID Bettye Vang Plasma Lactic Acid Hernan (0.7-2.0) mmol/L Calcium (8.4-10.2) mg/dL Total Bilirubin (0.2-1.3) mg/dL AST (14-36) U/L ALT (4-34) U/L Alkaline Phosphatase (38-126) U/L Ammonia (<30) umol/L Troponin I (0.000-0.034) ng/mL NT-Pro-B Natriuret Pep pg/mL Total Protein (6.3-8.2) g/dL Albumin (3.5-5.0) g/dL Urine Color Yellow Urine Appearance Clear (Clear) Urine pH 5.0 (5.0-8.0) Ur Specific Moore 1.015 (1.001-1.035) Urine Protein Negative (Negative) Urine Glucose (UA) Negative (Negative) Urine Ketones Trace H (Negative) Urine Blood Negative (Negative) Urine Nitrite Negative (Negative) Urine Bilirubin Negative (Negative) Urine Urobilinogen 4.0 (<2.0) mg/dL Ur Leukocyte Esterase Negative (Negative) - Radiology Data Radiology results: image reviewed (Computed tomography scan of the brain shows 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 Degenerative changes. Two-view chest x- ray shows no acute process. Pulmonary nodule versus nipple shadow.) Disposition Clinical Impression: Ascites, Dehydration, Mass of pineal region Disposition: ADMITTED IP TO THIS HOSP Is patient prescribed a controlled substance at d/c from ED?: No Referrals: Jakob Hauser [Primary Care Provider] - 1-2 days Decision Time: 13:53
[2019-07-18 12:40] LABS: Basophils % (A) 0 %; Eosinophils % (A) 0 %; HCT 32.9 % (34.0-46.0); HGB 10.1 gm/dL (11.4-16.0); Hypochromasia Slight; Lymphocytes # (A) 0.7 k/uL (1.0-4.8); Lymphocytes % (A) 7 %; MCH 29.4 pg (25.0-35.0); MCHC 30.8 g/dL (31.0-37.0); MCV 95.6 fL (80.0-100.0); Mean Platelet Volume 10.1; Monocytes # (A) 0.7 k/uL (0-1.0); Monocytes % (A) 7 %; Neutrophils # (A) 8.5 k/uL (1.3-7.7); Neutrophils % (A) 84 %; Platelet Count 181 k/uL (150-450); RBC 3.44 m/uL (3.80-5.40); RDW 14.8 % (11.5-15.5); WBC 10.1 k/uL (3.8-10.6)
[2019-07-18 12:49] LABS: Albumin 2.3 g/dL (3.5-5.0); Calcium 9.3 mg/dL (8.4-10.2); INR 1.2 (<1.2); Partial Thromboplastin Time 29.3 sec (22.0-30.0); Potassium 5.5 mmol/L (3.5-5.1); Prothrombin Time 12.5 sec (9.0-12.0); Total Bilirubin 1.1 mg/dL (0.2-1.3); Total Protein 5.5 g/dL (6.3-8.2)
--- NOTE | 2019-07-18 13:01 | XR ---
EXAMINATION TYPE: XR chest 2V DATE OF EXAM: 07/18/2019 COMPARISON: 07/04/2019 HISTORY: Altered mental status TECHNIQUE: Frontal and lateral views of the chest are obtained. FINDINGS: There is no focal air space opacity, pleural effusion, or pneumothorax seen. Mediastinum i s shifted to the right secondary to patient positioning. The cardiac silhouette size is within normal limits. Right-sided 1.5 cm density has shifted and likely represents an overlying nipple shadow palomo brian other etiologies such as fracture deformity or pulmonary nodule remains a possibility. Bridging a nterior osteophytes suggesting diffuse idiopathic skeletal hyperostosis. There is diffuse osseous dem ineralization. IMPRESSION: No acute cardiopulmonary process. Redemonstration of a possible pulmonary nodule versus nipple shadow or healing right rib fracture. Follow-up nonemergent repeat chest x-ray with nipple mar ker placement or CT thorax could further evaluate this finding.
[2019-07-18 13:07] LABS: Lactic Acid, Venous 2.2 mmol/L (0.7-2.0)
--- NOTE | 2019-07-18 13:12 | CT ---
EXAMINATION TYPE: CT brain wo con DATE OF EXAM: 07/18/2019 COMPARISON: None HISTORY: altered mental status CT DLP: 1099.4 mGycm Automated exposure control for dose reduction was used. FINDINGS: There is generalized degenerative change. Low-attenuation in the white matter is nonspecific. There i s a hyperdense mass in the pineal gland region measuring approximately 1.2 cm. No midline shift or mass effect. Intracranial atherosclerotic changes are noted. Hyperostosis of the calvarium seen. IMPRESSION: 1. No acute hemorrhage or mass effect. 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 Recommend MRI. 2. Degenerative and remote ischemic white matter change.
[2019-07-18 13:22] LABS: Glucose,Whole Blood 125 mg/dL (75-99)
[2019-07-18 13:28] LABS: Appearance,Urine Clear (Clear); Bilirubin,Urine Negative (Negative); Blood,Urine Negative (Negative); Color,Urine Yellow; Glucose,Urine (UA) Negative (Negative); Ketones,Urine Trace (Negative); Leukocyte Esterase,Urine Negative (Negative); Nitrite,Urine Negative (Negative); Protein,Urine Negative (Negative); Specific Gravity,Urine 1.015 (1.001-1.035)
[2019-07-18] MEDS ORDERED: ONDANSETRON 4 MG/2 ML VIAL IVP PRN (13:57)
[2019-07-18] MEDS ORDERED: NALOXONE 0.4 MG/ML 1 ML VIAL IV PRN (13:57)
[2019-07-18] MEDS ORDERED: SODIUM CHLORIDE 0.9% 1,000 ML IV SCH (14:00)
[2019-07-18] MEDS ORDERED: ACETAMINOPHEN TAB 325 MG TAB PO PRN (15:41)
[2019-07-18] MEDS ORDERED: MELATONIN 3 MG TABLET PO PRN (15:41)
--- NOTE | 2019-07-18 16:54 | P.HPIM ---
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 In the ER she underwent an extensive evaluation. Her initial vital signs were within normal limits. Hemoglobin was 10.1 and near baseline, INR 1.2, sodium 126, potassium 5.5, carbon dioxide 16, BUN 75, creatinine 2.87, lactic acid 2.2, ammonia was 227, troponin 0.0-9, and BNP 1050. Urinalysis is negative. 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 CXR showed pulm nodule possible nipple vs shadowing density vs healing rib fracture. She was given Pepcid, Zofran, and IV fluids in the emergency department. Arrangements are made for admission. Patient seen and examined in the emergency department. On entering the room she is fixated on receiving something to eat. She keeps asking for finger food. When I asked her to describe what she met by finger food she states the plate with food that she can pick at. I asked her to explain about her nausea and vomiting. She then tells me she is no longer nauseous and she doesn't think she's been vomiting. I asked if she ate anything since her nausea has resolved and she said no. I explained we could start with some water and Jell-O and see how she tolerates that, she is insistent that this will not help that she knows whether she is going to throw up or not. She is unable to tell me how long she has been having nausea or vomiting. She does state that she has not been eating very much for the last 3-4 days. She tells me that she was seen by Dr. Genao on Thursday, I then informed her that today was Thursday, she then states that she talked to him over the weekend. She was able to tell me that she had paracentesis last week but was unclear of the day. She then is focused on how she needs help. When asked what type of help she needs she keeps reiterating "to do things". She is unable to explain what she needs done or she needs help at home. She then keeps saying that she needs medication to "make her balance". She starts talking with the Keflex which I prescribed for her in late June. She states she is out of this medication explained that likely need she finished the course of antibiotics and it is no longer needed. She is unable to process this information and keeps stating she needs something to balance her, she then states "if I don't think my medication they're going to court order me to take by medication". She is unable to answer further questions and keeps referring back to food. I asked her if it was okay to call her POA Sadaf for further information and she did agree. She also cut stating that she "needs help". She is unable to tell me how she has been getting her medications or food. I had a lengthy conversation with her power of associate attorney Sadaf [phone]. She relates that since Rene left here on 07/03 she has had continued decline. I had spoken with Chrissy on 07/06 and sent over an order for Keflex secondary to urinary tract infection. Apparently this medication was picked up and when they went to deliver it to [facility]ene she would not let anyone into her house and they put it on the front porch. She was very angry and upset and distraught stating. She then continued to not take the pills. 9 days ago they called the police to do well check. At that point in time the pills were still on the front porch (40 later) more brought into the house. Then 7 days ago Rene called and stated that all of her medicine was gone, it appeared to the family that she was talking about complex that was on clear. At that point in time she was noted to still have a change in her personality being more upset, questioning, and angry. For the next 3 days she seemed to do better with more appropriate mentation, reactions to information, even called and apologized for her earlier behavior. She did undergo paracentesis on 07/14. At that point time she was making comments about feeling depressed and not wanting to live. She was seen by perinatal social worker and Sadaf was called. She did not have any intent on harming herself and she was therefore sent home. Apparently over the last 3 days she has again become more confused as well as argumentative. Family reports that they've been seeing these large personality changes where she is upset and angry and not herself for approximately last month. Today women seeking with family she was noting people being in her house then Cypress's hallucination. When they arrived there she had underwear on her front porch that had been soiled. She also has had minimal food intake and has had decrea sed appetite. She reported the family only having one can of soup over 3 days. They report when they last did grocery shopping for her (which is done over the Internet) she wanted soda and a few things but not much. They have been trying to work with her and getting into an assisted living and selling her house. She was supposed to go and 40 assisted living today. They're unsure she has been taking her medications appropriately, caring for herself, and her current living conditions. She has repeatedly refused to let people in the house. They state her personality started changing approximately 6 months ago after she lost her . Review of Systems Unable to obtain full review of systems secondary to patient's inability to cooperate and medical history gathering. Past Medical History Past Medical History: Blood Disorder, Cancer, Hyperlipidemia, Hypertension, Liver Disease, Osteoarthritis (OA), Thyroid Disorder Additional Past Medical History / Comment(s): Pt recently admitted to [facility] on 07/04/19 with decompensated idiopathic cirrhosis/mildly elevated troponin/R pulmonary abnormality/CKD stage IV/anemia/hypokalemia/hypernatremia. Liver cirrhosis with multiple paracentesis, bilateral breast cancer with mastectomies (years apart), facial melanoma with surgery, Von Willebrand disease, aortic and tricuspid murmur, arthritis in multiple joints, hypothyroid, lower leg edema Last Myocardial Infarction Date:: unknown History of Any Multi-Drug Resistant Organisms: None Reported Past Surgical History: Breast Surgery, Hernia Repair Additional Past Surgical History / Comment(s): Bilateral mastectomies, melanoma removed from face with reconstructive surgery, multiple paracentesis, umbilical hernia repair, D&C Past Anesthesia/Blood Transfusion Reactions: No Reported Reaction Smoking Status: Never smoker - Past Family History Father Additional Family Medical History / Comment(s): Father had heart disease and of this at the age of 73 yrs. Mother Family Medical History: Blood Disorder, Hypertension Additional Family Medical History / Comment(s): Von Willebrand disease. Mother at the age of 88 or 89yrs. Brother(s) Family Medical History: Blood Disorder Additional Family Medical History / Comment(s): Brother of Von Willebrand. Medications and Allergies Home Medications Medication Instructions Recorded Confirmed Type Atorvastatin Calcium [Lipitor] 10 mg PO HS 07/12/18 07/18/19 History Levothyroxine Sodium [Synthroid] 150 mcg PO DAILY 07/12/18 07/18/19 History Multivitamins, Thera [Multivitamin 1 tab PO DAILY 07/18/18 07/18/19 History (formulary)] Spironolactone 25 mg PO DAILY 07/04/19 07/18/19 History Furosemide [Lasix] 40 mg PO BID 07/18/19 07/18/19 History Allergies Allergy/AdvReac Type Severity Reaction Status Date / Time aspirin AdvReac Unknown Verified 07/18/19 13:38 Physical Exam Osteopathic Statement: *. No significant issues noted on an osteopathic structural exam other than those noted in the History and Physical/Consult. Vitals: Vital Signs Temp Pulse Resp BP Pulse Ox 07/18/19 13:49 78 20 108/55 96 07/18/19 12:49 20 07/18/19 11:49 20 07/18/19 11:42 98.2 F 69 22 113/66 100 Intake and Output 07/18/19 07/18/19 07/18/19 06:59 14:59 22:59 Other: Weight 53.524 kg General: ill appearing, no distress, appears at stated age, temporal wasting, muscle wasting, disheveled Derm: no unusual rashes/lesions no unusual ecchymoses, warm, dry Head: atraumatic, normocephalic, symmetric Eyes: EOMI, no lid lag, anicteric sclera, pupils equal round reactive to light ENT: Nose and ears atraumatic, no thrush, + pharyngeal erythema without exudates Neck: No thyromegaly, no cervical lymphadenopathy, trachea midline, supple Mouth: no lip lesion, mucus membranes moist Cardiovascular: S1S2 reg, Grade 3 murmur, positive posterior tibial pulse bilateral, 2+ edema, capillary refill less than 2 seconds Lungs: Decreased bs bilateral, no rhonchi, no rales , no accessory muscle use Abdominal: + distended and tympanic soft, nontender to palpation, no guarding, no appreciable organomegaly, normal bowel sounds Ext: + gross muscle atrophy, muscle strength 4 out of 5 in all 4 extremities grossly, no contractures, Neuro: CN II-XI grossly intact, light touch intact all 4 extremities, finger to nose within normal limits, Psych: Alert, oriented to self and being in a hospital and year, not date, angry, unable to reason Results CBC & Chem 7: 07/18/19 12:24 07/18/19 12:24 Labs: Abnormal Lab Results - Last 24 Hours (Table) 07/18/19 07/18/19 07/18/19 Range/Units 12:24 12:24 12:24 RBC 3.44 L (3.80-5.40) m/uL Hgb 10.1 L (11.4-16.0) gm/dL Hct 32.9 L (34.0-46.0) % MCHC 30.8 L (31.0-37.0) g/dL Neutrophils # 8.5 H (1.3-7.7) k/uL Lymphocytes # 0.7 L (1.0-4.8) k/uL PT 12.5 H (9.0-12.0) sec INR 1.2 H (<1.2) Sodium 126 L (137-145) mmol/L Potassium 5.5 H (3.5-5.1) mmol/L Carbon Dioxide 16 L (22-30) mmol/L BUN 75 H (7-17) mg/dL Creatinine 2.87 H (0.52-1.04) mg/dL Glucose 123 H (74-99) mg/dL POC Glucose (mg/dL) (75-99) mg/dL Plasma Lactic Acid Hernan (0.7-2.0) mmol/L AST 52 H (14-36) U/L Alkaline Phosphatase 227 H (38-126) U/L Total Protein 5.5 L (6.3-8.2) g/dL Albumin 2.3 L (3.5-5.0) g/dL Urine Ketones (Negative) 07/18/19 07/18/19 07/18/19 Range/Units 12:24 13:11 13:20 RBC (3.80-5.40) m/uL Hgb (11.4-16.0) gm/dL Hct (34.0-46.0) % MCHC (31.0-37.0) g/dL Neutrophils # (1.3-7.7) k/uL Lymphocytes # (1.0-4.8) k/uL PT (9.0-12.0) sec INR (<1.2) Sodium (137-145) mmol/L Potassium (3.5-5.1) mmol/L Carbon Dioxide (22-30) mmol/L BUN (7-17) mg/dL Creatinine (0.52-1.04) mg/dL Glucose (74-99) mg/dL POC Glucose (mg/dL) 125 H (75-99) mg/dL Plasma Lactic Acid Hernan 2.2 H* (0.7-2.0) mmol/L AST (14-36) U/L Alkaline Phosphatase (38-126) U/L Total Protein (6.3-8.2) g/dL Albumin (3.5-5.0) g/dL Urine Ketones Trace H (Negative) Chest x-ray: report reviewed CT Scan - head: report reviewed Thrombosis Risk Factor Assmnt - DVT/VTE Prophylaxis DVT/VTE Prophylaxis: Pharmacologic Prophylaxis ordered - Choose All That Apply Any of the Below Risk Factors Present?: Yes Each Factor Represents 1 point: Swollen legs (current) Other Risk Factors: Yes Each Risk Factor Represents 2 Points: Malignancy Each Risk Factor Represents 3 Points: Age 75 years or older Other congenital or acquired thrombophilia - If yes, enter type in comment: No Thrombosis Risk Factor Assessment Total Risk Factor Score: 6 Thrombosis Risk Factor Assessment Level: High Risk Assessment and Plan Assessment: 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 due to dehydration with hyperkalemia and anion gap metabolic acidosis - Caseline cr ~2 - hold lasix and aldactone, gentle IV fluids - Monitor ascities closely - Avoid additional nephrotoxic agents - renal ultrasound - consult nephro - recheck labs at 1999 Hypovolemic hyponatremia - IVF, hold diuretics - recheck at 1999 - has a chronic component - baseline about 130 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 appears resolved - antiemetics emetics - advance diet as tolerated - CT scan if symptoms persist Cirrhosis on recurrent paracentesis - per family patient did not want recurrent paracentesis any longer and was considering TIPS - Diuretics on hold - Monitor for recurrent ascities Right lung nodule - CXR with nipple markers in AM, if still present then CT chest Protein calorie malnutirition - consider dietitian consult once tolerating diet Suspect Depression - Psych consult Chronic conditions: HTN HLD Von Willebrand disease Arthritis Hypothyroidism The patient is admitted with an anticipated greater than 2 midnight stay for evaluation of nausea and vomiting. Surrogate decision-maker: Sadaf Murrieta CODE STATUS:Full DVT prophylaxis: SCDs Discussed with: Patient, nursing, Social work, POA, ED physician Anticipated discharge date: 2-[address]: SNF VS [facility] A total of 75 minutes was spent on the care of this complex patient more than 50% of the time was spent in counseling and care coordination.
[2019-07-18] MEDS: ATORVASTATIN 10 MG TAB PO SCH (19:55)
[2019-07-19] MEDS ORDERED: HALOPERIDOL LACTATE 5 MG/ML 1 ML VIAL IM PRN (01:22)
[2019-07-19 06:42] LABS: HCT 29.3 % (34.0-46.0); HGB 9.4 gm/dL (11.4-16.0); Hypochromasia Slight; MCH 30.7 pg (25.0-35.0); MCV 96.1 fL (80.0-100.0); Mean Platelet Volume 10.1; Platelet Count 170 k/uL (150-450); RBC 3.05 m/uL (3.80-5.40); RDW 14.8 % (11.5-15.5); WBC 10.8 k/uL (3.8-10.6)
[2019-07-19 06:45] LABS: INR 1.3 (<1.2); Prothrombin Time 13.4 sec (9.0-12.0)
[2019-07-19 06:58] LABS: Calcium 8.9 mg/dL (8.4-10.2); Magnesium 2.1 mg/dL (1.6-2.3); Phosphorus 4.6 mg/dL (2.5-4.5); Potassium 5.4 mmol/L (3.5-5.1); Total Bilirubin 1.1 mg/dL (0.2-1.3); Total Protein 5.2 g/dL (6.3-8.2)
[2019-07-19 08:22] LABS: T4, Free (Free Thyroxine) 2.11 ng/dL (0.78-2.19)
[2019-07-19] MEDS: MULTIVITAMINS, THERA 1 EACH TAB PO SCH (08:32)
[2019-07-19] MEDS: LEVOTHYROXINE 75 MCG TAB PO SCH (08:32)
--- NOTE | 2019-07-19 08:47 | US ---
EXAMINATION TYPE: US renals and bladder DATE OF EXAM: 07/19/2019 COMPARISON: CT dated 09/30/2018 CLINICAL HISTORY: ERWIN. EXAM MEASUREMENTS: Right Kidney: 9.8 x 4.4 x 4.6 cm Left Kidney: 9.3 x 4.4 x 4.4 cm Moderate abdominal ascites partially visualized. Cirrhotic morphology of the liver incidentally seen. Right Kidney: No hydronephrosis or masses seen Left Kidney: Partially obscured by overlying bowel gas . Hypoechoic left renal lesion measures 1.5 cm . Bladder: wnl as seen, partially distended There is no evidence for hydronephrosis at this point in time. No nephrolithiasis is seen. IMPRESSION: 1. No hydronephrosis of either kidney although the left kidney is partially obscured by bowel gas. 2. Hypoechoic left renal lesion measures 1.5 cm and was not seen on the prior CT of 09/30/2018. Theref ore follow-up CT abdomen with contrast recommended for further evaluation. 3. Partially visualized moderate abdominal ascites and cirrhotic morphology of the liver.
[2019-07-19] MEDS: PANTOPRAZOLE 40 MG/10 ML VIAL IV SCH (08:56)
[2019-07-19] MEDS: HALOPERIDOL LACTATE 5 MG/ML 1 ML VIAL IVP PRN ×2 (08:56→18:10)
--- NOTE | 2019-07-19 10:23 | P.NPCON ---
History of Present Illness - Reason for Consult acute renal failure, chronic renal failure - History of Present Illness Reason for consultation: Acute kidney injury on chronic kidney disease History of present illness: Patient is a 83-year-old female seen in utilization for acute kidney injury on chronic kidney disease. Patient has chronic kidney disease stage III with recent baseline creatinine in the range of 1.5-2. Creatinine on admission was 2.87 and is 2.77 today. Patient is quite confused and agitated. She did receive Haldol this morning. Currently not a reliable historian. Patient prese nts from home due to nausea and vomiting. This seems to have resolved. Patient has history of idiopathic liver cirrhosis and has undergone multiple paracentesis in the past. Currently her abdomen is quite distended. She also has edema in her lower extremities. It is noted from the chart that the patient has had large personality changes in the last month or so. Her last paracentesis was on 07/15/2019 with 4.5 L drained. She has been waiting but does not have a Sanon catheter. UA is benign. No evidence of hydronephrosis noted on kidney ultrasound. Ascites was noted on the ultrasound. Hemodynamically she stable. She was started on IV fluids on admission but due to poor IV access she only received a couple hours of fluids. I don't see any nonsteroidals and her home medications. No history of diabetes. Vital signs are stable. General: The patient appeared well nourished and normally developed. HEENT: Head exam is unremarkable. Neck is without jugular venous distension. LUNGS: Lungs are clear to auscultation and percussion. Breath sounds decreased. HEART: Rate and Rhythm are regular. ABDOMEN: Soft, nontender. Distention noted. EXTREMITITES: 2+ edema. Past Medical History Past Medical History: Blood Disorder, Cancer, Hyperlipidemia, Hypertension, Liver Disease, Osteoarthritis (OA), Thyroid Disorder Additional Past Medical History / Comment(s): Pt recently admitted to [facility] on 07/04/19 with decompensated idiopathic cirrhosis/mildly elevated troponin/R pulmonary abnormality/CKD stage IV/anemia/hypokalemia/hypernatremia. Liver cirrhosis with multiple paracentesis, bilateral breast cancer with mastectomies (years apart), facial melanoma with surgery, Von Willebrand disease, aortic and tricuspid murmur, arthritis in multiple joints, hypothyroid, lower leg edema Last Myocardial Infarction Date:: unknown History of Any Multi-Drug Resistant Organisms: None Reported Past Surgical History: Breast Surgery, Hernia Repair Additional Past Surgical History / Comment(s): Bilateral mastectomies, melanoma removed from face with reconstructive surgery, multiple paracentesis, umbilical hernia repair, D&C Past Anesthesia/Blood Transfusion Reactions: No Reported Reaction Smoking Status: Never smoker - Past Family History Father Additional Family Medical History / Comment(s): Father had heart disease and of this at the age of 73 yrs. Mother Family Medical History: Blood Disorder, Hypertension Additional Family Medical History / Comment(s): Von Willebrand disease. Mother at the age of 88 or 89yrs. Brother(s) Family Medical History: Blood Disorder Additional Family Medical History / Comment(s): Brother of Von Willebrand. Medications and Allergies Home Medications Medication Instructions Recorded Confirmed Type Atorvastatin Calcium [Lipitor] 10 mg PO HS 07/12/18 07/18/19 History Levothyroxine Sodium [Synthroid] 150 mcg PO DAILY 07/12/18 07/18/19 History Multivitamins, Thera [Multivitamin 1 tab PO DAILY 07/18/18 07/18/19 History (formulary)] Spironolactone 25 mg PO DAILY 07/04/19 07/18/19 History Furosemide [Lasix] 40 mg PO BID 07/18/19 07/18/19 History Allergies Allergy/AdvReac Type Severity Reaction Status Date / Time aspirin AdvReac Unknown Verified 07/18/19 13:38 Physical Exam Vitals: Vital Signs Temp Pulse Pulse Pulse Resp BP BP 07/19/19 05:33 98.5 F 75 18 122/69 07/18/19 20:35 97.6 F 67 22 123/77 07/18/19 18:25 97.6 F 76 20 118/68 07/18/19 17:31 78 20 114/51 07/18/19 16:00 78 20 114/51 07/18/19 15:00 78 20 07/18/19 14:00 78 20 07/18/19 13:49 78 20 108/55 07/18/19 12:49 20 07/18/19 11:49 20 07/18/19 11:42 98.2 F 69 22 113/66 Pulse Ox 07/19/19 05:33 99 07/18/19 20:35 97 07/18/19 18:25 93 L 07/18/19 17:31 96 07/18/19 16:00 96 07/18/19 15:00 96 07/18/19 14:00 96 07/18/19 13:49 96 07/18/19 12:49 07/18/19 11:49 07/18/19 11:42 100 Intake and Output 07/18/19 07/19/19 07/19/19 22:59 06:59 14:59 Intake Total 240 1000 Balance 240 1000 Intake: Intake, IV Titration 1000 Amount Sodium Chloride 0.9% 1, 1000 000 ml @ 75 mls/hr IV . [id number] Rx#:[id number] Oral 240 Other: Voiding Method Bedpan # Voids 2 1 Results - Lab Results Most recent lab results Calcium 8.9 mg/dL (8.4-10.2) 07/19/19 06:18 Phosphorus 4.6 mg/dL (2.5-4.5) H 07/19/19 06:18 Magnesium 2.1 mg/dL (1.6-2.3) 07/19/19 06:18 07/19/19 06:18 07/19/19 06:18 Assessment and Plan Plan: Assessment: 1. Acute kidney injury secondary to ATN secondary to hepatorenal syndrome. No significant improvement in renal function with IV fluids. Creatinine 2.77 today. UA benign. No hydronephrosis noted on kidney ultrasound. 2. Chronic kidney disease stage III with baseline creatinine in the range of 1.5-2. 3. Volume overload. 4. Idiopathic liver cirrhosis with ascites. 5. Hypervolemic hyponatremia. 6. Metabolic acidosis secondary to acute kidney injury. 7. Von Willebrand's disease. 8. Chronic diastolic CHF with mild to moderate mitral regurgitation. Plan: Hep-Lock IV fluids. Start IV Lasix 40 mg twice daily. Check abdominal ultrasound. 1500 mL fluid restriction. Encouraged oral intake, particularly protein. May require paracentesis. I will give her albumin pre-and post procedure. Continue to monitor renal function and urine output. Insert Sanon catheter. Strict I's and O's. Thank you for the consultation. I will continue to follow the patient with you during her hospital stay.
[2019-07-19 10:28] VITALS: BMI 20.2
[2019-07-19] MEDS: FUROSEMIDE 10 MG/ML 4 ML VIAL IV SCH ×2 (12:53→21:16)
--- NOTE | 2019-07-19 13:38 | P.CN ---
Psychiatric Consult - . Consult date: 07/19/19 Consult:: 07/19/19 13:33 IDENTIFYING DATA: This patient is a 83-year-old female currently lives alone in a house has 2 kids and 2 grandchildren. HISTORY OF PRESENT ILLNESS: The patient presented to the hospital presenting with chief complaint of nausea and vomiting for the past few days. Patient was apparently diagnosed with a UTI however not on antibiotics and was displaying fusion. Patient did have ascites removed 5 days ago according the ER report. Patient's sodium was at 126, potassium 5.5 and creatinine 2.87 on admission. 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 Computed tomography scan also showed degenerative and remote ischemic changes. Patient was admitted to medicine and psychiatry is consulted for depression. Nursing care patient states that she is "doing better now" and was more appropriate with conversation and less confused. Patient did receive Haldol when necessary earlier for agitation and apparent hallucinations. Patient was for the most part appropriate with marine underwriter during conversation and was preoccupied with being discharged. Patient did appear to be anxious and st ates that she had been suffering from depression at times in her life. She claims that her grandson is "looking for me" and explained that they were trying to saw her house. She states that her mood at this time is "fine" however does continue to express anxiety. She denied any manic symptoms in the past. She claims that her sleep is "okay". Patient believes that it is "June 2019" however does not that she is in hospital does not her name and was following commands appropriately. At this time patient denies any suicidal or homical ideations, intent or plan. Patient denies any auditory, visual hallucinations and denies any paranoia or delusions. Patients admits to using no substances and denies any cigarette use. PAST PSYCHIATRIC HISTORY: Patient has a a history of depression and anxiety. Patient denies being on any psychiatric medications. Patient denies any previous psychiatric hospitalizations. Patient denies any psychiatric outpatient follow- up. Patient denies any history of suicide attempts in the past. PAST MEDICAL HISTORY: Cancer, hypertension, hyperlipidemia, osteoporosis, thyroid disorder. ALLERGIES: as per EMR. CHEMICAL DEPENDENCY HISTORY: as per HPI. 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 She states that she currently lives alone in a house has 2 kids and 2 grandchildren. She denied any legal problems. MENTAL STATUS EXAM: General Appearance: Patient appears to be thin/peripheral, stated age is alert, directable, and cooperative. Patient appears to have fair hygiene and grooming wearing hospital gown with fair eye contact. Behavior: Patient is calmly lying in bed without any agitated behavior. Co operative. Speech: Patient's speech is fluent and nonpressured. Mood/Affect: Patient reports their mood is "depressed at times but now okay", affect is congruent Suicidality/Homicidality: Patient denies having any suicidal or homicidal ideation intent or plan. Perceptions: Patient denies any visual hallucinations and denies any auditory hallucinations Though content/process: There is no evidence of any delusional thought content and thought process is linear and goal-directed. preoccupied a discharge. Memory and concentration: AOX2, believes that it is "June 2019", fair attention span. Can spell "WORLD" backwards Judgment and insight: Limited IMPRESSIONS: Depressive disorder unspecified Anxiety disorder unspecified PLAN: -At this time patient DOES NOT meet criteria for inpatient psychiatric admission. 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 Consider melatonin if patient has sleep difficulties. -Psychiatry will sign off at this point, please contact with any questions.
--- NOTE | 2019-07-19 14:12 | P.PN ---
Subjective Progress Note Date: 07/19/19 Principal diagnosis: confusion Patient was agitated earlier in the morning, currently she seems to be doing ok. No pain, no sob. No fevers or chills. Objective - Vital Signs Vital signs: Vital Signs Temp 98.5 F 07/19/19 05:33 Pulse 67 07/19/19 08:00 Resp 18 07/19/19 08:00 BP 122/69 07/19/19 05:33 Pulse Ox 99 07/19/19 05:33 Intake & Output 07/18/19 07/19/19 07/19/19 18:59 06:59 18:59 Intake Total 1240 Balance 1240 Weight 53.524 kg 53.524 kg Intake: Intake, IV Titration 1000 Amount Sodium Chloride 0.9% 1, 1000 000 ml @ 75 mls/hr IV . [id number] ONE Rx#:[id number] Oral 240 Other: Voiding Method Bedpan Bedpan # Voids 2 1 - Exam General: ill appearing, no distress, appears at stated age, temporal wasting, muscle wasting, disheveled Derm: no unusual rashes/lesions no unusual ecchymoses, warm, dry Head: atraumatic, normocephalic, symmetric Eyes: EOMI, no lid lag, anicteric sclera, pupils equal round reactive to light ENT: Nose and ears atraumatic, no thrush, + pharyngeal erythema without exudates Neck: No thyromegaly, no cervical lymphadenopathy, trachea midline, supple Mouth: no lip lesion, mucus membranes moist Cardiovascular: S1S2 reg, Grade 3 murmur, positive posterior tibial pulse bilateral, 2+ edema, capillary refill less than 2 seconds Lungs: Decreased bs bilateral, no rhonchi, no rales , no accessory muscle use Abdominal: + distended and tympanic soft, nontender to palpation, no guarding, no appreciable organomegaly, normal bowel sounds Ext: + gross muscle atrophy, muscle strength 4 out of 5 in all 4 extremities grossly, no contractures, Neuro: CN II-XI grossly intact, light touch intact all 4 extremities, finger to nose within normal limits, Psych: Alert, oriented to self and being in a hospital and year, not date, angry, unable to reason - Labs CBC & Chem 7: 07/19/19 06:18 07/19/19 06:18 Labs: Abnormal Lab Results - Last 24 Hours (Table) 07/18/19 07/18/19 07/18/19 Range/Units 12:24 12:24 12:24 WBC (3.8-10.6) k/uL RBC 3.44 L (3.80-5.40) m/uL Hgb 10.1 L (11.4-16.0) gm/dL Hct 32.9 L (34.0-46.0) % MCHC 30.8 L (31.0-37.0) g/dL Neutrophils # 8.5 H (1.3-7.7) k/uL Lymphocytes # 0.7 L (1.0-4.8) k/uL PT 12.5 H (9.0-12.0) sec INR 1.2 H (<1.2) Sodium 126 L (137-145) mmol/L Potassium 5.5 H (3.5-5.1) mmol/L Carbon Dioxide 16 L (22-30) mmol/L BUN 75 H (7-17) mg/dL Creatinine 2.87 H (0.52-1.04) mg/dL Glucose 123 H (74-99) mg/dL POC Glucose (mg/dL) (75-99) mg/dL Plasma Lactic Acid Hernan (0.7-2.0) mmol/L Phosphorus (2.5-4.5) mg/dL AST 52 H (14-36) U/L Alkaline Phosphatase 227 H (38-126) U/L Total Protein 5.5 L (6.3-8.2) g/dL Albumin 2.3 L (3.5-5.0) g/dL TSH (0.465-4.680) mIU/L Urine Ketones (Negative) 07/18/19 07/18/19 07/18/19 Range/Units 12:24 13:11 13:20 WBC (3.8-10.6) k/uL RBC (3.80-5.40) m/uL Hgb (11.4-16.0) gm/dL Hct (34.0-46.0) % MCHC (31.0-37.0) g/dL Neutrophils # (1.3-7.7) k/uL Lymphocytes # (1.0-4.8) k/uL PT (9.0-12.0) sec INR (<1.2) Sodium (137-145) mmol/L Potassium (3.5-5.1) mmol/L Carbon Dioxide (22-30) mmol/L BUN (7-17) mg/dL Creatinine (0.52-1.04) mg/dL Glucose (74-99) mg/dL POC Glucose (mg/dL) 125 H (75-99) mg/dL Plasma Lactic Acid Hernan 2.2 H* (0.7-2.0) mmol/L Phosphorus (2.5-4.5) mg/dL AST (14-36) U/L Alkaline Phosphatase (38-126) U/L Total Protein (6.3-8.2) g/dL Albumin (3.5-5.0) g/dL TSH (0.465-4.680) mIU/L Urine Ketones Trace H (Negative) 07/19/19 07/19/19 07/19/19 Range/Units 06:18 06:18 06:18 WBC 10.8 H (3.8-10.6) k/uL RBC 3.05 L (3.80-5.40) m/uL Hgb 9.4 L (11.4-16.0) gm/dL Hct 29.3 L (34.0-46.0) % MCHC (31.0-37.0) g/dL Neutrophils # (1.3-7.7) k/uL Lymphocytes # (1.0-4.8) k/uL PT 13.4 H (9.0-12.0) sec INR 1.3 H (<1.2) Sodium 127 L (137-145) mmol/L Potassium 5.4 H (3.5-5.1) mmol/L Carbon Dioxide 16 L (22-30) mmol/L BUN 75 H (7-17) mg/dL Creatinine 2.77 H (0.52-1.04) mg/dL Glucose (74-99) mg/dL POC Glucose (mg/dL) (75-99) mg/dL Plasma Lactic Acid Hernan (0.7-2.0) mmol/L Phosphorus 4.6 H (2.5-4.5) mg/dL AST 46 H (14-36) U/L Alkaline Phosphatase 211 H (38-126) U/L Total Protein 5.2 L (6.3-8.2) g/dL Albumin 2.0 L (3.5-5.0) g/dL TSH 0.017 L (0.465-4.680) mIU/L Urine Ketones (Negative) Assessment and Plan Plan: 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 due to dehydration with hyperkalemia and anion gap metabolic acidosis - Caseline cr ~2 - holding lasix and aldactone, gentle IV fluids - Monitor ascities closely - Avoid additional nephrotoxic agents - renal ultrasound showing hypoechoic 1.5cm left renal lesion, will d/w [facility] need to investigate further - Nephro following - recheck labs in am Acute on chronic hypervolemic hyponatremia with baseline Na about 130 - IVF, holding diuretics - recheck in am Acute encepahlopathy with hallucinations and pineal mass - Consult neuro - MRI brain done awaiting result - Patient is currently not competent to make decisions and cannot leave AMA - Frequent Neuro checks - ammonia normal - Hx of breast Cancer Nausea and vomiting. appears resolved - antiemetics emetics - advance diet as tolerated - CT scan if symptoms persist Cirrhosis on recurrent paracentesis - Need paracentesis, will d/w family - Monitor for recurrent ascities Right lung nodule - CXR with nipple markers in AM, if still present then CT chest Protein calorie malnutirition - consider dietitian consult once tolerating diet Suspect Depression - Psych consult recommended starting buspar and zoloft. Chronic conditions: HTN HLD Von Willebrand disease Arthritis Hypothyroidism Surrogate decision-maker: Sadaf Murrieta CODE STATUS:Full DVT prophylaxis: SCDs Discussed with: Patient, nursing, tried calling [facility] but mailbox was full and could not leave a message Anticipated discharge date: 2-[address]: [facility]
--- NOTE | 2019-07-19 14:18 | MR ---
EXAMINATION TYPE: MR brain wo con DATE OF EXAM: 07/19/2019 COMPARISON: CT brain dated 07/18/2019 HISTORY: Pineal mass TECHNIQUE: Multiplanar, multisequence images of the brain and brainstem is performed without intravenous contras t. FINDINGS: Diffusion weighted images demonstrate no evidence of a recent infarct or other diffusion ab normality. There is no extra-axial fluid. Confluent areas of T2/FLAIR hyperintensity are seen in the periventricular and subcortical white matter, overall moderate burden nonspecific white matter enamorado e, likely on the basis of chronic microangiopathy. The ventricular system and cisternal spaces are no rmal symmetrically prominent compatible with age-related volume loss. Pineal gland is T2 isointense and T1 isointense without mass effect on the cerebral aqueduct or super ior tectum. Pineal gland measures 0.9 x 0.8 cm. No T1 hyperintensity to suggest hemorrhage Craniocerv ical junction appears within normal limits. Lack of flow void is seen within the left transverse sin us and internal jugular vein. The globes are intact. IMPRESSION: 1. Possible left transverse sinus and internal jugular thrombosis. Post contrasted MRI sequences of t he brain are recommended for further evaluation. 2. No definitive pineal gland mass as suggested on CT. Postcontrast images are recommended to evaluat e for any enhancement. No mass effect on the superior tectum nor cerebral aqueduct. 3. Moderate burden nonspecific white matter change, likely on the basis of chronic microangiopathy. 4. No acute infarct or midline shift. Age-related volume loss. A [place] level critical message alert has been initiated for Yareli So DO via the [employer] Critical Results System on 07/19/2019 2:16 PM. This message alert has been sent to Yareli boyle DO via the preferences provided by the clinician for the receipt of Radiology Critical Findings. Message ID [id number].
[2019-07-19] MEDS ORDERED: HEPARIN SODIUM,PORCINE 5,000 UNIT/ML 1 ML VIAL IV PRN (14:29)
[2019-07-19 15:26] LABS: Basophils % (A) 0 %; Eosinophils % (A) 0 %; HCT 31.4 % (34.0-46.0); HGB 9.9 gm/dL (11.4-16.0); Hypochromasia Slight; Lymphocytes % (A) 9 %; MCH 30.9 pg (25.0-35.0); MCHC 31.6 g/dL (31.0-37.0); MCV 97.8 fL (80.0-100.0); Monocytes # (A) 0.6 k/uL (0-1.0); Monocytes % (A) 6 %; Neutrophils # (A) 9.7 k/uL (1.3-7.7); Neutrophils % (A) 84 %; Platelet Count 194 k/uL (150-450); RBC 3.21 m/uL (3.80-5.40); RDW 14.8 % (11.5-15.5); WBC 11.5 k/uL (3.8-10.6)
[2019-07-19] MEDS: HEPARIN SOD,PORK IN 0.45% NACL 25,000 UNIT in 0.45% NACL 1 250ML.BAG IV SCH (15:30)
[2019-07-19 15:34] LABS: INR 1.3 (<1.2); Partial Thromboplastin Time 34.4 sec (22.0-30.0); Prothrombin Time 13.2 sec (9.0-12.0)
[2019-07-19] MEDS: ALBUMIN HUMAN 25% 50 ML in EMPTY BAG 1 BAG IVPB SCH ×4 (15:44→18:06)
--- NOTE | 2019-07-19 17:23 | CONS ---
CONSULTATION DATE OF THIS DICTATION: 07/19/2019. HISTORY OF PRESENT ILLNESS: Thank you for allowing me to evaluate Esther Villa who is an 83-year-old right- handed white female who presented to [facility] on 07/18/2019 according to her for evaluation of nausea and vomiting, which had been occurring over the 2 days leading up to the hospitalization. The patient states she was unable to the eat or drink and had "difficulty breathing because I was tired out." The patient was recently hospitalized at [facility] on 07/04/2019, at which time she presented with abdominal distention, was found during the hospitalization to have a Klebsiella urinary tract infection and underwent paracentesis on 07/05/2019. She subsequently signed out against medical advice. According to the EMS sheet who spoke to the patient's caregiver on the scene, she stated the patient had been given an antibiotic for urinary tract infection, but had not been taking her medications. Her caregiver also stated that the patient had been locking her out of the house and refusing to go to doctor's appointments. Emergency workers stated the patient was agitated on the scene. Upon presentation, the patient had a CT scan of the brain completed, which raised question of a 1.2 cm hyperdense pineal gland mass but no acute pathology was noted on this CT. There were no old studies available for comparison. This finding prompted neurologic consultation. For followup of this finding, the patient had MRI of the brain completed, although this was done without contrast and the pineal gland lesion was not identified, although question was raised on this study of a left transverse sinus/internal jugular thrombosis. For further evaluation of both these issues, the patient has been scheduled for an MRI of the brain with contrast and an MRV of the head, both studies are pending at the time of this dictation. . The patient currently denies headache and denies recent fever, chills, or sweats. Today, the patient states that she feels tired but otherwise has been able to hold down solids and liquids and denies difficulty swallowing. She denies previous history of stroke or seizure. When I asked the patient about her baseline memory, she stated "the doctor told me it is better than his." ALLERGIES: ASPIRIN, which the patient states is listed due to her history of von Willebrand's disease. HOME MEDICATIONS: Spironolactone, Lipitor, multivitamin, levothyroxine and Lasix. PAST MEDICAL HISTORY: Hyperlipidemia, hypertension, osteoporosis, hypothyroidism, breast cancer, which patient's states was diagnosed between 1989 and 1991, status post surgical resection without chemotherapy/radiation and no history of recurrence, von Willebrand's disease, arthritis, idiopathic cirrhosis with recurrent ascites, chronic kidney disease, depression, and anxiety. PAST SURGICAL HISTORY: Bilateral mastectomies in the early , melanoma removed from the face in 1990, multiple paracentesis and D and C. SOCIAL HISTORY: The patient denies tobacco or alcohol use. She is with 2 children. Lives in a house by herself. She states her granddaughter acts as a caregiver. FAMILY HISTORY: The patient's parents are . She states both had strokes. REVIEW OF SYSTEMS: Fourteen systems are reviewed and no changes were identified. The review of systems documented in history and physical. PHYSICAL EXAM: Upon arrival to the patient's room, she was a lying in bed, a limited historian. Hesitant to provide details. Affect is flat. She appears deconditioned and older than stated age. She has hirsutism. Her abdomen is distended. She had her bed sheet some pulled up to just below her chin and did not wish to uncover her extremities, but did ultimately agree to do so. VITAL SIGNS: Blood pressure is 130/60 with a pulse 75, respiratory rate 18, temperature is 97.6, the patient has been afebrile through the course of this hospitalization. Weight is 53.5 kg on a 5 foot 4 inch frame. SKIN AND EXTREMITIES: Arthritic changes are noted in the hands and feet. The patient has a lower extremity edema and abdominal distention. HEAD AND NECK: No signs of trauma. Neck is supple without meningeal signs. Arteries are nontender and without bruits. HEART: Regular rate and rhythm, higher cortical function. MENTAL STATUS: Patient was alert, oriented to self. She knew she was in "[facility]". She stated the year was "2024" and the month was "February." She did not know the day of week. She was able to name the current president. She was able to name basic objects, repeat and read. There was no right, left disorientation, finger-nose extinction to double simultaneous stimulation or dysarthria. Cranial 2 through 12, pupils are equal and reactive to light symmetrically. No afferent pupillary defect. Visual olivares are intact to confrontation. No ptosis/extraocular movements full. No nystagmus. Pinprick light touch intact in all 3 divisions. Motor 5 intact. No facial asymmetry noted. Acuity intact to finger rub. Palate ara in the midline. Trapezius strength intact. Tongue protruded midline without fasciculation or atrophy. Motor examination, there is no pronator drift. There is diffuse loss of bulk, particularly in the hand intrinsic muscles with normal tone and no involuntary movements were noted. In particular, no myoclonus/asterixis was present. Strength is at least 4+/5 in a nonfocal fashion, although the patient provided only brief and unsustained effort. Sensory intact to pinprick and light touch in all extremities. Reflexes right side was first biceps 2, 2. Brachioradialis 1,1; triceps 2, 2; patella 2, 2, ankle 0,0, Plantar responses flexor bilaterally. Castro's is absent. Coordination [id number], [id number] movements are intact. Rapid movements are symmetric with finger and foot tapping. DIAGNOSTIC TESTING: The patient had CT and MRI of the brain completed with results as discussed above. The patient's urine culture from 07/04/2019 demonstrated Klebsiella. LAB WORK: From this hospitalization include a white blood count of 10.1, hemoglobin 10.1, platelet count 181. Sodium 126, potassium 5.5, BUN 75, with a creatinine of 2.87. INR 1.2. Calcium 9.3, magnesium 2.1. Patient's last BUN and creatinine prior to this hospitalization from 07/05/2019 was 38 and 1.58. ALT 29, AST 52, ammonia less than 9. Troponin negative. TSH was low at 0.017, T4 within normal limits. Blood cultures have demonstrated no growth at 24 hours. Urinalysis revealed negative nitrate and leukocyte esterase, trace ketones. Robles virus negative. IMPRESSION: 1. Encephalopathy secondary to acute kidney injury/dehydration and electrolyte derangement (hyponatremia), it is unclear if this is superimposed on baseline cognitive decline. 2. Incidentally identified pineal gland lesion on CT, not reproduced on a noncontrast MRI of the brain. Of note, there is no associated hydrocephalus. 3. Incidentally identified possible left transverse sinus/internal jugular thrombosis on MRI. The patient currently denies headache, exam is nonfocal and there was no evidence of ischemia on diffusion-weighted images. 4. Recent Klebsiella urinary tract infection. 5. Noncompliance with medications per the patient's caregiver. 6. Low TSH/anemia. Defer to your expertise. 7. Idiopathic cirrhosis with recurrent ascites, current ammonia level is normal. 8. Medical problems including hypertension, hyperlipidemia, osteoporosis, hypothyroidism, remote history of breast cancer/melanoma status post surgical resections, von Willebrand's disease, arthritis, chronic kidney disease, depression and anxiety. RECOMMENDATION: 1. I discussed my impression and plan with the patient and she expressed understanding. 2. MRI of the brain with contrast and MRV of the head are pending at the time of this dictation. Further recommendations will be made based on the results of these studies. 3. Compliance with medications was stressed. 4. Treatment of medical issues per primary service. 5. Will follow with you. CHARLIE / ELIE: [id number] / MTDD
[2019-07-19] MEDS: SERTRALINE 25 MG TAB PO SCH (18:10)
[2019-07-19] MEDS: busPIRone HCl 5 MG TAB PO SCH ×2 (18:10→21:15)
[2019-07-19] MEDS: ATORVASTATIN 10 MG TAB PO SCH (21:15)
[2019-07-20 03:37] LABS: Basophils % (A) 0 %; Eosinophils % (A) 0 %; HCT 32.7 % (34.0-46.0); HGB 9.9 gm/dL (11.4-16.0); Hypochromasia Moderate; Lymphocytes # (A) 0.9 k/uL (1.0-4.8); Lymphocytes % (A) 6 %; MCH 29.6 pg (25.0-35.0); MCHC 30.3 g/dL (31.0-37.0); MCV 97.6 fL (80.0-100.0); Mean Platelet Volume 9.7; Monocytes # (A) 0.9 k/uL (0-1.0); Monocytes % (A) 6 %; Neutrophils # (A) 12.5 k/uL (1.3-7.7); Neutrophils % (A) 86 %; Platelet Count 186 k/uL (150-450); RBC 3.35 m/uL (3.80-5.40); RDW 14.8 % (11.5-15.5); WBC 14.5 k/uL (3.8-10.6)
[2019-07-20] MEDS: HALOPERIDOL LACTATE 5 MG/ML 1 ML VIAL IVP PRN ×2 (03:47→09:36)
[2019-07-20 03:48] LABS: Albumin 2.4 g/dL (3.5-5.0); Calcium 9.4 mg/dL (8.4-10.2); Phosphorus 5.3 mg/dL (2.5-4.5); Potassium 5.3 mmol/L (3.5-5.1); Total Bilirubin 1.4 mg/dL (0.2-1.3)
[2019-07-20] MEDS ORDERED: HEPARIN SODIUM,PORCINE 5,000 UNIT/ML 1 ML VIAL IV STA (03:58)
[2019-07-20 05:32] VITALS: TEMP 97.5
--- NOTE | 2019-07-20 10:44 | MR ---
EXAMINATION TYPE: MR brain w con DATE OF EXAM: 07/20/2019 COMPARISON: Brain MR 07/19/2019 HISTORY: r/o thrombosis. Abnormal MRI WO yesterday. TECHNIQUE: Multiplanar, multisequence images of the brain and brainstem is performed without and with IV contras t, utilizing 5.5 mL intravenous Gadavist . FINDINGS: Postcontrast images show normal enhancement of the sigmoid sinus, local portion of the inte rnal jugular vein the skull base. IMPRESSION: No evident sinus thrombosis, findings on prior MRI likely related to flow artifact.
--- NOTE | 2019-07-20 10:45 | MR ---
EXAMINATION TYPE: MR MRA/MRV head wo con DATE OF EXAM: 07/20/2019 COMPARISON: MRI brain 07/19/2019 and MR postcontrast 07/20/2019 HISTORY: r/o thrombosis. Abnormal MRI brain yesterday. TECHNIQUE: Time of flight images focusing on the [place] and venous sinuses were performed w ithout contrast.. 2-D and 3-D postprocessing imaging is performed. FINDINGS: Arterial study shows patent anterior and posterior circulation, the vertebral arteries are codominant. There is motion on the exam. There is no evident dissection, aneurysm, or embolus. Extensive motion present on the venous exam. Sigmoid sinus appears patent seen better on the right th an on the left. Sagittal sinus appears patent as does the straight sinus. IMPRESSION: There is extensive motion on exam. The findings seen on prior MRI represent flow artifact
[2019-07-20] MEDS: FUROSEMIDE 10 MG/ML 4 ML VIAL IV SCH (11:42)
[2019-07-20] MEDS: SERTRALINE 25 MG TAB PO SCH (11:44)
[2019-07-20] MEDS: busPIRone HCl 5 MG TAB PO SCH ×2 (11:44→20:25)
[2019-07-20] MEDS: MULTIVITAMINS, THERA 1 EACH TAB PO SCH (11:45)
[2019-07-20] MEDS: LEVOTHYROXINE 75 MCG TAB PO SCH (11:47)
[2019-07-20] MEDS: PANTOPRAZOLE 40 MG/10 ML VIAL IV SCH (11:47)
[2019-07-20] MEDS ORDERED: FUROSEMIDE 10 MG/ML 10 ML VIAL IV STA (12:38)
[2019-07-20] MEDS ORDERED: SODIUM BICARBONATE TAB 650 MG TAB PO SCH (12:45)
--- NOTE | 2019-07-20 12:52 | P.PN ---
Subjective Patient is seen in follow-up for acute kidney injury on chronic kidney disease. Patient has chronic kidney disease stage III with baseline creatinine recently in the range of 1.5-2. Creatinine fairly stable at 2.87. Patient is not a reliable historian. Accurate urine output not documented. This was discussed with the nurse. MRI of the brain this morning revealed no evidence of sinus thrombosis. Currently maintained on IV Lasix 40 mg twice daily. Acidosis is worsened. Vital signs are stable. General: The patient appeared well nourished and normally developed. HEENT: Head exam is unremarkable. Neck is without jugular venous distension. LUNGS: Lungs are clear to auscultation and percussion. Breath sounds decreased. HEART: Rate and Rhythm are regular. First and second heart sounds normal. No murmurs, rubs or gallops. ABDOMEN: Soft, nontender. EXTREMITITES: 1+ edema. Objective - Vital Signs Vital signs: Vital Signs Temp 97.5 F L 07/20/19 05:00 Pulse 97 07/20/19 11:05 Resp 18 07/20/19 11:05 BP 121/68 07/20/19 11:05 Pulse Ox 99 07/20/19 11:05 Intake & Output 07/19/19 07/20/19 07/20/19 18:59 06:59 18:59 Intake Total 337 272.969 50.956 Balance 337 272.969 50.956 Weight 53.524 kg Intake: Intake, IV Titration 72.969 50.956 Amount Heparin Sod,Pork in 0.45% 72.969 50.956 NaCl 25,000 unit In 0.45 % NaCl 1 250ml.bag @ 12 UNITS/KG/HR 6.423 mls/hr IV .Q24H [facility] Rx#: [id number] Oral 337 200 Other: Voiding Method Bedpan Indwelling Catheter # Voids 1 0 # Bowel Movements 0 - Labs CBC & Chem 7: 07/20/19 03:18 07/20/19 03:18 Labs: Abnormal Lab Results - Last 24 Hours (Table) 07/19/19 07/19/19 07/19/19 Range/Units 14:30 14:30 20:33 WBC 11.5 H (3.8-10.6) k/uL RBC 3.21 L (3.80-5.40) m/uL Hgb 9.9 L (11.4-16.0) gm/dL Hct 31.4 L (34.0-46.0) % MCHC (31.0-37.0) g/dL Neutrophils # 9.7 H (1.3-7.7) k/uL Lymphocytes # (1.0-4.8) k/uL PT 13.2 H (9.0-12.0) sec INR 1.3 H (<1.2) APTT 34.4 H 80.1 H (22.0-30.0) sec Sodium (137-145) mmol/L Potassium (3.5-5.1) mmol/L Carbon Dioxide (22-30) mmol/L BUN (7-17) mg/dL Creatinine (0.52-1.04) mg/dL Glucose (74-99) mg/dL Phosphorus (2.5-4.5) mg/dL Total Bilirubin (0.2-1.3) mg/dL AST (14-36) U/L Alkaline Phosphatase (38-126) U/L Total Protein (6.3-8.2) g/dL Albumin (3.5-5.0) g/dL 07/20/19 07/20/19 07/20/19 Range/Units 03:18 03:18 03:18 WBC 14.5 H (3.8-10.6) k/uL RBC 3.35 L (3.80-5.40) m/uL Hgb 9.9 L (11.4-16.0) gm/dL Hct 32.7 L (34.0-46.0) % MCHC 30.3 L (31.0-37.0) g/dL Neutrophils # 12.5 H (1.3-7.7) k/uL Lymphocytes # 0.9 L (1.0-4.8) k/uL PT (9.0-12.0) sec INR (<1.2) APTT 39.6 H (22.0-30.0) sec Sodium 128 L (137-145) mmol/L Potassium 5.3 H (3.5-5.1) mmol/L Carbon Dioxide 12 L (22-30) mmol/L BUN 80 H (7-17) mg/dL Creatinine 2.87 H (0.52-1.04) mg/dL Glucose 118 H (74-99) mg/dL Phosphorus 5.3 H (2.5-4.5) mg/dL Total Bilirubin 1.4 H (0.2-1.3) mg/dL AST 50 H (14-36) U/L Alkaline Phosphatase 223 H (38-126) U/L Total Protein 6.0 L (6.3-8.2) g/dL Albumin 2.4 L (3.5-5.0) g/dL 07/20/19 Range/Units 09:06 WBC (3.8-10.6) k/uL RBC (3.80-5.40) m/uL Hgb (11.4-16.0) gm/dL Hct (34.0-46.0) % MCHC (31.0-37.0) g/dL Neutrophils # (1.3-7.7) k/uL Lymphocytes # (1.0-4.8) k/uL PT (9.0-12.0) sec INR (<1.2) APTT 74.0 H (22.0-30.0) sec Sodium (137-145) mmol/L Potassium (3.5-5.1) mmol/L Carbon Dioxide (22-30) mmol/L BUN (7-17) mg/dL Creatinine (0.52-1.04) mg/dL Glucose (74-99) mg/dL Phosphorus (2.5-4.5) mg/dL Total Bilirubin (0.2-1.3) mg/dL AST (14-36) U/L Alkaline Phosphatase (38-126) U/L Total Protein (6.3-8.2) g/dL Albumin (3.5-5.0) g/dL Microbiology - Last 24 Hours (Table) 07/18/19 12:24 Blood Culture - Preliminary Blood No Growth after 24 hours Assessment and Plan Plan: Assessment: 1. Acute kidney injury secondary to ATN secondary to hepatorenal syndrome. No significant improvement in renal function with IV fluids. Creatinine 2.87 today. UA benign. No hydronephrosis noted on kidney ultrasound. 2. Chronic kidney disease stage III with baseline creatinine in the range of 1.5-2. 3. Volume overload. 4. Idiopathic liver cirrhosis with ascites. 5. Hypervolemic hyponatremia. 6. Metabolic acidosis secondary to acute kidney injury. 7. Von Willebrand's disease. 8. Chronic diastolic CHF with mild to moderate mitral regurgitation. 9. Questionable sinus thrombosis. Not evident on today's brain MRI with contrast. Currently on IV heparin. 10. Hyperphosphatemia secondary to acute kidney injury. Expect improvement postdialysis. Plan: Start isotonic bicarbonate drip to be run at 50 mL an hour x 24 hours. Add oral sodium bicarbonate. Lasix 80 mg IV once today. 1500 mL fluid restriction. Encouraged oral intake, particularly protein. 25 g IV albumin 2 doses today. Continue to monitor renal function and urine output. She has a Sanon catheter. Strict I's and O's. Patient's urine output has been on the lower side with no improvement in her kidney function. GFR 15. Acidosis worsened. She did receive Gadavist this morning. I will plan for hemodialysis today and tomorrow and continue to monitor for renal recovery. Case was discussed with the patient's granddaughter who is in agreement with the plan.
[2019-07-20] MEDS ORDERED: DEXTROSE 5% IN WATER 1,000 ML with SODIUM BICARB (1 MEQ/ML) 150 ML IV SCH (13:00)
[2019-07-20] MEDS: ALBUMIN HUMAN 25% 50 ML in EMPTY BAG 1 BAG IVPB SCH ×2 (14:53→16:22)
--- NOTE | 2019-07-20 15:46 | CDI ---
Documentation Clarification Form Date: 07/20/2019 03:31:24 PM From: Lia Cristobal RN CCDS Admit Date: 07/18/2019 02:18:00 PM Patient Name: Esther Villa Visit Number: [id number] Discharge Date: ATTENTION: The Clinical Documentation Specialists (CDI) and [facility] Coding Staff appreciate your assistance in clarifying documentation. Please respond to the clarification below the line at the bottom and electronically sign. The CDI & [facility] Coding staff will review the response and follow-up if needed. Please note: Queries are made part of the Legal Health Record. If you have any questions, please contact the author of this message via ITS. Dr. 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 Medical History CKD 3 with baseline creatinine in the range of 1.5 2. Diastolic CHF, Von Willebrands disease Clinical Indicators: 07/17 Labs: Wbc 10.1, Neutrophils 8.5, Na 126, K 5.5, BUN 75, Cr 2.87, AST 52, Alk Phos 227, 07/17 CT Brain: No acute process Treatment: 07/17 0.9ns 100cc changed to 75cc hr, d/c 07/18, 07/19 Sodium Bicarb PO BID, Dextrose/Water with Sodium Bicarbonate 50cchr Consult: Nephrology 07/18 Acute kidney injury secondary to ATN secondary to hepatorenal syndrome. No significant improvement in renal function with IV fluids. Creatinine 2.77 today Consult: Psychology 07/18 - Depressive disorder unspecified, Anxiety disorder unspecified In your professional opinion, can you please clarify the specific type of Encephalopathy, if known? Acute Metabolic Encephalopathy related to (please specify) Other, please specify Unable to determine (Last Revision: May 2017) Acute Metabolic Encephalopathy hepatic and uremic MTDD
--- NOTE | 2019-07-20 16:01 | P.PN ---
Subjective Progress Note Date: 07/20/19 Principal diagnosis: confusion Patient is more confused and agitated today, she is trying to pull things off. Objective - Vital Signs Vital signs: Vital Signs Temp 97.5 F L 07/20/19 05:00 Pulse 97 07/20/19 11:05 Resp 18 07/20/19 11:05 BP 121/68 07/20/19 11:05 Pulse Ox 99 07/20/19 11:05 Intake & Output 07/19/19 07/20/19 07/20/19 18:59 06:59 18:59 Intake Total 337 272.969 100.956 Balance 337 272.969 100.956 Weight 53.524 kg Intake: Intake, IV Titration 72.969 50.956 Amount Heparin Sod,Pork in 0.45% 72.969 50.956 NaCl 25,000 unit In 0.45 % NaCl 1 250ml.bag @ 12 UNITS/KG/HR 6.423 mls/hr IV .Q24H [facility] Rx#: [id number] Oral 337 200 50 Other: Voiding Method Bedpan Indwelling Catheter # Voids 1 0 # Bowel Movements 0 - Exam General: ill appearing, no distress, appears at stated age, temporal wasting, muscle wasting, disheveled Derm: no unusual rashes/lesions no unusual ecchymoses, warm, dry Head: atraumatic, normocephalic, symmetric Eyes: EOMI, no lid lag, anicteric sclera, pupils equal round reactive to light ENT: Nose and ears atraumatic, no thrush, + pharyngeal erythema without exudates Neck: No thyromegaly, no cervical lymphadenopathy, trachea midline, supple Mouth: no lip lesion, mucus membranes moist Cardiovascular: S1S2 reg, Grade 3 murmur, positive posterior tibial pulse bilateral, 2+ edema, capillary refill less than 2 seconds Lungs: Decreased bs bilateral, no rhonchi, no rales , no accessory muscle use Abdominal: + distended and tympanic soft, nontender to palpation, no guarding, no appreciable organomegaly, normal bowel sounds Ext: + gross muscle atrophy, muscle strength 4 out of 5 in all 4 extremities grossly, no contractures, Neuro: CN II-XI grossly intact, light touch intact all 4 extremities, finger to nose within normal limits, Psych: Alert, oriented to self and being in a hospital and year, not date, angry, unable to reason - Labs CBC & Chem 7: 07/20/19 03:18 07/20/19 03:18 Labs: Abnormal Lab Results - Last 24 Hours (Table) 07/19/19 07/19/19 07/20/19 Range/Units 14:30 20:33 03:18 WBC 14.5 H (3.8-10.6) k/uL RBC 3.35 L (3.80-5.40) m/uL Hgb 9.9 L (11.4-16.0) gm/dL Hct 32.7 L (34.0-46.0) % MCHC 30.3 L (31.0-37.0) g/dL Neutrophils # 12.5 H (1.3-7.7) k/uL Lymphocytes # 0.9 L (1.0-4.8) k/uL PT 13.2 H (9.0-12.0) sec INR 1.3 H (<1.2) APTT 34.4 H 80.1 H (22.0-30.0) sec Sodium (137-145) mmol/L Potassium (3.5-5.1) mmol/L Carbon Dioxide (22-30) mmol/L BUN (7-17) mg/dL Creatinine (0.52-1.04) mg/dL Glucose (74-99) mg/dL Phosphorus (2.5-4.5) mg/dL Total Bilirubin (0.2-1.3) mg/dL AST (14-36) U/L Alkaline Phosphatase (38-126) U/L Total Protein (6.3-8.2) g/dL Albumin (3.5-5.0) g/dL 07/20/19 07/20/19 07/20/19 Range/Units 03:18 03:18 09:06 WBC (3.8-10.6) k/uL RBC (3.80-5.40) m/uL Hgb (11.4-16.0) gm/dL Hct (34.0-46.0) % MCHC (31.0-37.0) g/dL Neutrophils # (1.3-7.7) k/uL Lymphocytes # (1.0-4.8) k/uL PT (9.0-12.0) sec INR (<1.2) APTT 39.6 H 74.0 H (22.0-30.0) sec Sodium 128 L (137-145) mmol/L Potassium 5.3 H (3.5-5.1) mmol/L Carbon Dioxide 12 L (22-30) mmol/L BUN 80 H (7-17) mg/dL Creatinine 2.87 H (0.52-1.04) mg/dL Glucose 118 H (74-99) mg/dL Phosphorus 5.3 H (2.5-4.5) mg/dL Total Bilirubin 1.4 H (0.2-1.3) mg/dL AST 50 H (14-36) U/L Alkaline Phosphatase 223 H (38-126) U/L Total Protein 6.0 L (6.3-8.2) g/dL Albumin 2.4 L (3.5-5.0) g/dL Microbiology - Last 24 Hours (Table) 07/18/19 12:24 Blood Culture - Preliminary Blood No Growth after 48 hours Assessment and Plan Plan: 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 due to dehydration with hyperkalemia and anion gap metabolic acidosis - Caseline cr ~2 - holding lasix and aldactone, - D/W nephro will need dialysis, placing cath - renal ultrasound showing hypoechoic 1.5cm left renal lesion, will d/w NOK need to investigate further - recheck labs in am Acute on chronic hypervolemic hyponatremia with baseline Na about 130 - Stable, monitor Metabolic acidosis: Bicarb oral 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 Will need some time to decide, then will make a decision on further diagnostic steps. Protein calorie malnutirition - consider dietitian consult once tolerating diet Depression - Psych consult recommended starting buspar and zoloft. Chronic conditions: HTN HLD Von Willebrand disease Arthritis Hypothyroidism Surrogate decision-maker: D/W Sadaf Murrieta today CODE STATUS:Full DVT prophylaxis: SCDs Discussed with: Patient, nursing, Dr. Christianson Anticipated discharge date: 2-[address]: SNF VS [facility]
[2019-07-20] MEDS: HEPARIN SOD,PORK IN 0.45% NACL 25,000 UNIT in 0.45% NACL 1 250ML.BAG IV SCH (17:27)
--- NOTE | 2019-07-20 17:47 | P.GSCN ---
History of Present Illness History of present illness: 83-year-old white female, consulted for urgent callus a catheter for placement. Patient has a acute kidney injury secondary to hepatorenal syndrome. Eschen also has volume overload patient had MRI of the brain showed no evidence of deep DVT of the sinuses Patient was seen in the room patient is confused very restless Neck is supple no bruit bruit appreciated Chest has decreased breath sound Vascular examination brachial radial femoral pulses are present Plan is placement of the dialysis catheter risk and complication discussed Past Medical History Past Medical History: Blood Disorder, Cancer, Hyperlipidemia, Hypertension, Liver Disease, Osteoarthritis (OA), Thyroid Disorder Additional Past Medical History / Comment(s): Pt recently admitted to [facility] on 07/04/19 with decompensated idiopathic cirrhosis/mildly elevated troponin/R pulmonary abnormality/CKD stage IV/anemia/hypokalemia/hypernatremia. Liver cirrhosis with multiple paracentesis, bilateral breast cancer with mastectomies (years apart), facial melanoma with surgery, Von Willebrand disease, aortic and tricuspid murmur, arthritis in multiple joints, hypothyroid, lower leg edema Last Myocardial Infarction Date:: unknown History of Any Multi-Drug Resistant Organisms: None Reported Past Surgical History: Breast Surgery, Hernia Repair Additional Past Surgical History / Comment(s): Bilateral mastectomies, melanoma removed from face with reconstructive surgery, multiple paracentesis, umbilical hernia repair, D&C Past Anesthesia/Blood Transfusion Reactions: No Reported Reaction Smoking Status: Never smoker - Past Family History Father Additional Family Medical History / Comment(s): Father had heart disease and of this at the age of 73 yrs. Mother Family Medical History: Blood Disorder, Hypertension Additional Family Medical History / Comment(s): Von Willebrand disease. Mother at the age of 88 or 89yrs. Brother(s) Family Medical History: Blood Disorder Additional Family Medical History / Comment(s): Brother of Von Willebrand. Medications and Allergies Home Medications Medication Instructions Recorded Confirmed Type Atorvastatin Calcium [Lipitor] 10 mg PO HS 07/12/18 07/18/19 History Levothyroxine Sodium [Synthroid] 150 mcg PO DAILY 07/12/18 07/18/19 History Multivitamins, Thera [Multivitamin 1 tab PO DAILY 07/18/18 07/18/19 History (formulary)] Spironolactone 25 mg PO DAILY 07/04/19 07/18/19 History Furosemide [Lasix] 40 mg PO BID 07/18/19 07/18/19 History Allergies Allergy/AdvReac Type Severity Reaction Status Date / Time aspirin AdvReac Unknown Verified 07/18/19 13:38 Surgical - Exam Vital Signs Temp Pulse Resp BP Pulse Ox 98.2 F 69 22 113/66 100 07/18/19 11:42 07/18/19 11:42 07/18/19 11:42 07/18/19 11:42 07/18/19 11:42 Results - Labs 07/20/19 03:18 07/20/19 03:18 Abnormal Lab Results - Last 24 Hours (Table) 07/19/19 07/20/19 07/20/19 Range/Units 20:33 03:18 03:18 WBC 14.5 H (3.8-10.6) k/uL RBC 3.35 L (3.80-5.40) m/uL Hgb 9.9 L (11.4-16.0) gm/dL Hct 32.7 L (34.0-46.0) % MCHC 30.3 L (31.0-37.0) g/dL Neutrophils # 12.5 H (1.3-7.7) k/uL Lymphocytes # 0.9 L (1.0-4.8) k/uL APTT 80.1 H (22.0-30.0) sec Sodium 128 L (137-145) mmol/L Potassium 5.3 H (3.5-5.1) mmol/L Carbon Dioxide 12 L (22-30) mmol/L BUN 80 H (7-17) mg/dL Creatinine 2.87 H (0.52-1.04) mg/dL Glucose 118 H (74-99) mg/dL Phosphorus 5.3 H (2.5-4.5) mg/dL Total Bilirubin 1.4 H (0.2-1.3) mg/dL AST 50 H (14-36) U/L Alkaline Phosphatase 223 H (38-126) U/L Total Protein 6.0 L (6.3-8.2) g/dL Albumin 2.4 L (3.5-5.0) g/dL 07/20/19 07/20/19 Range/Units 03:18 09:06 WBC (3.8-10.6) k/uL RBC (3.80-5.40) m/uL Hgb (11.4-16.0) gm/dL Hct (34.0-46.0) % MCHC (31.0-37.0) g/dL Neutrophils # (1.3-7.7) k/uL Lymphocytes # (1.0-4.8) k/uL APTT 39.6 H 74.0 H (22.0-30.0) sec Sodium (137-145) mmol/L Potassium (3.5-5.1) mmol/L Carbon Dioxide (22-30) mmol/L BUN (7-17) mg/dL Creatinine (0.52-1.04) mg/dL Glucose (74-99) mg/dL Phosphorus (2.5-4.5) mg/dL Total Bilirubin (0.2-1.3) mg/dL AST (14-36) U/L Alkaline Phosphatase (38-126) U/L Total Protein (6.3-8.2) g/dL Albumin (3.5-5.0) g/dL Microbiology - Last 24 Hours (Table) 07/18/19 12:24 Blood Culture - Preliminary Blood No Growth after 48 hours Diabetes panel 07/20/19 Range/Units 03:18 Sodium 128 L (137-145) mmol/L Potassium 5.3 H (3.5-5.1) mmol/L Chloride 105 (98-107) mmol/L Carbon Dioxide 12 L (22-30) mmol/L BUN 80 H (7-17) mg/dL Creatinine 2.87 H (0.52-1.04) mg/dL Glucose 118 H (74-99) mg/dL Calcium 9.4 (8.4-10.2) mg/dL AST 50 H (14-36) U/L ALT 30 (4-34) U/L Alkaline Phosphatase 223 H (38-126) U/L Total Protein 6.0 L (6.3-8.2) g/dL Albumin 2.4 L (3.5-5.0) g/dL Calcium panel 07/20/19 Range/Units 03:18 Calcium 9.4 (8.4-10.2) mg/dL Phosphorus 5.3 H (2.5-4.5) mg/dL Albumin 2.4 L (3.5-5.0) g/dL Pituitary panel 07/20/19 Range/Units 03:18 Sodium 128 L (137-145) mmol/L Potassium 5.3 H (3.5-5.1) mmol/L Chloride 105 (98-107) mmol/L Carbon Dioxide 12 L (22-30) mmol/L BUN 80 H (7-17) mg/dL Creatinine 2.87 H (0.52-1.04) mg/dL Glucose 118 H (74-99) mg/dL Calcium 9.4 (8.4-10.2) mg/dL Adrenal panel 07/20/19 Range/Units 03:18 Sodium 128 L (137-145) mmol/L Potassium 5.3 H (3.5-5.1) mmol/L Chloride 105 (98-107) mmol/L Carbon Dioxide 12 L (22-30) mmol/L BUN 80 H (7-17) mg/dL Creatinine 2.87 H (0.52-1.04) mg/dL Glucose 118 H (74-99) mg/dL Calcium 9.4 (8.4-10.2) mg/dL Total Bilirubin 1.4 H (0.2-1.3) mg/dL AST 50 H (14-36) U/L ALT 30 (4-34) U/L Alkaline Phosphatase 223 H (38-126) U/L Total Protein 6.0 L (6.3-8.2) g/dL Albumin 2.4 L (3.5-5.0) g/dL
[2019-07-20] MEDS ORDERED: LIDOCAINE 1% INJ 10MG/ML (20 ML MDV) SQ ONE (18:10)
[2019-07-20] MEDS ORDERED: HYDROmorphone 1 MG/ML 1 ML SYRINGE IVP ONE (18:28)
[2019-07-20 19:50] LABS: Glucose,Whole Blood 108 mg/dL (75-99)
[2019-07-20] MEDS ORDERED: LORazepam 2 MG/ML INJ IV STA (20:03)
[2019-07-20] MEDS ORDERED: LORazepam 2 MG/ML INJ ONE (20:05)
[2019-07-20] MEDS: SODIUM BICARBONATE TAB 650 MG TAB PO SCH (20:25)
[2019-07-20] MEDS: ATORVASTATIN 10 MG TAB PO SCH (20:25)
[2019-07-20] MEDS ORDERED: SODIUM CHLORIDE 0.9% 1,000 ML IV SCH (20:30)
[2019-07-20 21:09] VITALS: BP 61/27
[2019-07-21] MEDS: LEVOTHYROXINE 75 MCG TAB PO SCH (04:52)
[2019-07-21 05:18] VITALS: PULSE 89
--- NOTE | 2019-07-21 05:41 | PCN ---
PROCEDURE NOTE PREOPERATIVE DIAGNOSIS: Acute on chronic renal failure. POSTOPERATIVE DIAGNOSIS: Acute on chronic renal failure. PROCEDURE: Ultrasound-guided right triple lumen dialysis catheter placed in the femoral approach. DESCRIPTION OF PROCEDURE: The patient was brought to the aquatic laborer and right groin was prepped and draped in the usual sterile manner and 1% lidocaine plain was infiltrated. Micropuncture introduced into the femoral vein. Micropuncture guide was passed and 4-Polish dilator advanced on top of the guidewire. Then we passed a regular guidewire. Then we passed a dilator and after that we placed a 3 lumen dialysis catheter on the top of the guidewire. The guidewire was removed and flushed with heparin saline and hep-locked, secured with 3-0 nylon. Patient tolerated the procedure well. MMINDIAL / IJN: [id number] /
[2019-07-21] MEDS: busPIRone HCl 5 MG TAB PO SCH (08:35)
[2019-07-21] MEDS: MULTIVITAMINS, THERA 1 EACH TAB PO SCH (08:35)
[2019-07-21] MEDS: SERTRALINE 25 MG TAB PO SCH (08:36)
[2019-07-21] MEDS: SODIUM BICARBONATE TAB 650 MG TAB PO SCH (08:36)
--- NOTE | 2019-07-21 08:46 | P.PN ---
Progress Note - Text Progress Note Date: 07/20/19 Isidra je called on the patient @ 1945. Arrived on the scene shortly after. RN notified the video games storywriter that the patient had become less responsive and had diminished breathing. Examined the patient as below. General: Elderly frail female, non-toxic, in no acute distress, appears stated age HEENT: NC/AT, anicteric sclerae, moist conjunctiva, PERRL Cardiovascular: S1/S2 wnl, no murmurs, rubs, or gallops Lungs: Clear to auscultation, bradypnea, normal respiratory effort, no accessory muscle use Abdominal: Soft, non-distended, no guarding, or rigidity Skin: Warm, dry Extremities: No edema or contractures Psychiatric: Unresponsive, fixed gaze, not withdrawing to noxious stimuli Neuro: Unable to perform Discussed the change in clinical status with the patient's family including granddaughter and grandson. Discussed the possibility of respiratory failure and cardiac arrest. The family noted that in light of recent plans to have the patient transition to hospice care, they do not wish for her to undergo CPR or be placed on life-support of any kind. They did note that they wish to attempt dialysis if she can tolerate it. The family did wish to move forward with hospice transition if possible with all focus on comfort are at this point. The patient was made a No-Code. She was given a dose of Narcan and Lopressor, with no change in her mental status. The patient will be made a comfort care.
[2019-07-21] MEDS ORDERED: PANTOPRAZOLE 40 MG TABLET PO SCH (09:00)
--- NOTE | 2019-07-21 09:30 | IR ---
Fluoroscopy INDICATION: Pain FINDINGS: Fluoroscopy time: 0.1 seconds. Images obtained: 69. 50.38 [employer]^2 Fluoroscopy for procedure documentation.. Please see complete report forthcoming from the vascular cole rgery department. IMPRESSIONS: 1. Documentation of fluoroscopy.
[2019-07-21 10:51] LABS: HCT 30.1 % (34.0-46.0); HGB 9.2 gm/dL (11.4-16.0); Hypochromasia Moderate; MCH 29.9 pg (25.0-35.0); MCHC 30.5 g/dL (31.0-37.0); MCV 98.1 fL (80.0-100.0); Mean Platelet Volume 10.4; Platelet Count 186 k/uL (150-450); RBC 3.07 m/uL (3.80-5.40); RDW 14.9 % (11.5-15.5); WBC 22.8 k/uL (3.8-10.6)
[2019-07-21 10:55] LABS: Albumin 2.3 g/dL (3.5-5.0); Magnesium 2.2 mg/dL (1.6-2.3); Phosphorus 8.4 mg/dL (2.5-4.5); Total Bilirubin 1.5 mg/dL (0.2-1.3); Total Protein 5.6 g/dL (6.3-8.2)
[2019-07-21 11:05] LABS: Potassium 6.4 mmol/L (3.5-5.1)
[2019-07-21 12:26] LABS: Band Neutrophils % 1 %; Lymphocytes # (M) 0.46 k/uL (1.0-4.8); Metamyelocytes # (M) 0.23 k/uL (0); Metamyelocytes % 1 %; Monocytes # (M) 0.91 k/uL (0-1.0); Myelocytes # (M) 0.23 k/uL (0); Myelocytes % 1 %; Neutrophils % (M) 94 %; Nucleated Red Blood Cells 0 /100 WBC (0-0); Total Cells Counted 200
[2019-07-21] MEDS ORDERED: MORPHINE SULFATE 2 MG/ML SYRINGE IVP PRN (13:55)
[2019-07-21] MEDS ORDERED: LORazepam 2 MG/ML INJ IV PRN (13:56)
--- NOTE | 2019-07-21 14:00 | P.PN ---
Subjective Progress Note Date: 07/21/19 Principal diagnosis: confusion Patient was unresponsive last night, a code was called, family contacted and patient was switched to comfort care. Plans were in place to start hospice care prior to this happening. This morning patient seems to be stuporous, she is unresponsive, not following commands or answering questions. Objective - Vital Signs Vital signs: Vital Signs Temp 97.5 F L 07/20/19 05:00 Pulse 89 07/20/19 19:58 Resp 6 L 07/20/19 19:58 BP 61/27 07/20/19 21:06 Pulse Ox 94 L 07/20/19 19:58 Intake & Output 07/20/19 07/21/19 07/21/19 18:59 06:59 18:59 Intake Total 721.085 9793 Output Total 200 25 Balance -99.044 1015 Intake: Intake, IV Titration 50.956 40 Amount Heparin Sod,Pork in 0.45% 50.956 NaCl 25,000 unit In 0.45 % NaCl 1 250ml.bag @ 12 UNITS/KG/HR 6.423 mls/hr IV .Q24H [facility] Rx#: [id number] Sodium Chloride 0.9% 1, 40 000 ml @ 10 mls/hr IV . Q24H [facility] Rx#:[id number] Oral 50 Hemodialysis 1000 Output: Urine 200 25 Hemodialysis 0 Other: Voiding Method Indwelling Catheter Indwelling Catheter - Exam General: ill appearing, no distress, appears at stated age, temporal wasting, muscle wasting, disheveled Derm: no unusual rashes/lesions no unusual ecchymoses, warm, dry Head: atraumatic, normocephalic, symmetric Eyes: EOMI, no lid lag, anicteric sclera, pupils equal round reactive to light ENT: Nose and ears atraumatic, no thrush, + pharyngeal erythema without exudates Neck: No thyromegaly, no cervical lymphadenopathy, trachea midline, supple Mouth: no lip lesion, mucus membranes moist Cardiovascular: S1S2 reg, Grade 3 murmur, positive posterior tibial pulse bilateral, 2+ edema, capillary refill less than 2 seconds Lungs: Decreased bs bilateral, no rhonchi, no rales , no accessory muscle use Abdominal: + distended and tympanic soft, nontender to palpation, no guarding, no appreciable organomegaly, normal bowel sounds Ext: + gross muscle atrophy, muscle strength 4 out of 5 in all 4 extremities grossly, no contractures, Neuro: CN II-XI grossly intact, light touch intact all 4 extremities, finger to nose within normal limits, Psych: Alert, oriented to self and being in a hospital and year, not date, angry, unable to reason - Labs CBC & Chem 7: 07/21/19 10:20 07/21/19 10:20 Labs: Abnormal Lab Results - Last 24 Hours (Table) 07/20/19 07/21/19 07/21/19 Range/Units 19:48 10:20 10:20 WBC 22.8 H (3.8-10.6) k/uL RBC 3.07 L (3.80-5.40) m/uL Hgb 9.2 L (11.4-16.0) gm/dL Hct 30.1 L (34.0-46.0) % MCHC 30.5 L (31.0-37.0) g/dL Neutrophils # (Manual) 21.60 H (1.3-7.7) k/uL Lymphocytes # (Manual) 0.46 L (1.0-4.8) k/uL Metamyelocytes # (Man) 0.23 H (0) k/uL Myelocytes # (Manual) 0.23 H (0) k/uL Sodium 131 L (137-145) mmol/L Potassium 6.4 H* (3.5-5.1) mmol/L Chloride 108 H (98-107) mmol/L Carbon Dioxide 12 L (22-30) mmol/L BUN 86 H (7-17) mg/dL Creatinine 3.71 H (0.52-1.04) mg/dL POC Glucose (mg/dL) 108 H (75-99) mg/dL Phosphorus 8.4 H (2.5-4.5) mg/dL Total Bilirubin 1.5 H (0.2-1.3) mg/dL AST 58 H (14-36) U/L Alkaline Phosphatase 195 H (38-126) U/L Total Protein 5.6 L (6.3-8.2) g/dL Albumin 2.3 L (3.5-5.0) g/dL Microbiology - Last 24 Hours (Table) 07/18/19 12:24 Blood Culture - Preliminary Blood No Growth after 48 hours Assessment and Plan Plan: End-of-life care Start morphine and Ativan IV when necessary Scopolamine patch Discussed with son at the bedside Comfort measures only Discontinue all of her other medications Discussed with care management
[2019-07-21 23:08] VITALS: RESP 8
--- NOTE | 2019-07-22 11:23 | P.DS ---
Providers Date of admission: 07/18/19 14:18 Expected date of discharge: 07/22/19 Attending physician: Yareli So DO Consults: 07/18/19 14:05 Consult Physician Urgent Consulting Provider: Ricki Masterson Consult Reason/Comments: pineal gland mass Do you want consulting provider notified?: Yes 07/18/19 16:53 Consult Physician Routine Consulting Provider: Melecio Balderrama Consult Reason/Comments: ERWIN Do you want consulting provider notified?: Yes 07/18/19 16:55 Consult Physician Routine Consulting Provider: Henry Laurent Consult Reason/Comments: Depression Do you want consulting provider notified?: Yes 07/20/19 14:48 Consult Physician Urgent Consulting Provider: Rafael Bose Consult Reason/Comments: dialysis cath placement Do you want consulting provider notified?: Yes Primary care physician: Jakob Hauser Hospital Course: Patient was on comfort/hospice care. She prior to my evaluation. Approximate dates of was 9:23 AM. For further details about this hospitalization please refer to the electronic chart. Plan - Discharge Summary Discharge Rx Participant: No New Discharge Prescriptions: No Action Atorvastatin Calcium [Lipitor] 10 mg PO HS Levothyroxine Sodium [Synthroid] 150 mcg PO DAILY Multivitamins, Thera [Multivitamin (formulary)] 1 tab PO DAILY Spironolactone 25 mg PO DAILY Furosemide [Lasix] 40 mg PO BID Discharge Medication List Atorvastatin Calcium [Lipitor] 10 mg PO HS 07/12/18 [History] Levothyroxine Sodium [Synthroid] 150 mcg PO DAILY 07/12/18 [History] Multivitamins, Thera [Multivitamin (formulary)] 1 tab PO DAILY 07/18/18 [History] Spironolactone 25 mg PO DAILY 07/04/19 [History] Furosemide [Lasix] 40 mg PO BID 07/18/19 [History] Follow up Appointment(s)/Referral(s): Jakob Hauser [Primary Care Provider] - 1-2 days
--- NOTE | 2019-07-25 08:51 | CDI ---
Documentation Clarification Form Date: 07/25/19 From: Angela Burton Phone: If you have a question about this query, please contact Julianne Palmer, Pl Sql Programmer at [phone] between 8am and 5pm. Admit Date: 07/18/19 Discharge Date: 07/22/19 Patient Name: RAMYA GREER Visit Number: [id number] ATTENTION: The Clinical Documentation Specialists (CDI) and [facility] Coding Staff appreciate your assistance in clarifying documentation. Please respond to the clarification below the line at the bottom and electronically sign. The CDI & [facility] Coding staff will review the response and follow-up if needed. Please note: Queries are made part of the Legal Health Record. If you have any questions, please contact the author of this message via ITS. Dear Dr. Shereen Crouch, Malnutrition has been documented in HP and progress notes 07/18 & 07/19. 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 Mild Protein-Calorie Malnutrition Moderate Protein-Calorie Malnutrition Severe Protein-Calorie Malnutrition Malnutrition, unspecified Other condition, please specify Unable to determine Please refer this question to Dr. León. Patient prior to my evaluation and I did not see her or evaluate MTDD
--- NOTE | 2019-08-01 06:14 | CDI ---
Documentation Clarification Form Date: 08/01/19 From: Angela Burton Phone: If you have a question about this query, please contact Julianne Palmer, Shellfish Processing Laborer at [phone] between 8am and 5pm. Admit Date: 07/18/19 Discharge Date: 07/22/19 Patient Name: RAMYA GREER Visit Number: [id number] ATTENTION: The Clinical Documentation Specialists (CDI) and [facility] Coding Staff appreciate your assistance in clarifying documentation. Please respond to the clarification below the line at the bottom and electronically sign. The CDI & [facility] Coding staff will review the response and follow-up if needed. Please note: Queries are made part of the Legal Health Record. If you have any questions, please contact the author of this message via ITS. Dear Dr. Harriet León, Malnutrition has been documented in HP and progress notes 07/18 & 07/19. 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 Mild Protein-Calorie Malnutrition Moderate Protein-Calorie Malnutrition Severe Protein-Calorie Malnutrition Malnutrition, unspecified Other condition, please specify Unable to determine Mild Protein-Calorie Malnutrition MTDD
== END 2019-07-22 12:38 | disposition expired | DRG 441 ==
LOC: EC 11:38 → OBSVTOIN 14:18 → 5NMEDONC 14:18
PROVIDERS: ADMIT Internal Medicine; ATTEND Internal Medicine
PROC: 5A1D70Z Performance of Urinary Filtration, Intermittent, Less than 6 Hours Per Day (ICD-10-PCS; principal; 2019-07-20 17:55)
PROC: 06HY33Z Insertion of Infusion Device into Lower Vein, Percutaneous Approach (ICD-10-PCS; 2019-07-20 17:55)
DX: K76.7 Hepatorenal syndrome (principal); N17.0 Acute kidney failure with tubular necrosis; G93.41 Metabolic encephalopathy; R40.2314 Coma scale, best motor response, none, 24 hours or more after hospital admission; R40.2114 Coma scale, eyes open, never, 24 hours or more after hospital admission; R40.2214 Coma scale, best verbal response, none, 24 hours or more after hospital admission; K72.00 Acute and subacute hepatic failure without coma; D68.0 Von Willebrand disease; E44.1 Mild protein-calorie malnutrition; E87.2 Acidosis; R18.8 Other ascites; I13.0 Hypertensive heart and chronic kidney disease with heart failure and stage 1 through stage 4 chronic kidney disease, or unspecified chronic kidney disease; E87.1 Hypo-osmolality and hyponatremia; I50.32 Chronic diastolic (congestive) heart failure; N18.4 Chronic kidney disease, stage 4 (severe); K74.69 Other cirrhosis of liver; D63.1 Anemia in chronic kidney disease; E83.39 Other disorders of phosphorus metabolism; R54 Age-related physical debility; Z51.5 Encounter for palliative care; Z66 Do not resuscitate; Z20.828 Contact with and (suspected) exposure to other viral communicable diseases; E86.0 Dehydration; E87.5 Hyperkalemia; E86.1 Hypovolemia; E34.8 Other specified endocrine disorders; I08.1 Rheumatic disorders of both mitral and tricuspid valves; R91.1 Solitary pulmonary nodule; F41.9 Anxiety disorder, unspecified; F32.9 Major depressive disorder, single episode, unspecified; T50.906A Underdosing of unspecified drugs, medicaments and biological substances, initial encounter; Z91.128 Patient's intentional underdosing of medication regimen for other reason; M81.0 Age-related osteoporosis without current pathological fracture; E78.5 Hyperlipidemia, unspecified; E03.9 Hypothyroidism, unspecified; M19.90 Unspecified osteoarthritis, unspecified site; Z79.890 Hormone replacement therapy; Z68.20 Body mass index [BMI] 20.0-20.9, adult; Z79.899 Other long term (current) drug therapy; Y63.6 Underdosing and nonadministration of necessary drug, medicament or biological substance; Z90.13 Acquired absence of bilateral breasts and nipples; Z85.3 Personal history of malignant neoplasm of breast; Z85.820 Personal history of malignant melanoma of skin; Z87.19 Personal history of other diseases of the digestive system; Z98.890 Other specified postprocedural states; Z88.6 Allergy status to analgesic agent; Z82.49 Family history of ischemic heart disease and other diseases of the circulatory system; Z83.2 Family history of diseases of the blood and blood-forming organs and certain disorders involving the immune mechanism; Z82.3 Family history of stroke
CPT/HCPCS: 36415; 36556; 70450; 70544; 70551; 70552; 71046; 76770; 77001; 80053; 81003; 82140; 83605; 83735; 83880; 84100; 84132; 84439; 84443; 84484; 85025; 85027; 85610; 85730; 87040; 90935; 92950; 93005; 96361; 96374; 96375; 99285